=== PATIENT | male | born 1960 | race Caucasian/White ===

== ENCOUNTER 2018-07-03 13:46 | Inpatient (IN) | payer MEDICARE ==
[~2018-07-03] VITALS: Ht 188 cm; Wt 122.7 kg
[2018-07-03] MEDS ORDERED: NEOMY/BACITR/POLYMYXIN OINT PACKET. TP ONE (14:15)
[2018-07-03] MEDS ORDERED: IV NORMAL SALINE 1000ML BAG 1,000 ML IV ONE ×3 (14:15→16:00)
[2018-07-03 14:39] LABS: BASO # 0.2 x10^3/uL (0.0-0.2); BASO % 1 % (0-3); EOS # 0.4 x10^3/uL (0.0-0.7); EOS % 1 % (0-3); HEMATOCRIT 55.3 % (39.0-53.0); HEMOGLOBIN 17.5 g/dL (13.0-17.5); LYMPH # 8.8 x10^3/uL (1.0-4.8); LYMPH % 29 % (24-48); MEAN CORPUSCULAR HEMOGLOBIN 36 pg (25-35); MEAN CORPUSCULAR HGB CONC 32 g/dL (31-37); MEAN CORPUSCULAR VOLUME 112 fL (79-100); MONO # 1.8 x10^3/uL (0.0-1.1); MONO % 6 % (0-9); NEUT # 19.3 x10^3uL (1.8-7.7); NEUT % 63 % (31-73); PLATELET COUNT 373 x10^3/uL (140-400); RED BLOOD COUNT 4.92 x10^6/uL (4.30-5.70); WHITE BLOOD COUNT 30.5 x10^3/uL (4.0-11.0)
--- NOTE | 2018-07-03 14:39 | RAD ---
EXAM: Head and cervical spine CT without contrast. HISTORY: Found down. TECHNIQUE: Computed tomographic images of the head and cervical spine were obtained without contrast. *One or more of the following individualized dose reduction techniques were utilized for this examination: 1. Automated exposure control. 2. Adjustment of the mA and/or kV according to patient size. 3. Use of iterative reconstruction technique. COMPARISON: None. FINDINGS: Head: There is no hemorrhage. There is no mass effect or midline shift. There is no hydrocephalus. There are areas of decreased attenuation within the cerebral white matter, nonspecific and likely related to chronic small vessel disease. The visualized portions of the orbits, paranasal sinuses and mastoid air cells are unremarkable. No suspicious calvarial lesion is seen. Cervical spine: There is no significant listhesis. The vertebral bodies are normal in height and the disc spaces are preserved. There is mild endplate remodeling at multiple levels. There is facet arthropathy at multiple levels. No severe stenosis is seen. IMPRESSION: No acute intracranial finding or evidence of acute cervical spine trauma. Electronically signed by: Germaien Norman MD (07/03/2018 2:36 PM) [place] [id number]
--- NOTE | 2018-07-03 14:44 | EKG ---
[facility] [address] [place] [address] Test Date: 2018-07-03 Test Time: 14:00:16 Pat Name: YENIFER REESE Department: Room: Gender: M Life Underwriter: : 1960 Requested By: MARY ANNE RADFORD Order Number: [id number] Reading MD: Crispin Dooley MD Measurements Intervals [place] Rate: 156 P: -157 AL: 110 QRS: 115 QRSD: 86 T: -14 QT: 242 QTc: 390 Interpretive Statements PROBABLE ATRIAL FIBRILLATION/FLUTTER NON-SPECIFIC ST/T CHANGES Electronically Signed On 07-09-2018 10:35:32 CDT by Crispin Dooley MD
[2018-07-03 14:53] LABS: BILIRUBIN,URINE NEGATIVE (NEG); CLARITY,URINE CLEAR; COLOR,URINE YELLOW; NITRITE,URINE NEGATIVE (NEG); PROTEIN,URINE NEGATIVE (NEG-TRACE); UROBILINOGEN,URINE 0.2 mg/dL (0.2 mg/dL)
[2018-07-03 15:00] LABS: BARBITURATES NEG (NEG); BENZODIAZEPINES NEG (NEG); CANNABINOIDS NEG (NEG); COCAINE NEG (NEG); METHADONE NEG (NEG); OPIATES NEG (NEG); PHENCYCLIDINE NEG (NEG)
[2018-07-03 15:02] LABS: AMPHETAMINE/METHAMPHETAMINE NEG (NEG)
[2018-07-03 15:07] LABS: CALCIUM 9.7 mg/dL (8.5-10.1); CREATININE 2.4 mg/dL (0.7-1.3); GFR 28.1; POTASSIUM 5.5 mmol/L (3.5-5.1)
[2018-07-03 15:13] LABS: ALBUMIN 3.2 g/dL (3.4-5.0); ALBUMIN/GLOBULIN RATIO 0.9 (1.0-1.7); MAGNESIUM 4.9 mg/dL (1.8-2.4); TOTAL BILIRUBIN 0.3 mg/dL (0.2-1.0); TOTAL PROTEIN 6.6 g/dL (6.4-8.2)
[2018-07-03 15:15] LABS: BACTERIA,URINE 0 /HPF (0-FEW); RBC,URINE OCC /HPF (0-2); SQUAMOUS EPITHELIAL CELL,UR OCC /LPF; WBC,URINE 0 /HPF (0-4)
[2018-07-03 16:00] LABS: % BANDS 7 % (0-9); % EOS 1 % (0-5); % LYMPHS 35 % (24-48); % METAS 4 % (0-0); % MONOS 5 % (0-10); % MYELOS 3 % (0-0); % SEGS 45 % (35-66)
[2018-07-03 16:01] LABS: PLT ESTIMATE ADEQUATE (ADEQUATE)
[2018-07-03 16:04] LABS: POLYCHROMASIA SLIGHT
--- NOTE | 2018-07-03 16:08 | EKG ---
[facility] [address] [place] [address] Test Date: 2018-07-03 Test Time: 15:58:27 Pat Name: YENIFER REESE Department: Room: Gender: M School Age Teacher: : 1960 Requested By: MARY ANNE RADFORD Order Number: [id number] Reading MD: Crispin Dooley MD Measurements Intervals [place] Rate: 110 P: 34 [place]: 150 QRS: 91 QRSD: 90 T: 5 QT: 310 QTc: 425 Interpretive Statements SINUS TACHYCARDIA Electronically Signed On 07-09-2018 10:35:55 CDT by Crispin Dooley MD
[2018-07-03] MEDS ORDERED: PIPERACILLIN/TAZOBACTAM 4.5 GM in IV NORMAL SALINE 100ML 100 ML IV ONE (16:30)
[2018-07-03] MEDS ORDERED: DEXTROSE 50% 25 GM / 50ML DISP.SYRIN. IV PRN ×2 (16:30→17:00)
[2018-07-03] MEDS ORDERED: ONDANSETRON PF 4 MG/2 ML VIAL. IV PRN ×2 (16:30→17:00)
--- NOTE | 2018-07-03 16:53 | PDOC1 ---
History and Physical Date of Admission Date of Admission 07/03/18 Identification/Chief Complaint Chief Complaint AMS Source Source: Chart review, Patient History of Present Illness History of Present Illness 58yo M, was sent by EMS for AMS. pt looks calm now, seen in ER, said he was walking and fell , syncoped, very weak and could not get up. Pt denies dehydration, denies fever, chills, cough , sob, chest pain, diarrhea. however, not sure how much his words is reliable given that ER nurse told me that his freind said he had some mental issues and fights and was kicked out of his house/apt recently. Pt said he lives alone. As per ERP, pt was found facing down on the street, recreational therapy technician and EMS WAs called. Pt was very lethargic in ER at arrival, with HR 140s, BP 80s. now HR 110s and BP 110s after 1l IVF bolus. however, he was found very dehydrated and acidotic, with wbc 30, LA 30, Cr 2.4 , hyperglycemia, and high CK 800s. EKG sinus tach. Past Medical History Cardiovascular: HTN Endocrine: Diabetes Past Surgical History Past Surgical History: No pertinent history Family History Family History: Hypertension Social History Smoke: No ALCOHOL: none Drugs: None Current Medications Current Medications Current Medications Medications (Trade) Dose Ordered Sig/Natasha Start Time Stop Time Status Last Admin Dose Admin Dextrose (Dextrose 50%-Water Syringe) 12.5 gm PRN Q15MIN PRN 07/03/18 16:30 Insulin Human Lispro (HumaLOG) 0-5 UNITS TIDWMEALS 07/03/18 17:00 Neomycin/ Polymyxin/ Bacitracin (Triple Antibiotic Ointment) 1 pkt 1X ONCE 07/03/18 14:15 07/03/18 14:50 DC Ondansetron HCl (Zofran) 4 mg PRN Q8HRS PRN 07/03/18 16:30 07/04/18 16:29 Piperacillin Sod/ Tazobactam Sod 4.5 gm/Sodium Chloride 100 ml @ 200 mls/hr 1X ONCE 07/03/18 16:30 07/03/18 16:59 Sodium Chloride 1,000 ml @ 1,000 mls/hr 1X ONCE 07/03/18 16:00 07/03/18 16:59 Allergies Allergies Allergies Coded Allergies Type Severity Reaction Last Updated Verified No Known Drug Allergies 07/03/18 No ROS Review of System CONSTITUTIONAL: No fever or chills EYES: No recent changes SKIN: No rash or itching CARDIOVASCULAR: No chest pain, syncope, palpitations, or edema RESPIRATORY: No SOB or cough GASTROINTESTINAL: No nausea, vomiting or abdominal pain NEUROLOGICAL: No headaches or weakness ENDOCRINE: No cold or heat intolerance GENITOURINARY: No urgency or frequency of urination MUSCULOSKELETAL: No back pain or joint pain LYMPHATICS: No enlarged lymph nodes PSYCHIATRIC: No anxiety or depression Physical Exam Physical Exam GEN.: mild distress. Alert and oriented x3. HEENT: Head is normocephalic, atraumatic NECK: Supple. LUNGS: Clear to auscultation. HEART: RRR, S1, S2 present. Peripheral pulses intact ABDOMEN: Soft, nontender. Positive bowel sounds. EXTREMITIES: Without any cyanosis. NEUROLOGIC: Normal speech, normal tone PSYCHIATRIC: Normal affect, normal mood. SKIN: bl knee skin laceration from fall. Vitals Vitals Vital Signs Date Time Temp Pulse Resp B/P (MAP) Pulse Ox O2 Delivery O2 Flow Rate FiO2 07/03/18 13:46 97.6 148 44 85/46 (59) 85 Room Air 97.6 Labs Labs Laboratory Tests Test 07/03/18 13:55 07/03/18 14:04 07/03/18 14:30 07/03/18 14:51 White Blood Count 30.5 x10^3/uL (4.0-11.0) Red Blood Count 4.92 x10^6/uL (4.30-5.70) Hemoglobin 17.5 g/dL (13.0-17.5) Hematocrit 55.3 % (39.0-53.0) Mean Corpuscular Volume 112 fL (79-100) Mean Corpuscular Hemoglobin 36 pg (25-35) Mean Corpuscular Hemoglobin Concent 32 g/dL (31-37) Red Cell Distribution Width 15.0 % (11.5-14.5) Platelet Count 373 x10^3/uL (140-400) Neutrophils (%) (Auto) 63 % (31-73) Lymphocytes (%) (Auto) 29 % (24-48) Monocytes (%) (Auto) 6 % (0-9) Eosinophils (%) (Auto) 1 % (0-3) Basophils (%) (Auto) 1 % (0-3) Neutrophils # (Auto) 19.3 x10^3uL (1.8-7.7) Lymphocytes # (Auto) 8.8 x10^3/uL (1.0-4.8) Monocytes # (Auto) 1.8 x10^3/uL (0.0-1.1) Eosinophils # (Auto) 0.4 x10^3/uL (0.0-0.7) Basophils # (Auto) 0.2 x10^3/uL (0.0-0.2) Segmented Neutrophils % 45 % (35-66) Band Neutrophils % 7 % (0-9) Lymphocytes % 35 % (24-48) Monocytes % 5 % (0-10) Eosinophils % 1 % (0-5) Metamyelocytes % 4 % (0-0) Myelocytes % 3 % (0-0) Platelet Estimate Adequate (ADEQUATE) Large Platelets Few Polychromasia Slight Macrocytosis Slight Prothrombin Time 15.0 SEC (11.7-14.0) Prothromb Time International Ratio 1.2 (0.8-1.1) Lactic Acid Level 30.1 mmol/L (0.4-2.0) Troponin I Quantitative < 0.017 ng/mL (0.000-0.055) Ethyl Alcohol Level < 10 mg/dL (0-10) Glucose (Fingerstick) 249 mg/dL (70-99) Urine Collection Type Unknown Urine Color Yellow Urine Clarity Clear Urine pH 7.0 Urine Specific [place] 1.010 Urine Protein Negative mg/dL (NEG-TRACE) Urine Glucose (UA) 500 mg/dL (NEG) Urine Ketones (Stick) Negative mg/dL (NEG) Urine Blood Small (NEG) Urine Nitrite Negative (NEG) Urine Bilirubin Negative (NEG) Urine Urobilinogen Dipstick 0.2 mg/dL (0.2 mg/dL) Urine Leukocyte Esterase Negative (NEG) Urine RBC Occ /HPF (0-2) Urine WBC 0 /HPF (0-4) Urine Squamous Epithelial Cells Occ /LPF Urine Bacteria 0 /HPF (0-FEW) Urine Opiates Screen Neg (NEG) Urine Methadone Screen Neg (NEG) Urine Barbiturates Neg (NEG) Urine Phencyclidine Screen Neg (NEG) Urine Amphetamine/Methamphetamine Neg (NEG) Urine Benzodiazepines Screen Neg (NEG) Urine Cocaine Screen Neg (NEG) Urine Cannabinoids Screen Neg (NEG) Urine Ethyl Alcohol Neg (NEG) Sodium Level 132 mmol/L (136-145) Potassium Level 5.5 mmol/L (3.5-5.1) Chloride Level 94 mmol/L (98-107) Carbon Dioxide Level 15 mmol/L (21-32) Anion Gap 23 (6-14) Blood Urea Nitrogen 30 mg/dL (8-26) Creatinine 2.4 mg/dL (0.7-1.3) Estimated GFR (Cockcroft-Gault) 28.1 BUN/Creatinine Ratio 13 (6-20) Glucose Level 265 mg/dL (70-99) Calcium Level 9.7 mg/dL (8.5-10.1) Magnesium Level 4.9 mg/dL (1.8-2.4) Total Bilirubin 0.3 mg/dL (0.2-1.0) Aspartate Amino Transf (AST/SGOT) 33 U/L (15-37) Alanine Aminotransferase (ALT/SGPT) 71 U/L (16-63) Alkaline Phosphatase 89 U/L (46-116) Creatine Kinase 872 U/L (39-308) Creatine Kinase MB (Mass) 5.4 ng/mL (0.0-3.6) Creatine Kinase MB Relative Index 0.6 % (0-4) UM-Uak-N-Type Natriuretic Peptide 44 pg/mL (0-124) Total Protein 6.6 g/dL (6.4-8.2) Albumin 3.2 g/dL (3.4-5.0) Albumin/Globulin Ratio 0.9 (1.0-1.7) Lipase 279 U/L (73-393) Laboratory Tests Test 07/03/18 13:55 07/03/18 14:04 07/03/18 14:30 07/03/18 14:51 White Blood Count 30.5 x10^3/uL (4.0-11.0) Red Blood Count 4.92 x10^6/uL (4.30-5.70) Hemoglobin 17.5 g/dL (13.0-17.5) Hematocrit 55.3 % (39.0-53.0) Mean Corpuscular Volume 112 fL (79-100) Mean Corpuscular Hemoglobin 36 pg (25-35) Mean Corpuscular Hemoglobin Concent 32 g/dL (31-37) Red Cell Distribution Width 15.0 % (11.5-14.5) Platelet Count 373 x10^3/uL (140-400) Neutrophils (%) (Auto) 63 % (31-73) Lymphocytes (%) (Auto) 29 % (24-48) Monocytes (%) (Auto) 6 % (0-9) Eosinophils (%) (Auto) 1 % (0-3) Basophils (%) (Auto) 1 % (0-3) Neutrophils # (Auto) 19.3 x10^3uL (1.8-7.7) Lymphocytes # (Auto) 8.8 x10^3/uL (1.0-4.8) Monocytes # (Auto) 1.8 x10^3/uL (0.0-1.1) Eosinophils # (Auto) 0.4 x10^3/uL (0.0-0.7) Basophils # (Auto) 0.2 x10^3/uL (0.0-0.2) Segmented Neutrophils % 45 % (35-66) Band Neutrophils % 7 % (0-9) Lymphocytes % 35 % (24-48) Monocytes % 5 % (0-10) Eosinophils % 1 % (0-5) Metamyelocytes % 4 % (0-0) Myelocytes % 3 % (0-0) Platelet Estimate Adequate (ADEQUATE) Large Platelets Few Polychromasia Slight Macrocytosis Slight Prothrombin Time 15.0 SEC (11.7-14.0) Prothromb Time International Ratio 1.2 (0.8-1.1) Lactic Acid Level 30.1 mmol/L (0.4-2.0) Troponin I Quantitative < 0.017 ng/mL (0.000-0.055) Ethyl Alcohol Level < 10 mg/dL (0-10) Glucose (Fingerstick) 249 mg/dL (70-99) Urine Collection Type Unknown Urine Color Yellow Urine Clarity Clear Urine pH 7.0 Urine Specific [place] 1.010 Urine Protein Negative mg/dL (NEG-TRACE) Urine Glucose (UA) 500 mg/dL (NEG) Urine Ketones (Stick) Negative mg/dL (NEG) Urine Blood Small (NEG) Urine Nitrite Negative (NEG) Urine Bilirubin Negative (NEG) Urine Urobilinogen Dipstick 0.2 mg/dL (0.2 mg/dL) Urine Leukocyte Esterase Negative (NEG) Urine RBC Occ /HPF (0-2) Urine WBC 0 /HPF (0-4) Urine Squamous Epithelial Cells Occ /LPF Urine Bacteria 0 /HPF (0-FEW) Urine Opiates Screen Neg (NEG) Urine Methadone Screen Neg (NEG) Urine Barbiturates Neg (NEG) Urine Phencyclidine Screen Neg (NEG) Urine Amphetamine/Methamphetamine Neg (NEG) Urine Benzodiazepines Screen Neg (NEG) Urine Cocaine Screen Neg (NEG) Urine Cannabinoids Screen Neg (NEG) Urine Ethyl Alcohol Neg (NEG) Sodium Level 132 mmol/L (136-145) Potassium Level 5.5 mmol/L (3.5-5.1) Chloride Level 94 mmol/L (98-107) Carbon Dioxide Level 15 mmol/L (21-32) Anion Gap 23 (6-14) Blood Urea Nitrogen 30 mg/dL (8-26) Creatinine 2.4 mg/dL (0.7-1.3) Estimated GFR (Cockcroft-Gault) 28.1 BUN/Creatinine Ratio 13 (6-20) Glucose Level 265 mg/dL (70-99) Calcium Level 9.7 mg/dL (8.5-10.1) Magnesium Level 4.9 mg/dL (1.8-2.4) Total Bilirubin 0.3 mg/dL (0.2-1.0) Aspartate Amino Transf (AST/SGOT) 33 U/L (15-37) Alanine Aminotransferase (ALT/SGPT) 71 U/L (16-63) Alkaline Phosphatase 89 U/L (46-116) Creatine Kinase 872 U/L (39-308) Creatine Kinase MB (Mass) 5.4 ng/mL (0.0-3.6) Creatine Kinase MB Relative Index 0.6 % (0-4) OR-Hyl-K-Type Natriuretic Peptide 44 pg/mL (0-124) Total Protein 6.6 g/dL (6.4-8.2) Albumin 3.2 g/dL (3.4-5.0) Albumin/Globulin Ratio 0.9 (1.0-1.7) Lipase 279 U/L (73-393) VTE Prophylaxis Ordered VTE Prophylaxis Devices: Yes VTE Pharmacological Prophylaxi: Yes Assessment/Plan Assessment/Plan AMS, metabolic encephalopathy fall, syncope possible sepsis hypotension resolved with iv bolus dehydration metabolic acidosis lactate acidosis TARYN, ATN, vs vasomotor hyperglycemia, dm2 htn hld leukocytosis h/o mental issues mild malnutrition plan: ID, renal consult renal US add zyvox and zosyn for now, fu bcx, ucx ssi, check hba1c need to verify home meds NS 125cc/h for now, 3L in ER, will repeat LA, BMP later repeat labs tmr dvt ppx PTOT ada DIET CATHERINE RAMIREZ MD Jul 03, 2018 16:53
[2018-07-03] MEDS ORDERED: INSULIN LISPRO 300 UNITS/3 ML INSULN.PEN. SQ SCH (17:00)
[2018-07-03] MEDS ORDERED: PIP/TAZO PER PHARMACY MC PRN (17:00)
[2018-07-03] MEDS ORDERED: DOCUSATE SODIUM 100 MG CAPSULE. PO PRN (17:00)
--- NOTE | 2018-07-03 17:10 | RAD ---
CHEST AP ONLY History: Syncope today, fall, diabetes, hypertension Comparison: None. Findings: Single view of the chest is submitted. Pericardial cardiac silhouette is upper limits of normal. There is no pneumothorax or significant pleural fluid. There is reticular interstitial opacity bilaterally of uncertain chronicity. There is no lobar consolidation. Impression: 1. There is no lobar consolidation. There is some reticular interstitial opacity bilaterally of uncertain chronicity. Electronically signed by: Louis Hernandez MD (07/03/2018 5:07 PM) [id number]
--- NOTE | 2018-07-03 17:29 | RAD ---
Three-view left shoulder radiographs 07/03/2018 CLINICAL HISTORY: Fall with injury to the left shoulder. AP internal and external rotation and transscapular digital radiographs of the left shoulder were obtained. No fracture or dislocation of the left shoulder is seen. Mild degenerative changes are seen involving the left humeral joint. Mild to moderate degenerative changes are seen involving the left AC joint. IMPRESSION: No fracture or dislocation of the left shoulder is seen. Electronically signed by: Gabriel Caal MD (07/03/2018 5:25 PM) [facility]
--- NOTE | 2018-07-03 17:30 | RAD ---
Three-view left knee radiographs 07/04/2018 CLINICAL HISTORY: Fall with injury to the left knee. Portable AP, lateral and oblique digital radiographs of the left knee were obtained. No fracture or dislocation of the left knee is seen. There is no radiographic evidence of a joint effusion. IMPRESSION: No fracture or dislocation of the left knee is seen. Electronically signed by: Gabriel Caal MD (07/03/2018 5:26 PM) [facility]
--- NOTE | 2018-07-03 17:45 | PHYS DOC ---
Past Medical History Past Medical History: Bipolar, Diabetes-Type II, High Cholesterol, Hypertension Past Surgical History: No Surgical History Alcohol Use: None Drug Use: None Adult General Chief Complaint Chief Complaint: LOSS OF CONSCIOUSNESS HPI HPI Patient is a 58 year old [f__sex] who presents with [] Review of Systems Review of Systems Constitutional: Denies fever or chills [] Eyes: Denies change in visual acuity, redness, or eye pain [] HENT: Denies nasal congestion or sore throat [] Respiratory: Denies cough or shortness of breath [] Cardiovascular: No additional information not addressed in HPI [] GI: Denies abdominal pain, nausea, vomiting, bloody stools or diarrhea [] : Denies dysuria or hematuria [] Musculoskeletal: Denies back pain or joint pain [] Integument: Denies rash or skin lesions [] Neurologic: Denies headache, focal weakness or sensory changes [] Endocrine: Denies polyuria or polydipsia [] All other systems were reviewed and found to be within normal limits, except as documented in this note. Current Medications Current Medications Current Medications Medications (Trade) Dose Ordered Sig/Natasha Start Time Stop Time Status Last Admin Dose Admin Acetaminophen (Tylenol) 650 mg PRN Q6HRS PRN 07/03/18 17:00 Dextrose (Dextrose 50%-Water Syringe) 12.5 gm PRN Q15MIN PRN 07/03/18 17:00 Docusate Sodium (Colace) 100 mg PRN DAILY PRN 07/03/18 17:00 Heparin Sodium (Porcine) (Heparin Sq) 5,000 unit Q8HRS 07/03/18 22:00 Insulin Human Lispro (HumaLOG) 0-9 UNITS TIDWMEALS 07/03/18 17:00 UNV Linezolid/Dextrose 300 ml @ 300 mls/hr 1X ONCE 07/03/18 18:00 07/03/18 18:59 Morphine Sulfate (Morphine Sulfate) 2 mg PRN Q2HR PRN 07/03/18 17:00 Neomycin/ Polymyxin/ Bacitracin (Triple Antibiotic Ointment) 1 pkt 1X ONCE 07/03/18 14:15 07/03/18 14:50 DC Ondansetron HCl (Zofran) 4 mg PRN Q6HRS PRN 07/03/18 17:00 Piperacillin Sod/ Tazobactam Sod (Zosyn Per Pharmacy) 1 each PRN DAILY PRN 07/03/18 17:00 UNV Piperacillin Sod/ Tazobactam Sod 3.375 gm/Sodium Chloride 50 ml @ 100 mls/hr Q6HRS 07/04/18 00:00 UNV Piperacillin Sod/ Tazobactam Sod 4.5 gm/Sodium Chloride 100 ml @ 200 mls/hr 1X ONCE 07/03/18 16:30 07/03/18 16:59 DC Sodium Chloride 1,000 ml @ 125 mls/hr Q8H 07/03/18 17:00 Tramadol HCl (Ultram) 50 mg PRN Q6HRS PRN 07/03/18 17:00 Allergies Allergies Allergies Coded Allergies Type Severity Reaction Last Updated Verified No Known Drug Allergies 07/03/18 No Physical Exam Physical Exam Constitutional: Well developed, well nourished, no acute distress, non-toxic appearance. [] HENT: Normocephalic, atraumatic, bilateral external ears normal, oropharynx moist, no oral exudates, nose normal. [] Eyes: PERRLA, EOMI, conjunctiva normal, no discharge. [] Neck: Normal range of motion, no tenderness, supple, no stridor. [] Cardiovascular:Heart rate regular rhythm, no murmur [] Lungs & Thorax: Bilateral breath sounds clear to auscultation [] Abdomen: Bowel sounds normal, soft, no tenderness, no masses, no pulsatile masses. [] Skin: Warm, dry, no erythema, no rash. [] Back: No tenderness, no CVA tenderness. [] Extremities: No tenderness, no cyanosis, no clubbing, ROM intact, no edema. [] Neurologic: Alert and oriented X 3, normal motor function, normal sensory function, no focal deficits noted. [] Psychologic: Affect normal, judgement normal, mood normal. [] Current Patient Data Vital Signs Vital Signs Date Time Temp Pulse Resp B/P (MAP) Pulse Ox O2 Delivery O2 Flow Rate FiO2 07/03/18 16:30 108 24 94 07/03/18 13:46 97.6 85/46 (59) Room Air 97.6 Lab Values Laboratory Tests Test 07/03/18 13:55 07/03/18 14:04 07/03/18 14:30 07/03/18 14:51 White Blood Count 30.5 x10^3/uL (4.0-11.0) H Red Blood Count 4.92 x10^6/uL (4.30-5.70) Hemoglobin 17.5 g/dL (13.0-17.5) Hematocrit 55.3 % (39.0-53.0) H Mean Corpuscular Volume 112 fL (79-100) H Mean Corpuscular Hemoglobin 36 pg (25-35) H Mean Corpuscular Hemoglobin Concent 32 g/dL (31-37) Red Cell Distribution Width 15.0 % (11.5-14.5) H Platelet Count 373 x10^3/uL (140-400) Neutrophils (%) (Auto) 63 % (31-73) Lymphocytes (%) (Auto) 29 % (24-48) Monocytes (%) (Auto) 6 % (0-9) Eosinophils (%) (Auto) 1 % (0-3) Basophils (%) (Auto) 1 % (0-3) Neutrophils # (Auto) 19.3 x10^3uL (1.8-7.7) H Lymphocytes # (Auto) 8.8 x10^3/uL (1.0-4.8) H Monocytes # (Auto) 1.8 x10^3/uL (0.0-1.1) H Eosinophils # (Auto) 0.4 x10^3/uL (0.0-0.7) Basophils # (Auto) 0.2 x10^3/uL (0.0-0.2) Segmented Neutrophils % 45 % (35-66) Band Neutrophils % 7 % (0-9) Lymphocytes % 35 % (24-48) Monocytes % 5 % (0-10) Eosinophils % 1 % (0-5) Metamyelocytes % 4 % (0-0) H Myelocytes % 3 % (0-0) H Platelet Estimate Adequate (ADEQUATE) Large Platelets Few Polychromasia Slight Macrocytosis Slight Prothrombin Time 15.0 SEC (11.7-14.0) H Prothrombin Time INR 1.2 (0.8-1.1) H Lactic Acid Level 30.1 mmol/L (0.4-2.0) *H Troponin I Quantitative < 0.017 ng/mL (0.000-0.055) Ethyl Alcohol Level < 10 mg/dL (0-10) Glucose (Fingerstick) 249 mg/dL (70-99) H Urine Collection Type Unknown Urine Color Yellow Urine Clarity Clear Urine pH 7.0 Urine Specific [place] 1.010 Urine Protein Negative mg/dL (NEG-TRACE) Urine Glucose (UA) 500 mg/dL (NEG) Urine Ketones (Stick) Negative mg/dL (NEG) Urine Blood Small (NEG) Urine Nitrite Negative (NEG) Urine Bilirubin Negative (NEG) Urine Urobilinogen Dipstick 0.2 mg/dL (0.2 mg/dL) Urine Leukocyte Esterase Negative (NEG) Urine RBC Occ /HPF (0-2) Urine WBC 0 /HPF (0-4) Urine Squamous Epithelial Cells Occ /LPF Urine Bacteria 0 /HPF (0-FEW) Urine Opiates Screen Neg (NEG) Urine Methadone Screen Neg (NEG) Urine Barbiturates Neg (NEG) Urine Phencyclidine Screen Neg (NEG) Urine Amphetamine/Methamphetamine Neg (NEG) Urine Benzodiazepines Screen Neg (NEG) Urine Cocaine Screen Neg (NEG) Urine Cannabinoids Screen Neg (NEG) Urine Ethyl Alcohol Neg (NEG) Sodium Level 132 mmol/L (136-145) L Potassium Level 5.5 mmol/L (3.5-5.1) H Chloride Level 94 mmol/L (98-107) L Carbon Dioxide Level 15 mmol/L (21-32) L Anion Gap 23 (6-14) H Blood Urea Nitrogen 30 mg/dL (8-26) H Creatinine 2.4 mg/dL (0.7-1.3) H Estimated GFR (Cockcroft-Gault) 28.1 BUN/Creatinine Ratio 13 (6-20) Glucose Level 265 mg/dL (70-99) H Calcium Level 9.7 mg/dL (8.5-10.1) Magnesium Level 4.9 mg/dL (1.8-2.4) H Total Bilirubin 0.3 mg/dL (0.2-1.0) Aspartate Amino Transferase (AST) 33 U/L (15-37) Alanine Aminotransferase (ALT) 71 U/L (16-63) H Alkaline Phosphatase 89 U/L (46-116) Creatine Kinase 872 U/L (39-308) H Creatine Kinase MB (Mass) 5.4 ng/mL (0.0-3.6) H Creatine Kinase MB Relative Index 0.6 % (0-4) LR-Ipu-P-Type Natriuretic Peptide 44 pg/mL (0-124) Total Protein 6.6 g/dL (6.4-8.2) Albumin 3.2 g/dL (3.4-5.0) L Albumin/Globulin Ratio 0.9 (1.0-1.7) L Lipase 279 U/L (73-393) Laboratory Tests 07/03/18 13:55 Laboratory Tests 07/03/18 14:51 EKG EKG @1400 Sinus tachycardia at 156bpm, baseline artifact, NO ST elevation @1558 Sinus tachycardia at 110bpm, No ST elevation, nonspecific t wave inversion III Radiology/Procedures Radiology/Procedures PROCEDURE: CT HEAD AND CERVICAL SPINE WO EXAM: Head and cervical spine CT without contrast. HISTORY: Found down. TECHNIQUE: Computed tomographic images of the head and cervical spine were obtained without contrast. *One or more of the following individualized dose reduction techniques were utilized for this examination: 1. Automated exposure control. 2. Adjustment of the mA and/or kV according to patient size. 3. Use of iterative reconstruction technique. COMPARISON: None. FINDINGS: Head: There is no hemorrhage. There is no mass effect or midline shift. There is no hydrocephalus. There are areas of decreased attenuation within the cerebral white matter, nonspecific and likely related to chronic small vessel disease. The visualized portions of the orbits, paranasal sinuses and mastoid air cells are unremarkable. No suspicious calvarial lesion is seen. Cervical spine: There is no significant listhesis. The vertebral bodies are normal in height and the disc spaces are preserved. There is mild endplate remodeling at multiple levels. There is facet arthropathy at multiple levels. No severe stenosis is seen. IMPRESSION: No acute intracranial finding or evidence of acute cervical spine trauma. Electronically signed by: Germaine Norman MD (07/03/2018 2:36 PM) [facility] PROCEDURE: SHOULDER 2+V LEFT Three-view left shoulder radiographs 07/03/2018 CLINICAL HISTORY: Fall with injury to the left shoulder. AP internal and external rotation and transscapular digital radiographs of the left shoulder were obtained. No fracture or dislocation of the left shoulder is seen. Mild degenerative changes are seen involving the left humeral joint. Mild to moderate degenerative changes are seen involving the left AC joint. IMPRESSION: No fracture or dislocation of the left shoulder is seen. Electronically signed by: Gabriel Caal MD (07/03/2018 5:25 PM) [facility] PROCEDURE: KNEE LEFT 3V Three-view left knee radiographs 07/04/2018 CLINICAL HISTORY: Fall with injury to the left knee. Portable AP, lateral and oblique digital radiographs of the left knee were obtained. No fracture or dislocation of the left knee is seen. There is no radiographic evidence of a joint effusion. IMPRESSION: No fracture or dislocation of the left knee is seen. Electronically signed by: Gabriel Caal MD (07/03/2018 5:26 PM) [facility] PROCEDURE: CHEST AP ONLY CHEST AP ONLY History: Syncope today, fall, diabetes, hypertension Comparison: None. Findings: Single view of the chest is submitted. Pericardial cardiac silhouette is upper limits of normal. There is no pneumothorax or significant pleural fluid. There is reticular interstitial opacity bilaterally of uncertain chronicity. There is no lobar consolidation. Impression: 1. There is no lobar consolidation. There is some reticular interstitial opacity bilaterally of uncertain chronicity. Electronically signed by: Louis Hernandez MD (07/03/2018 5:07 PM) [facility] Course & Med Decision Making Course & Med Decision Making Pertinent Labs and Imaging studies reviewed. (See chart for details) [] Dragon Disclaimer Dragon Disclaimer This electronic medical record was generated, in whole or in part, using a voice recognition dictation system. Departure Departure Impression: Primary Impression: Altered mental state Additional Impressions: Lactic acidosis Leukocytosis Renal insufficiency Hypotension Left shoulder pain Left knee pain Multiple abrasions Disposition: ADMITTED INPATIENT Admitting Physician: Xie. Potter Condition: GUARDED Referrals: JOHNATHON GUY MD (PCP) Critical Care Time Critical care time was 45 minutes which includes time at bedside, spent in discussion of patient's care with specialists and/or family members, with interpretation of laboratory and/or radiological studies and is exclusive of procedures. Problem Qualifiers Primary Impression: Altered mental state Altered mental status type: unspecified Qualified Codes: R41.82 - Altered mental status, unspecified Additional Impressions: Leukocytosis Leukocytosis type: unspecified Qualified Codes: D72.829 - Elevated white blood cell count, unspecified Hypotension Hypotension type: unspecified hypotension type Qualified Codes: I95.9 - Hypotension, unspecified Left shoulder pain Chronicity: acute Qualified Codes: M25.512 - Pain in left shoulder Left knee pain Chronicity: acute Qualified Codes: M25.562 - Pain in left knee MARY ANNE RADFORD DO Jul 03, 2018 17:45
--- NOTE | 2018-07-03 18:48 | RAD ---
Perfusion only lung scan 07/03/2018 CLINICAL HISTORY: Hypoxia. TECHNIQUE: After the intravenous administration of 6.5 mCi of Technetium 99m MAA, perfusion images of both lungs were obtained using the gamma camera. FINDINGS: The patient refused the ventilation portion of the study. Comparison is made to a portable chest radiograph performed earlier today. This demonstrates mild cardiomegaly. No acute pulmonary infiltrate is seen. Homogenous perfusion throughout both lungs is seen. No perfusion defect is noted. IMPRESSION: Normal perfusion lung scan. Electronically signed by: Gabriel Caal MD (07/03/2018 6:44 PM) [facility]
[2018-07-03 19:33] VITALS: BP 135/82
[2018-07-03 19:34] VITALS: BP 135/82
--- NOTE | 2018-07-03 20:23 | RAD ---
Renal ultrasound 07/03/2018 CLINICAL HISTORY: Acute renal failure. TECHNIQUE: A real-time ultrasound examination of both kidneys and the urinary bladder was performed. Multiple images were obtained. FINDINGS: The study is limited to some degree due to the patient's large body habitus and inability to cooperate with the orthopedic radiologic technologist with patient positioning. Both kidneys are within normal limits in size. The right kidney measures 13.0 cm in length. The left kidney measures 11.6 cm in length. A 2.3 cm cyst is seen involving the medial aspect of the right kidney. No focal abnormality of the left kidney is seen. There is no evidence of hydronephrosis. The urinary bladder is distended with urine. No abnormality is seen. IMPRESSION: Negative study. Electronically signed by: Gabriel Caal MD (07/03/2018 8:19 PM) [facility]
[2018-07-03] MEDS: traMADol 50 MG TABLET PO PRN (20:34)
[2018-07-03] MEDS ORDERED: LISI10TA2 PO (20:46)
[2018-07-03] MEDS ORDERED: ZIPR80CA2 PO (20:46)
[2018-07-03] MEDS ORDERED: METF10007 PO (20:46)
[2018-07-03] MEDS: IV NORMAL SALINE 1000ML BAG 1,000 ML IV SCH (21:12)
[2018-07-03] MEDS: INSULIN LISPRO 300 UNITS/3 ML INSULN.PEN. SQ SCH (21:18)
[2018-07-03] MEDS: HEPARIN PF for SUB-Q USE 5,000 UNIT/0.5 ML VIAL. SQ SCH (22:00)
[2018-07-03 22:34] VITALS: BP 131/84
[2018-07-03 22:51] LABS: CALCIUM 8.1 mg/dL (8.5-10.1); CREATININE 1.7 mg/dL (0.7-1.3); GFR 41.9; POTASSIUM 4.2 mmol/L (3.5-5.1)
[2018-07-04] MEDS ORDERED: PIPERACILLIN/TAZOBACTAM 3.375 GM in IV NORMAL SALINE 50ML 50 ML IV SCH ×2
[2018-07-04 00:13] LABS: HEMOGLOBIN A1C 9.1 % (4.8-5.6)
[2018-07-04] MEDS: MORPHINE SULFATE 2 MG/ML VIAL. IV PRN ×3 (00:46→23:35)
[2018-07-04] MEDS: PIPERACILLIN/TAZOBACTAM 4.5 GM in IV NORMAL SALINE 100ML 100 ML IV SCH ×2 (00:46→05:29)
[2018-07-04 03:00] VITALS: BP 144/100
[2018-07-04] MEDS: traMADol 50 MG TABLET PO PRN ×2 (03:01→12:42)
[2018-07-04] MEDS: IV NORMAL SALINE 1000ML BAG 1,000 ML IV SCH ×4 (03:01→21:52)
[2018-07-04] MEDS: HEPARIN PF for SUB-Q USE 5,000 UNIT/0.5 ML VIAL. SQ SCH ×3 (05:29→20:03)
[2018-07-04 05:40] LABS: BASO % 0 % (0-3); EOS % 0 % (0-3); HEMATOCRIT 46.6 % (39.0-53.0); HEMOGLOBIN 16.2 g/dL (13.0-17.5); LYMPH # 1.2 x10^3/uL (1.0-4.8); LYMPH % 8 % (24-48); MEAN CORPUSCULAR HEMOGLOBIN 35 pg (25-35); MEAN CORPUSCULAR HGB CONC 35 g/dL (31-37); MEAN CORPUSCULAR VOLUME 102 fL (79-100); MONO # 1.1 x10^3/uL (0.0-1.1); MONO % 7 % (0-9); NEUT # 12.2 x10^3uL (1.8-7.7); NEUT % 84 % (31-73); PLATELET COUNT 285 x10^3/uL (140-400); RED BLOOD COUNT 4.59 x10^6/uL (4.30-5.70); RED CELL DISTRIBUTION WIDTH 13.5 % (11.5-14.5); WHITE BLOOD COUNT 14.5 x10^3/uL (4.0-11.0)
[2018-07-04 06:21] LABS: CALCIUM 7.9 mg/dL (8.5-10.1); CREATININE 1.5 mg/dL (0.7-1.3); GFR 48.4; POTASSIUM 4.4 mmol/L (3.5-5.1)
[2018-07-04 07:00] VITALS: BP 160/98
[2018-07-04] MEDS: INSULIN LISPRO 300 UNITS/3 ML INSULN.PEN. SQ SCH ×3 (08:17→17:35)
[2018-07-04 08:25] LABS: MAGNESIUM 2.8 mg/dL (1.8-2.4)
[2018-07-04 08:26] LABS: CHOLESTEROL/HDL RATIO 1.9
--- NOTE | 2018-07-04 09:36 | PDOC2 ---
CONSULT Date of Consult Date of Consult DATE: 07/04/18 TIME: 09:26 Reason for Consult Reason for Consult: TARYN Source Source: Chart review, Patient History of Present Illness Reason for Visit: Pt is a 58yo CM, admitted with AMS. He states he was walking and fell - syncope - was feeling very weak and could not get up. As per ERP, pt was found facing down on the street- court specialist and EMS was called.He was very lethargic in ER with HR 140s, BP 80s, acidotic, WBC 30, LA 30, Cr 2.4, CK 800s. Denies fever, chills, cough ,sob, chest pain, diarrhea or Vomiting . Denies any dizziness Denies any urinary complaints . Denies any NSAID use Home med- lisinopril, Geodon , metformin, ?statin He had some mental issues and fights and was kicked out of his house/apt recently. Past Medical History Cardiovascular: HTN Endocrine: Diabetes Past Surgical History Past Surgical History: No pertinent history Family History Family History: Hypertension Social History No ALCOHOL: none Drugs: None Current Problem List Problem List Problems Medical Problems: (1) Altered mental state Status: Acute (2) Hypotension Status: Acute (3) Lactic acidosis Status: Acute (4) Left knee pain Status: Acute (5) Left shoulder pain Status: Acute (6) Leukocytosis Status: Acute (7) Multiple abrasions Status: Acute (8) Renal insufficiency Status: Acute Current Medications Current Medications Current Medications Sodium Chloride 1,000 ml @ 1,000 mls/hr 1X ONCE IV Last administered on at 14:15; Start 07/03/18 at 14:15; Stop 07/03/18 at 15:14; Status DC Neomycin/ Polymyxin/ Bacitracin (Triple Antibiotic Ointment) 1 pkt 1X ONCE TP ; Start 07/03/18 at 14:15; Stop 07/03/18 at 14:50; Status DC Sodium Chloride 1,000 ml @ 1,000 mls/hr 1X ONCE IV Last administered on at 15:15; Start 07/03/18 at 15:15; Stop 07/03/18 at 16:14; Status DC Sodium Chloride 1,000 ml @ 1,000 mls/hr 1X ONCE IV Last administered on at 16:00; Start 07/03/18 at 16:00; Stop 07/03/18 at 16:59; Status DC Piperacillin Sod/ Tazobactam Sod 4.5 gm/Sodium Chloride 100 ml @ 200 mls/hr 1X ONCE IV ; Start 07/03/18 at 16:30; Stop 07/03/18 at 16:59; Status DC Ondansetron HCl (Zofran) 4 mg PRN Q8HRS PRN IV NAUSEA/VOMITING; Start 07/03/18 at 16:30; Stop 07/03/18 at 17:09; Status DC Insulin Human Lispro (HumaLOG) 0-5 UNITS TIDWMEALS SQ ; Start 07/03/18 at 17:00 ; Stop 07/03/18 at 17:00; Status DC Dextrose (Dextrose 50%-Water Syringe) 12.5 gm PRN Q15MIN PRN IV SEE COMMENTS; Start 07/03/18 at 16:30; Stop 07/03/18 at 17:10; Status DC Sodium Chloride 1,000 ml @ 125 mls/hr Q8H IV Last administered on 07/04/18at 03 :01; Start 07/03/18 at 17:00 Acetaminophen (Tylenol) 650 mg PRN Q6HRS PRN PO FEVER; Start 07/03/18 at 17:00 Ondansetron HCl (Zofran) 4 mg PRN Q6HRS PRN IV NAUSEA/VOMITING; Start 07/03/18 at 17:00 Morphine Sulfate (Morphine Sulfate) 2 mg PRN Q2HR PRN IV MODERATE TO SEVERE PAIN Last administered on 07/04/18at 00:46; Start 07/03/18 at 17:00 Tramadol HCl (Ultram) 50 mg PRN Q6HRS PRN PO MILD TO MODERATE PAIN Last administered on 07/04/18at 03:01; Start 07/03/18 at 17:00 Docusate Sodium (Colace) 100 mg PRN DAILY PRN PO CONSTIPATION; Start 07/03/18 at 17:00 Piperacillin Sod/ Tazobactam Sod 3.375 gm/Sodium Chloride 50 ml @ 100 mls/hr Q6HRS IV ; Start 07/04/18 at 00:00; Status UNV Piperacillin Sod/ Tazobactam Sod (Zosyn Per Pharmacy) 1 each PRN DAILY PRN MC SEE COMMENTS; Start 07/03/18 at 17:00 Linezolid/Dextrose 300 ml @ 300 mls/hr Q12HR IV Last administered on at 08:06; Start 07/04/18 at 09:00 Heparin Sodium (Porcine) (Heparin Sq) 5,000 unit Q8HRS SQ ; Start 07/03/18 at 22 :00 Insulin Human Lispro (HumaLOG) 0-9 UNITS TIDWMEALS SQ Last administered on 07/04at 08:17; Start 07/03/18 at 18:15 Dextrose (Dextrose 50%-Water Syringe) 12.5 gm PRN Q15MIN PRN IV SEE COMMENTS; Start 07/03/18 at 17:00 Linezolid/Dextrose 300 ml @ 300 mls/hr 1X ONCE IV Last administered on at 21:12; Start 07/03/18 at 18:00; Stop 07/03/18 at 18:59; Status DC Piperacillin Sod/ Tazobactam Sod 4.5 gm/Sodium Chloride 100 ml @ 200 mls/hr Q6HRS IV Last administered on 07/04/18at 05:29; Start 07/04/18 at 00:00 Active Scripts Active Reported Lisinopril 10 Mg Tablet 1 Tab PO DAILY Metformin Hcl 1,000 Mg Tablet 1,000 Mg PO BIDWMEALS Geodon (Ziprasidone Hcl) 80 Mg Capsule 1 Cap PO BID Allergies Allergies: Coded Allergies: No Known Drug Allergies (Unverified , 07/03/18) ROS Review of System As per HPI Physical Exam Physical Exam GEN.: nad HEENT: NECK: Supple. LUNGS: Clear to auscultation, non labored HEART: RRR, S1, S2 present. ABDOMEN: Soft, nontender. EXTREMITIES: No edema NEUROLOGIC: AxO x 3 SKIN: bl knee skin laceration from fall No CVA/SP tenderness Vital Signs Vital Signs Date Time Temp Pulse Resp B/P (MAP) Pulse Ox O2 Delivery O2 Flow Rate FiO2 07/04/18 08:00 Room Air 07/04/18 07:00 97.9 104 20 160/98 (118 94 97.9 Assessment & Plan TARYN- Etiology Rhabdomyolysis /Pre-renal CPK elevated -? Seizure Renal function Improving, continue IVF ,doesnt have Brothers, Strict I/O renal US and UA Normal Baseline renal function unknown Currently No emergent indication for QUALITY ASSURANCE ASSISTANT Hypocalcemia- Sec to Rhabdo Avoid replacement unless pt symptomatic , to avoid Hypercalcemia, as pt improves Hyponatremia- Normal Na corrected for Glucose Hyperkalemia- Resolved Hypotension- on admission Resolved with IVF DM- On metformin Labs Labs Laboratory Tests Test 07/03/18 13:55 07/03/18 14:04 07/03/18 14:30 07/03/18 14:51 White Blood Count 30.5 x10^3/uL (4.0-11.0) Red Blood Count 4.92 x10^6/uL (4.30-5.70) Hemoglobin 17.5 g/dL (13.0-17.5) Hematocrit 55.3 % (39.0-53.0) Mean Corpuscular Volume 112 fL (79-100) Mean Corpuscular Hemoglobin 36 pg (25-35) Mean Corpuscular Hemoglobin Concent 32 g/dL (31-37) Red Cell Distribution Width 15.0 % (11.5-14.5) Platelet Count 373 x10^3/uL (140-400) Neutrophils (%) (Auto) 63 % (31-73) Lymphocytes (%) (Auto) 29 % (24-48) Monocytes (%) (Auto) 6 % (0-9) Eosinophils (%) (Auto) 1 % (0-3) Basophils (%) (Auto) 1 % (0-3) Neutrophils # (Auto) 19.3 x10^3uL (1.8-7.7) Lymphocytes # (Auto) 8.8 x10^3/uL (1.0-4.8) Monocytes # (Auto) 1.8 x10^3/uL (0.0-1.1) Eosinophils # (Auto) 0.4 x10^3/uL (0.0-0.7) Basophils # (Auto) 0.2 x10^3/uL (0.0-0.2) Segmented Neutrophils % 45 % (35-66) Band Neutrophils % 7 % (0-9) Lymphocytes % 35 % (24-48) Monocytes % 5 % (0-10) Eosinophils % 1 % (0-5) Metamyelocytes % 4 % (0-0) Myelocytes % 3 % (0-0) Platelet Estimate Adequate (ADEQUATE) Large Platelets Few Polychromasia Slight Macrocytosis Slight Prothrombin Time 15.0 SEC (11.7-14.0) Prothromb Time International Ratio 1.2 (0.8-1.1) Hemoglobin A1c 9.1 % (4.8-5.6) Lactic Acid Level 30.1 mmol/L (0.4-2.0) Troponin I Quantitative < 0.017 ng/mL (0.000-0.055) Ethyl Alcohol Level < 10 mg/dL (0-10) Glucose (Fingerstick) 249 mg/dL (70-99) Urine Collection Type Unknown Urine Color Yellow Urine Clarity Clear Urine pH 7.0 Urine Specific [place] 1.010 Urine Protein Negative mg/dL (NEG-TRACE) Urine Glucose (UA) 500 mg/dL (NEG) Urine Ketones (Stick) Negative mg/dL (NEG) Urine Blood Small (NEG) Urine Nitrite Negative (NEG) Urine Bilirubin Negative (NEG) Urine Urobilinogen Dipstick 0.2 mg/dL (0.2 mg/dL) Urine Leukocyte Esterase Negative (NEG) Urine RBC Occ /HPF (0-2) Urine WBC 0 /HPF (0-4) Urine Squamous Epithelial Cells Occ /LPF Urine Bacteria 0 /HPF (0-FEW) Urine Opiates Screen Neg (NEG) Urine Methadone Screen Neg (NEG) Urine Barbiturates Neg (NEG) Urine Phencyclidine Screen Neg (NEG) Urine Amphetamine/Methamphetamine Neg (NEG) Urine Benzodiazepines Screen Neg (NEG) Urine Cocaine Screen Neg (NEG) Urine Cannabinoids Screen Neg (NEG) Urine Ethyl Alcohol Neg (NEG) Sodium Level 132 mmol/L (136-145) Potassium Level 5.5 mmol/L (3.5-5.1) Chloride Level 94 mmol/L (98-107) Carbon Dioxide Level 15 mmol/L (21-32) Anion Gap 23 (6-14) Blood Urea Nitrogen 30 mg/dL (8-26) Creatinine 2.4 mg/dL (0.7-1.3) Estimated GFR (Cockcroft-Gault) 28.1 BUN/Creatinine Ratio 13 (6-20) Glucose Level 265 mg/dL (70-99) Calcium Level 9.7 mg/dL (8.5-10.1) Magnesium Level 4.9 mg/dL (1.8-2.4) Total Bilirubin 0.3 mg/dL (0.2-1.0) Aspartate Amino Transf (AST/SGOT) 33 U/L (15-37) Alanine Aminotransferase (ALT/SGPT) 71 U/L (16-63) Alkaline Phosphatase 89 U/L (46-116) Creatine Kinase 872 U/L (39-308) Creatine Kinase MB (Mass) 5.4 ng/mL (0.0-3.6) Creatine Kinase MB Relative Index 0.6 % (0-4) KX-[id number]-M-Type Natriuretic Peptide 44 pg/mL (0-124) Total Protein 6.6 g/dL (6.4-8.2) Albumin 3.2 g/dL (3.4-5.0) Albumin/Globulin Ratio 0.9 (1.0-1.7) Lipase 279 U/L (73-393) Test 07/03/18 18:30 07/03/18 19:47 07/03/18 22:20 07/04/18 04:05 Lactic Acid Level 2.6 mmol/L (0.4-2.0) 1.7 mmol/L (0.4-2.0) Troponin I Quantitative 0.246 ng/mL (0.000-0.055) 0.307 ng/mL (0.000-0.055) Glucose (Fingerstick) 336 mg/dL (70-99) Sodium Level 132 mmol/L (136-145) Potassium Level 4.2 mmol/L (3.5-5.1) Chloride Level 96 mmol/L (98-107) Carbon Dioxide Level 22 mmol/L (21-32) Anion Gap 14 (6-14) Blood Urea Nitrogen 26 mg/dL (8-26) Creatinine 1.7 mg/dL (0.7-1.3) Estimated GFR (Cockcroft-Gault) 41.9 Glucose Level 366 mg/dL (70-99) Calcium Level 8.1 mg/dL (8.5-10.1) Test 07/04/18 04:15 07/04/18 07:14 White Blood Count 14.5 x10^3/uL (4.0-11.0) Red Blood Count 4.59 x10^6/uL (4.30-5.70) Hemoglobin 16.2 g/dL (13.0-17.5) Hematocrit 46.6 % (39.0-53.0) Mean Corpuscular Volume 102 fL (79-100) Mean Corpuscular Hemoglobin 35 pg (25-35) Mean Corpuscular Hemoglobin Concent 35 g/dL (31-37) Red Cell Distribution Width 13.5 % (11.5-14.5) Platelet Count 285 x10^3/uL (140-400) Neutrophils (%) (Auto) 84 % (31-73) Lymphocytes (%) (Auto) 8 % (24-48) Monocytes (%) (Auto) 7 % (0-9) Eosinophils (%) (Auto) 0 % (0-3) Basophils (%) (Auto) 0 % (0-3) Neutrophils # (Auto) 12.2 x10^3uL (1.8-7.7) Lymphocytes # (Auto) 1.2 x10^3/uL (1.0-4.8) Monocytes # (Auto) 1.1 x10^3/uL (0.0-1.1) Eosinophils # (Auto) 0.0 x10^3/uL (0.0-0.7) Basophils # (Auto) 0.0 x10^3/uL (0.0-0.2) Sodium Level 134 mmol/L (136-145) Potassium Level 4.4 mmol/L (3.5-5.1) Chloride Level 97 mmol/L (98-107) Carbon Dioxide Level 24 mmol/L (21-32) Anion Gap 13 (6-14) Blood Urea Nitrogen 21 mg/dL (8-26) Creatinine 1.5 mg/dL (0.7-1.3) Estimated GFR (Cockcroft-Gault) 48.4 Glucose Level 248 mg/dL (70-99) Calcium Level 7.9 mg/dL (8.5-10.1) Magnesium Level 2.8 mg/dL (1.8-2.4) Creatine Kinase 60240 U/L (39-308) Triglycerides Level 82 mg/dL (0-150) Cholesterol Level 104 mg/dL (0-200) LDL Cholesterol, Calculated 33 mg/dL (0-100) VLDL Cholesterol, Calculated 16 mg/dL (0-40) Non-HDL Cholesterol Calculated 49 mg/dL (0-129) HDL Cholesterol 55 mg/dL (40-60) Cholesterol/HDL Ratio 1.9 Thyroid Stimulating Hormone (TSH) 1.498 uIU/mL (0.358-3.74) Glucose (Fingerstick) 286 mg/dL (70-99) Laboratory Tests Test 07/03/18 13:55 07/03/18 14:04 07/03/18 14:30 07/03/18 14:51 White Blood Count 30.5 x10^3/uL (4.0-11.0) Red Blood Count 4.92 x10^6/uL (4.30-5.70) Hemoglobin 17.5 g/dL (13.0-17.5) Hematocrit 55.3 % (39.0-53.0) Mean Corpuscular Volume 112 fL (79-100) Mean Corpuscular Hemoglobin 36 pg (25-35) Mean Corpuscular Hemoglobin Concent 32 g/dL (31-37) Red Cell Distribution Width 15.0 % (11.5-14.5) Platelet Count 373 x10^3/uL (140-400) Neutrophils (%) (Auto) 63 % (31-73) Lymphocytes (%) (Auto) 29 % (24-48) Monocytes (%) (Auto) 6 % (0-9) Eosinophils (%) (Auto) 1 % (0-3) Basophils (%) (Auto) 1 % (0-3) Neutrophils # (Auto) 19.3 x10^3uL (1.8-7.7) Lymphocytes # (Auto) 8.8 x10^3/uL (1.0-4.8) Monocytes # (Auto) 1.8 x10^3/uL (0.0-1.1) Eosinophils # (Auto) 0.4 x10^3/uL (0.0-0.7) Basophils # (Auto) 0.2 x10^3/uL (0.0-0.2) Segmented Neutrophils % 45 % (35-66) Band Neutrophils % 7 % (0-9) Lymphocytes % 35 % (24-48) Monocytes % 5 % (0-10) Eosinophils % 1 % (0-5) Metamyelocytes % 4 % (0-0) Myelocytes % 3 % (0-0) Platelet Estimate Adequate (ADEQUATE) Large Platelets Few Polychromasia Slight Macrocytosis Slight Prothrombin Time 15.0 SEC (11.7-14.0) Prothromb Time International Ratio 1.2 (0.8-1.1) Hemoglobin A1c 9.1 % (4.8-5.6) Lactic Acid Level 30.1 mmol/L (0.4-2.0) Troponin I Quantitative < 0.017 ng/mL (0.000-0.055) Ethyl Alcohol Level < 10 mg/dL (0-10) Glucose (Fingerstick) 249 mg/dL (70-99) Urine Collection Type Unknown Urine Color Yellow Urine Clarity Clear Urine pH 7.0 Urine Specific [place] 1.010 Urine Protein Negative mg/dL (NEG-TRACE) Urine Glucose (UA) 500 mg/dL (NEG) Urine Ketones (Stick) Negative mg/dL (NEG) Urine Blood Small (NEG) Urine Nitrite Negative (NEG) Urine Bilirubin Negative (NEG) Urine Urobilinogen Dipstick 0.2 mg/dL (0.2 mg/dL) Urine Leukocyte Esterase Negative (NEG) Urine RBC Occ /HPF (0-2) Urine WBC 0 /HPF (0-4) Urine Squamous Epithelial Cells Occ /LPF Urine Bacteria 0 /HPF (0-FEW) Urine Opiates Screen Neg (NEG) Urine Methadone Screen Neg (NEG) Urine Barbiturates Neg (NEG) Urine Phencyclidine Screen Neg (NEG) Urine Amphetamine/Methamphetamine Neg (NEG) Urine Benzodiazepines Screen Neg (NEG) Urine Cocaine Screen Neg (NEG) Urine Cannabinoids Screen Neg (NEG) Urine Ethyl Alcohol Neg (NEG) Sodium Level 132 mmol/L (136-145) Potassium Level 5.5 mmol/L (3.5-5.1) Chloride Level 94 mmol/L (98-107) Carbon Dioxide Level 15 mmol/L (21-32) Anion Gap 23 (6-14) Blood Urea Nitrogen 30 mg/dL (8-26) Creatinine 2.4 mg/dL (0.7-1.3) Estimated GFR (Cockcroft-Gault) 28.1 BUN/Creatinine Ratio 13 (6-20) Glucose Level 265 mg/dL (70-99) Calcium Level 9.7 mg/dL (8.5-10.1) Magnesium Level 4.9 mg/dL (1.8-2.4) Total Bilirubin 0.3 mg/dL (0.2-1.0) Aspartate Amino Transf (AST/SGOT) 33 U/L (15-37) Alanine Aminotransferase (ALT/SGPT) 71 U/L (16-63) Alkaline Phosphatase 89 U/L (46-116) Creatine Kinase 872 U/L (39-308) Creatine Kinase MB (Mass) 5.4 ng/mL (0.0-3.6) Creatine Kinase MB Relative Index 0.6 % (0-4) EO-Ajn-V-Type Natriuretic Peptide 44 pg/mL (0-124) Total Protein 6.6 g/dL (6.4-8.2) Albumin 3.2 g/dL (3.4-5.0) Albumin/Globulin Ratio 0.9 (1.0-1.7) Lipase 279 U/L (73-393) Test 07/03/18 18:30 07/03/18 19:47 07/03/18 22:20 07/04/18 04:05 Lactic Acid Level 2.6 mmol/L (0.4-2.0) 1.7 mmol/L (0.4-2.0) Troponin I Quantitative 0.246 ng/mL (0.000-0.055) 0.307 ng/mL (0.000-0.055) Glucose (Fingerstick) 336 mg/dL (70-99) Sodium Level 132 mmol/L (136-145) Potassium Level 4.2 mmol/L (3.5-5.1) Chloride Level 96 mmol/L (98-107) Carbon Dioxide Level 22 mmol/L (21-32) Anion Gap 14 (6-14) Blood Urea Nitrogen 26 mg/dL (8-26) Creatinine 1.7 mg/dL (0.7-1.3) Estimated GFR (Cockcroft-Gault) 41.9 Glucose Level 366 mg/dL (70-99) Calcium Level 8.1 mg/dL (8.5-10.1) Test 07/04/18 04:15 07/04/18 07:14 White Blood Count 14.5 x10^3/uL (4.0-11.0) Red Blood Count 4.59 x10^6/uL (4.30-5.70) Hemoglobin 16.2 g/dL (13.0-17.5) Hematocrit 46.6 % (39.0-53.0) Mean Corpuscular Volume 102 fL (79-100) Mean Corpuscular Hemoglobin 35 pg (25-35) Mean Corpuscular Hemoglobin Concent 35 g/dL (31-37) Red Cell Distribution Width 13.5 % (11.5-14.5) Platelet Count 285 x10^3/uL (140-400) Neutrophils (%) (Auto) 84 % (31-73) Lymphocytes (%) (Auto) 8 % (24-48) Monocytes (%) (Auto) 7 % (0-9) Eosinophils (%) (Auto) 0 % (0-3) Basophils (%) (Auto) 0 % (0-3) Neutrophils # (Auto) 12.2 x10^3uL (1.8-7.7) Lymphocytes # (Auto) 1.2 x10^3/uL (1.0-4.8) Monocytes # (Auto) 1.1 x10^3/uL (0.0-1.1) Eosinophils # (Auto) 0.0 x10^3/uL (0.0-0.7) Basophils # (Auto) 0.0 x10^3/uL (0.0-0.2) Sodium Level 134 mmol/L (136-145) Potassium Level 4.4 mmol/L (3.5-5.1) Chloride Level 97 mmol/L (98-107) Carbon Dioxide Level 24 mmol/L (21-32) Anion Gap 13 (6-14) Blood Urea Nitrogen 21 mg/dL (8-26) Creatinine 1.5 mg/dL (0.7-1.3) Estimated GFR (Cockcroft-Gault) 48.4 Glucose Level 248 mg/dL (70-99) Calcium Level 7.9 mg/dL (8.5-10.1) Magnesium Level 2.8 mg/dL (1.8-2.4) Creatine Kinase 61650 U/L (39-308) Triglycerides Level 82 mg/dL (0-150) Cholesterol Level 104 mg/dL (0-200) LDL Cholesterol, Calculated 33 mg/dL (0-100) VLDL Cholesterol, Calculated 16 mg/dL (0-40) Non-HDL Cholesterol Calculated 49 mg/dL (0-129) HDL Cholesterol 55 mg/dL (40-60) Cholesterol/HDL Ratio 1.9 Thyroid Stimulating Hormone (TSH) 1.498 uIU/mL (0.358-3.74) Glucose (Fingerstick) 286 mg/dL (70-99) Review All relevant outside records, renal labs, imaging studies, telemetry/EKG's were reviewed. Images Images Renal US-- The study is limited to some degree due to the patient's large body habitus and inability to cooperate with the fish technologist with patient positioning. Both kidneys are within normal limits in size. The right kidney measures 13.0 cm in length. The left kidney measures 11.6 cm in length. A 2.3 cm cyst is seen involving the medial aspect of the right kidney. No focal abnormality of the left kidney is seen. There is no evidence of hydronephrosis. The urinary bladder is distended with urine. No abnormality is seen. IMPRESSION: Negative study. JOSELO RAHMAN MD Jul 04, 2018 09:35
--- NOTE | 2018-07-04 09:45 | PDOC ---
Infectious Disease Note Vital Sign Vital Signs Vital Signs Date Time Temp Pulse Resp B/P (MAP) Pulse Ox O2 Delivery O2 Flow Rate FiO2 07/04/18 08:00 Room Air 07/04/18 07:00 97.9 104 20 160/98 (118) 94 97.9 Labs Lab Laboratory Tests Test 07/03/18 13:55 07/03/18 14:04 07/03/18 14:30 07/03/18 14:51 White Blood Count 30.5 x10^3/uL (4.0-11.0) Red Blood Count 4.92 x10^6/uL (4.30-5.70) Hemoglobin 17.5 g/dL (13.0-17.5) Hematocrit 55.3 % (39.0-53.0) Mean Corpuscular Volume 112 fL (79-100) Mean Corpuscular Hemoglobin 36 pg (25-35) Mean Corpuscular Hemoglobin Concent 32 g/dL (31-37) Red Cell Distribution Width 15.0 % (11.5-14.5) Platelet Count 373 x10^3/uL (140-400) Neutrophils (%) (Auto) 63 % (31-73) Lymphocytes (%) (Auto) 29 % (24-48) Monocytes (%) (Auto) 6 % (0-9) Eosinophils (%) (Auto) 1 % (0-3) Basophils (%) (Auto) 1 % (0-3) Neutrophils # (Auto) 19.3 x10^3uL (1.8-7.7) Lymphocytes # (Auto) 8.8 x10^3/uL (1.0-4.8) Monocytes # (Auto) 1.8 x10^3/uL (0.0-1.1) Eosinophils # (Auto) 0.4 x10^3/uL (0.0-0.7) Basophils # (Auto) 0.2 x10^3/uL (0.0-0.2) Segmented Neutrophils % 45 % (35-66) Band Neutrophils % 7 % (0-9) Lymphocytes % 35 % (24-48) Monocytes % 5 % (0-10) Eosinophils % 1 % (0-5) Metamyelocytes % 4 % (0-0) Myelocytes % 3 % (0-0) Platelet Estimate Adequate (ADEQUATE) Large Platelets Few Polychromasia Slight Macrocytosis Slight Prothrombin Time 15.0 SEC (11.7-14.0) Prothromb Time International Ratio 1.2 (0.8-1.1) Hemoglobin A1c 9.1 % (4.8-5.6) Lactic Acid Level 30.1 mmol/L (0.4-2.0) Troponin I Quantitative < 0.017 ng/mL (0.000-0.055) Ethyl Alcohol Level < 10 mg/dL (0-10) Glucose (Fingerstick) 249 mg/dL (70-99) Urine Collection Type Unknown Urine Color Yellow Urine Clarity Clear Urine pH 7.0 Urine Specific [place] 1.010 Urine Protein Negative mg/dL (NEG-TRACE) Urine Glucose (UA) 500 mg/dL (NEG) Urine Ketones (Stick) Negative mg/dL (NEG) Urine Blood Small (NEG) Urine Nitrite Negative (NEG) Urine Bilirubin Negative (NEG) Urine Urobilinogen Dipstick 0.2 mg/dL (0.2 mg/dL) Urine Leukocyte Esterase Negative (NEG) Urine RBC Occ /HPF (0-2) Urine WBC 0 /HPF (0-4) Urine Squamous Epithelial Cells Occ /LPF Urine Bacteria 0 /HPF (0-FEW) Urine Opiates Screen Neg (NEG) Urine Methadone Screen Neg (NEG) Urine Barbiturates Neg (NEG) Urine Phencyclidine Screen Neg (NEG) Urine Amphetamine/Methamphetamine Neg (NEG) Urine Benzodiazepines Screen Neg (NEG) Urine Cocaine Screen Neg (NEG) Urine Cannabinoids Screen Neg (NEG) Urine Ethyl Alcohol Neg (NEG) Sodium Level 132 mmol/L (136-145) Potassium Level 5.5 mmol/L (3.5-5.1) Chloride Level 94 mmol/L (98-107) Carbon Dioxide Level 15 mmol/L (21-32) Anion Gap 23 (6-14) Blood Urea Nitrogen 30 mg/dL (8-26) Creatinine 2.4 mg/dL (0.7-1.3) Estimated GFR (Cockcroft-Gault) 28.1 BUN/Creatinine Ratio 13 (6-20) Glucose Level 265 mg/dL (70-99) Calcium Level 9.7 mg/dL (8.5-10.1) Magnesium Level 4.9 mg/dL (1.8-2.4) Total Bilirubin 0.3 mg/dL (0.2-1.0) Aspartate Amino Transf (AST/SGOT) 33 U/L (15-37) Alanine Aminotransferase (ALT/SGPT) 71 U/L (16-63) Alkaline Phosphatase 89 U/L (46-116) Creatine Kinase 872 U/L (39-308) Creatine Kinase MB (Mass) 5.4 ng/mL (0.0-3.6) Creatine Kinase MB Relative Index 0.6 % (0-4) QZ-Fds-Q-Type Natriuretic Peptide 44 pg/mL (0-124) Total Protein 6.6 g/dL (6.4-8.2) Albumin 3.2 g/dL (3.4-5.0) Albumin/Globulin Ratio 0.9 (1.0-1.7) Lipase 279 U/L (73-393) Test 07/03/18 18:30 07/03/18 19:47 07/03/18 22:20 07/04/18 04:05 Lactic Acid Level 2.6 mmol/L (0.4-2.0) 1.7 mmol/L (0.4-2.0) Troponin I Quantitative 0.246 ng/mL (0.000-0.055) 0.307 ng/mL (0.000-0.055) Glucose (Fingerstick) 336 mg/dL (70-99) Sodium Level 132 mmol/L (136-145) Potassium Level 4.2 mmol/L (3.5-5.1) Chloride Level 96 mmol/L (98-107) Carbon Dioxide Level 22 mmol/L (21-32) Anion Gap 14 (6-14) Blood Urea Nitrogen 26 mg/dL (8-26) Creatinine 1.7 mg/dL (0.7-1.3) Estimated GFR (Cockcroft-Gault) 41.9 Glucose Level 366 mg/dL (70-99) Calcium Level 8.1 mg/dL (8.5-10.1) Test 07/04/18 04:15 07/04/18 07:14 White Blood Count 14.5 x10^3/uL (4.0-11.0) Red Blood Count 4.59 x10^6/uL (4.30-5.70) Hemoglobin 16.2 g/dL (13.0-17.5) Hematocrit 46.6 % (39.0-53.0) Mean Corpuscular Volume 102 fL (79-100) Mean Corpuscular Hemoglobin 35 pg (25-35) Mean Corpuscular Hemoglobin Concent 35 g/dL (31-37) Red Cell Distribution Width 13.5 % (11.5-14.5) Platelet Count 285 x10^3/uL (140-400) Neutrophils (%) (Auto) 84 % (31-73) Lymphocytes (%) (Auto) 8 % (24-48) Monocytes (%) (Auto) 7 % (0-9) Eosinophils (%) (Auto) 0 % (0-3) Basophils (%) (Auto) 0 % (0-3) Neutrophils # (Auto) 12.2 x10^3uL (1.8-7.7) Lymphocytes # (Auto) 1.2 x10^3/uL (1.0-4.8) Monocytes # (Auto) 1.1 x10^3/uL (0.0-1.1) Eosinophils # (Auto) 0.0 x10^3/uL (0.0-0.7) Basophils # (Auto) 0.0 x10^3/uL (0.0-0.2) Sodium Level 134 mmol/L (136-145) Potassium Level 4.4 mmol/L (3.5-5.1) Chloride Level 97 mmol/L (98-107) Carbon Dioxide Level 24 mmol/L (21-32) Anion Gap 13 (6-14) Blood Urea Nitrogen 21 mg/dL (8-26) Creatinine 1.5 mg/dL (0.7-1.3) Estimated GFR (Cockcroft-Gault) 48.4 Glucose Level 248 mg/dL (70-99) Calcium Level 7.9 mg/dL (8.5-10.1) Magnesium Level 2.8 mg/dL (1.8-2.4) Creatine Kinase 37148 U/L (39-308) Triglycerides Level 82 mg/dL (0-150) Cholesterol Level 104 mg/dL (0-200) LDL Cholesterol, Calculated 33 mg/dL (0-100) VLDL Cholesterol, Calculated 16 mg/dL (0-40) Non-HDL Cholesterol Calculated 49 mg/dL (0-129) HDL Cholesterol 55 mg/dL (40-60) Cholesterol/HDL Ratio 1.9 Thyroid Stimulating Hormone (TSH) 1.498 uIU/mL (0.358-3.74) Glucose (Fingerstick) 286 mg/dL (70-99) Objective Assessment Lactic acidosis likely sec to seizure S/P Fall Elevated CPK sec to # 1 Dehydration with TARYN improving Encephalopathy Plan Plan of Care d/c antibiotics fluids supportive care may need Neurology consult ORTIZ CHOU MD Jul 04, 2018 09:45
[2018-07-04] MEDS ORDERED: LISINOPRIL 10 MG TABLET PO SCH (10:00)
[2018-07-04] MEDS ORDERED: amLODIPine BESYLATE 10 MG TABLET PO SCH (10:15)
--- NOTE | 2018-07-04 10:16 | PDOC2 ---
CARDIAC CONSULT DATE OF CONSULT Date of Consult DATE: 07/04/18 TIME: 09:44 REASON FOR CONSULT Reason for Consult: Elevated troponin REFERRING PHYSICIAN Referring Physician: Chloe SOURCE Source: Chart review, Patient HISTORY OF PRESENT ILLNESS HISTORY OF PRESENT ILLNESS This is a 58 yo male admitted for complains of fall. Pt is slightly irritable currently and short with his answers not wanting provide further details of what transpired. He reports that he was walking in the stress and fell and just got weak. Denies losing his consciousness or getting dizzy. He said he was on the ground for about 30 minutes but this was questionable and it was hot yesterday during the day according to him. Denies any seizures, nor hx of CAD, VTE, arrhythmias, CKD. Consult is for elevated troponin which at this time is multifactorial and no symptoms of chest pain, jaw pain, SOA, palpitations, frequent falls. Could not tell me of any fever and no details verbalized leading up to this event. Denies diarrhea or vomiting. He has been taking geodon for about 10 yrs now. He takes metformin, lipitor and lisinopril. PAST MEDICAL HISTORY Cardiovascular: HTN, Hyperlipidemia Pulmonary: No pertinent hx CENTRAL NERVOUS SYSTEM: Other (No pertinent history) GI: No pertinent hx Heme/Onc: No pertinent hx Hepatobiliary: No pertinent hx Psych: Bipolar Musculoskeletal: Osteoarthritis Rheumatologic: No pertinent hx Infectious disease: No pertinent hx ENT: No pertinent hx Renal/: No pertinent hx Endocrine: Diabetes (2) Dermatology: No pertinent hx PAST SURGICAL HISTORY Past Surgical History: No pertinent history FAMILY HISTORY Family History noncontributory to CV SOCIAL HISTORY Smoke: Quit ALCOHOL: none Drugs: None Lives: Alone CURRENT MEDICATIONS CURRENT MEDICATIONS Current Medications Medications (Trade) Dose Ordered Sig/Natasha Route PRN Reason Start Time Stop Time Status Last Admin Dose Admin Sodium Chloride 1,000 ml @ 1,000 mls/hr 1X ONCE IV 07/03/18 14:15 07/03/18 15:14 DC 07/03/18 14:15 Sodium Chloride 1,000 ml @ 1,000 mls/hr 1X ONCE IV 07/03/18 15:15 07/03/18 16:14 DC 07/03/18 15:15 Sodium Chloride 1,000 ml @ 1,000 mls/hr 1X ONCE IV 07/03/18 16:00 07/03/18 16:59 DC 07/03/18 16:00 Sodium Chloride 1,000 ml @ 125 mls/hr Q8H IV 07/03/18 17:00 07/04/18 03:01 Morphine Sulfate (Morphine Sulfate) 2 mg PRN Q2HR PRN IV MODERATE TO SEVERE PAIN 07/03/18 17:00 07/04/18 00:46 Tramadol HCl (Ultram) 50 mg PRN Q6HRS PRN PO MILD TO MODERATE PAIN 07/03/18 17:00 07/04/18 03:01 Linezolid/Dextrose 300 ml @ 300 mls/hr Q12HR IV 07/04/18 09:00 07/04/18 08:06 Insulin Human Lispro (HumaLOG) 0-9 UNITS TIDWMEALS SQ 07/03/18 18:15 07/04/18 08:17 Linezolid/Dextrose 300 ml @ 300 mls/hr 1X ONCE IV 07/03/18 18:00 07/03/18 18:59 DC 07/03/18 21:12 Piperacillin Sod/ Tazobactam Sod 4.5 gm/Sodium Chloride 100 ml @ 200 mls/hr Q6HRS IV 07/04/18 00:00 07/04/18 05:29 ALLERGIES ALLERGIES: Coded Allergies: No Known Drug Allergies (Unverified , 07/03/18) ROS Review of System 14 point ROS evaluated with pertinent positives noted per HPI PHYSICAL EXAM General: Alert, Oriented X3, Cooperative, No acute distress HEENT: Atraumatic, Mucous membr. moist/pink Lungs: Other (diminished bases) Heart: Regular rate (sinus tach), Other (2/6 systolic murmur to LLS border) Abdomen: Soft, Other (obese) Extremities: No cyanosis, Other (trace caroline le) Skin: Other (knee abrasion) Neuro: Normal speech, Sensation intact Psych/Mental Status: Mental status NL, Other (slighltly irritable) MUSCULOSKELETAL: Osteoarthritic changes both hands, Other (generalized myalgia) VITALS VITALS Vital Signs Date Time Temp Pulse Resp B/P (MAP) Pulse Ox O2 Delivery O2 Flow Rate FiO2 07/04/18 08:00 Room Air 07/04/18 07:00 97.9 104 20 160/98 (118) 94 97.9 LABS Lab: Laboratory Tests Test 07/03/18 13:55 07/03/18 14:04 10/2/18 14:30 07/03/18 14:51 White Blood Count 30.5 x10^3/uL (4.0-11.0) Red Blood Count 4.92 x10^6/uL (4.30-5.70) Hemoglobin 17.5 g/dL (13.0-17.5) Hematocrit 55.3 % (39.0-53.0) Mean Corpuscular Volume 112 fL (79-100) Mean Corpuscular Hemoglobin 36 pg (25-35) Mean Corpuscular Hemoglobin Concent 32 g/dL (31-37) Red Cell Distribution Width 15.0 % (11.5-14.5) Platelet Count 373 x10^3/uL (140-400) Neutrophils (%) (Auto) 63 % (31-73) Lymphocytes (%) (Auto) 29 % (24-48) Monocytes (%) (Auto) 6 % (0-9) Eosinophils (%) (Auto) 1 % (0-3) Basophils (%) (Auto) 1 % (0-3) Neutrophils # (Auto) 19.3 x10^3uL (1.8-7.7) Lymphocytes # (Auto) 8.8 x10^3/uL (1.0-4.8) Monocytes # (Auto) 1.8 x10^3/uL (0.0-1.1) Eosinophils # (Auto) 0.4 x10^3/uL (0.0-0.7) Basophils # (Auto) 0.2 x10^3/uL (0.0-0.2) Segmented Neutrophils % 45 % (35-66) Band Neutrophils % 7 % (0-9) Lymphocytes % 35 % (24-48) Monocytes % 5 % (0-10) Eosinophils % 1 % (0-5) Metamyelocytes % 4 % (0-0) Myelocytes % 3 % (0-0) Platelet Estimate Adequate (ADEQUATE) Large Platelets Few Polychromasia Slight Macrocytosis Slight Prothrombin Time 15.0 SEC (11.7-14.0) Prothromb Time International Ratio 1.2 (0.8-1.1) Hemoglobin A1c 9.1 % (4.8-5.6) Lactic Acid Level 30.1 mmol/L (0.4-2.0) Troponin I Quantitative < 0.017 ng/mL (0.000-0.055) Ethyl Alcohol Level < 10 mg/dL (0-10) Glucose (Fingerstick) 249 mg/dL (70-99) Urine Collection Type Unknown Urine Color Yellow Urine Clarity Clear Urine pH 7.0 Urine Specific [place] 1.010 Urine Protein Negative mg/dL (NEG-TRACE) Urine Glucose (UA) 500 mg/dL (NEG) Urine Ketones (Stick) Negative mg/dL (NEG) Urine Blood Small (NEG) Urine Nitrite Negative (NEG) Urine Bilirubin Negative (NEG) Urine Urobilinogen Dipstick 0.2 mg/dL (0.2 mg/dL) Urine Leukocyte Esterase Negative (NEG) Urine RBC Occ /HPF (0-2) Urine WBC 0 /HPF (0-4) Urine Squamous Epithelial Cells Occ /LPF Urine Bacteria 0 /HPF (0-FEW) Urine Opiates Screen Neg (NEG) Urine Methadone Screen Neg (NEG) Urine Barbiturates Neg (NEG) Urine Phencyclidine Screen Neg (NEG) Urine Amphetamine/Methamphetamine Neg (NEG) Urine Benzodiazepines Screen Neg (NEG) Urine Cocaine Screen Neg (NEG) Urine Cannabinoids Screen Neg (NEG) Urine Ethyl Alcohol Neg (NEG) Sodium Level 132 mmol/L (136-145) Potassium Level 5.5 mmol/L (3.5-5.1) Chloride Level 94 mmol/L (98-107) Carbon Dioxide Level 15 mmol/L (21-32) Anion Gap 23 (6-14) Blood Urea Nitrogen 30 mg/dL (8-26) Creatinine 2.4 mg/dL (0.7-1.3) Estimated GFR (Cockcroft-Gault) 28.1 BUN/Creatinine Ratio 13 (6-20) Glucose Level 265 mg/dL (70-99) Calcium Level 9.7 mg/dL (8.5-10.1) Magnesium Level 4.9 mg/dL (1.8-2.4) Total Bilirubin 0.3 mg/dL (0.2-1.0) Aspartate Amino Transf (AST/SGOT) 33 U/L (15-37) Alanine Aminotransferase (ALT/SGPT) 71 U/L (16-63) Alkaline Phosphatase 89 U/L (46-116) Creatine Kinase 872 U/L (39-308) Creatine Kinase MB (Mass) 5.4 ng/mL (0.0-3.6) Creatine Kinase MB Relative Index 0.6 % (0-4) KT-Wck-R-Type Natriuretic Peptide 44 pg/mL (0-124) Total Protein 6.6 g/dL (6.4-8.2) Albumin 3.2 g/dL (3.4-5.0) Albumin/Globulin Ratio 0.9 (1.0-1.7) Lipase 279 U/L (73-393) Test 07/03/18 18:30 07/03/18 19:47 07/03/18 22:20 07/04/18 04:05 Lactic Acid Level 2.6 mmol/L (0.4-2.0) 1.7 mmol/L (0.4-2.0) Troponin I Quantitative 0.246 ng/mL (0.000-0.055) 0.307 ng/mL (0.000-0.055) Glucose (Fingerstick) 336 mg/dL (70-99) Sodium Level 132 mmol/L (136-145) Potassium Level 4.2 mmol/L (3.5-5.1) Chloride Level 96 mmol/L (98-107) Carbon Dioxide Level 22 mmol/L (21-32) Anion Gap 14 (6-14) Blood Urea Nitrogen 26 mg/dL (8-26) Creatinine 1.7 mg/dL (0.7-1.3) Estimated GFR (Cockcroft-Gault) 41.9 Glucose Level 366 mg/dL (70-99) Calcium Level 8.1 mg/dL (8.5-10.1) Test 07/04/18 04:15 07/04/18 07:14 White Blood Count 14.5 x10^3/uL (4.0-11.0) Red Blood Count 4.59 x10^6/uL (4.30-5.70) Hemoglobin 16.2 g/dL (13.0-17.5) Hematocrit 46.6 % (39.0-53.0) Mean Corpuscular Volume 102 fL (79-100) Mean Corpuscular Hemoglobin 35 pg (25-35) Mean Corpuscular Hemoglobin Concent 35 g/dL (31-37) Red Cell Distribution Width 13.5 % (11.5-14.5) Platelet Count 285 x10^3/uL (140-400) Neutrophils (%) (Auto) 84 % (31-73) Lymphocytes (%) (Auto) 8 % (24-48) Monocytes (%) (Auto) 7 % (0-9) Eosinophils (%) (Auto) 0 % (0-3) Basophils (%) (Auto) 0 % (0-3) Neutrophils # (Auto) 12.2 x10^3uL (1.8-7.7) Lymphocytes # (Auto) 1.2 x10^3/uL (1.0-4.8) Monocytes # (Auto) 1.1 x10^3/uL (0.0-1.1) Eosinophils # (Auto) 0.0 x10^3/uL (0.0-0.7) Basophils # (Auto) 0.0 x10^3/uL (0.0-0.2) Sodium Level 134 mmol/L (136-145) Potassium Level 4.4 mmol/L (3.5-5.1) Chloride Level 97 mmol/L (98-107) Carbon Dioxide Level 24 mmol/L (21-32) Anion Gap 13 (6-14) Blood Urea Nitrogen 21 mg/dL (8-26) Creatinine 1.5 mg/dL (0.7-1.3) Estimated GFR (Cockcroft-Gault) 48.4 Glucose Level 248 mg/dL (70-99) Calcium Level 7.9 mg/dL (8.5-10.1) Magnesium Level 2.8 mg/dL (1.8-2.4) Creatine Kinase 22425 U/L (39-308) Triglycerides Level 82 mg/dL (0-150) Cholesterol Level 104 mg/dL (0-200) LDL Cholesterol, Calculated 33 mg/dL (0-100) VLDL Cholesterol, Calculated 16 mg/dL (0-40) Non-HDL Cholesterol Calculated 49 mg/dL (0-129) HDL Cholesterol 55 mg/dL (40-60) Cholesterol/HDL Ratio 1.9 Thyroid Stimulating Hormone (TSH) 1.498 uIU/mL (0.358-3.74) Glucose (Fingerstick) 286 mg/dL (70-99) ASSESSMENT/PLAN ASSESSMENT/PLAN 1. Metabolic encephalopathy 2. Mechanical Fall: No signitn trauma. possible presyncopal component but denies. Unclear duration of being on the floor. 3. NSTEMI: Peaked trop 0.3. EKG Sinus tach without significant changes. Suspect type 2, demand mediated with multifactorial contributor as noted below 4. Severe Rhabdomyolysis/myalgia 5. TARYN with significant dehydration and severe lactic acidosis: improved. 6. Macrocytosis: possible ETOH use but denies 7. DM2/HLP: on metformin and lipitor 8. HTN: on lisinopril. Controlled 9. 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 Hx of Bipolar disorder: on geodon. 11. Obesity Recommendations 1. Hold statin, lisinopril, metformin. Recommend holding geodon, defer to PCP 2. IV hydration per nephrology 3. Norvasc x1. Labetolol IV PRN 4. TTE today. PARIS LEWIS APRN Jul 04, 2018 10:16
[2018-07-04] MEDS: ZIPRASIDONE 20 MG CAPSULE PO SCH ×2 (10:20→19:53)
[2018-07-04] MEDS: INSULIN GLARGINE 300 UNITS/3 ML INSULN.PEN. SQ SCH (10:26)
[2018-07-04 11:00] VITALS: BP 138/99
--- NOTE | 2018-07-04 11:04 | PDOC ---
PROGRESS NOTES Chief Complaint Chief Complaint AMS, metabolic encephalopathy fall, syncope possible sepsis hypotension resolved with iv bolus dehydration metabolic acidosis lactate acidosis TARYN, ATN, vs vasomotor hyperglycemia, dm2 htn, hld leukocytosis h/o mental issues mild malnutrition History of Present Illness History of Present Illness seizure likely from extent of CK elevation, discussed with ID and renal at length DC ssi, check hba1c need to verify home meds NS 125cc/h for now, 3L in ER, will repeat LA, BMP later repeat labs tmr dvt ppx PTOT ada DIET Vitals Vitals Vital Signs Date Time Temp Pulse Resp B/P (MAP) Pulse Ox O2 Delivery O2 Flow Rate FiO2 07/04/18 10:22 104 160/98 07/04/18 08:00 Room Air 07/04/18 07:00 97.9 20 94 97.9 Physical Exam General: Alert, Oriented X3, Cooperative, No acute distress Heart: Regular rate (sinus tach), Other (2/6 systolic murmur to LLS border) Lungs: Clear, Crackles Abdomen: Soft, Other (obese) Extremities: No cyanosis, Other (trace caroline le) Skin: Other (knee abrasion) Labs LABS Laboratory Tests Test 07/03/18 13:55 07/03/18 14:04 07/03/18 14:30 07/03/18 14:51 White Blood Count 30.5 x10^3/uL (4.0-11.0) Red Blood Count 4.92 x10^6/uL (4.30-5.70) Hemoglobin 17.5 g/dL (13.0-17.5) Hematocrit 55.3 % (39.0-53.0) Mean Corpuscular Volume 112 fL (79-100) Mean Corpuscular Hemoglobin 36 pg (25-35) Mean Corpuscular Hemoglobin Concent 32 g/dL (31-37) Red Cell Distribution Width 15.0 % (11.5-14.5) Platelet Count 373 x10^3/uL (140-400) Neutrophils (%) (Auto) 63 % (31-73) Lymphocytes (%) (Auto) 29 % (24-48) Monocytes (%) (Auto) 6 % (0-9) Eosinophils (%) (Auto) 1 % (0-3) Basophils (%) (Auto) 1 % (0-3) Neutrophils # (Auto) 19.3 x10^3uL (1.8-7.7) Lymphocytes # (Auto) 8.8 x10^3/uL (1.0-4.8) Monocytes # (Auto) 1.8 x10^3/uL (0.0-1.1) Eosinophils # (Auto) 0.4 x10^3/uL (0.0-0.7) Basophils # (Auto) 0.2 x10^3/uL (0.0-0.2) Segmented Neutrophils % 45 % (35-66) Band Neutrophils % 7 % (0-9) Lymphocytes % 35 % (24-48) Monocytes % 5 % (0-10) Eosinophils % 1 % (0-5) Metamyelocytes % 4 % (0-0) Myelocytes % 3 % (0-0) Platelet Estimate Adequate (ADEQUATE) Large Platelets Few Polychromasia Slight Macrocytosis Slight Prothrombin Time 15.0 SEC (11.7-14.0) Prothromb Time International Ratio 1.2 (0.8-1.1) Hemoglobin A1c 9.1 % (4.8-5.6) Lactic Acid Level 30.1 mmol/L (0.4-2.0) Troponin I Quantitative < 0.017 ng/mL (0.000-0.055) Ethyl Alcohol Level < 10 mg/dL (0-10) Glucose (Fingerstick) 249 mg/dL (70-99) Urine Collection Type Unknown Urine Color Yellow Urine Clarity Clear Urine pH 7.0 Urine Specific [place] 1.010 Urine Protein Negative mg/dL (NEG-TRACE) Urine Glucose (UA) 500 mg/dL (NEG) Urine Ketones (Stick) Negative mg/dL (NEG) Urine Blood Small (NEG) Urine Nitrite Negative (NEG) Urine Bilirubin Negative (NEG) Urine Urobilinogen Dipstick 0.2 mg/dL (0.2 mg/dL) Urine Leukocyte Esterase Negative (NEG) Urine RBC Occ /HPF (0-2) Urine WBC 0 /HPF (0-4) Urine Squamous Epithelial Cells Occ /LPF Urine Bacteria 0 /HPF (0-FEW) Urine Opiates Screen Neg (NEG) Urine Methadone Screen Neg (NEG) Urine Barbiturates Neg (NEG) Urine Phencyclidine Screen Neg (NEG) Urine Amphetamine/Methamphetamine Neg (NEG) Urine Benzodiazepines Screen Neg (NEG) Urine Cocaine Screen Neg (NEG) Urine Cannabinoids Screen Neg (NEG) Urine Ethyl Alcohol Neg (NEG) Sodium Level 132 mmol/L (136-145) Potassium Level 5.5 mmol/L (3.5-5.1) Chloride Level 94 mmol/L (98-107) Carbon Dioxide Level 15 mmol/L (21-32) Anion Gap 23 (6-14) Blood Urea Nitrogen 30 mg/dL (8-26) Creatinine 2.4 mg/dL (0.7-1.3) Estimated GFR (Cockcroft-Gault) 28.1 BUN/Creatinine Ratio 13 (6-20) Glucose Level 265 mg/dL (70-99) Calcium Level 9.7 mg/dL (8.5-10.1) Magnesium Level 4.9 mg/dL (1.8-2.4) Total Bilirubin 0.3 mg/dL (0.2-1.0) Aspartate Amino Transf (AST/SGOT) 33 U/L (15-37) Alanine Aminotransferase (ALT/SGPT) 71 U/L (16-63) Alkaline Phosphatase 89 U/L (46-116) Creatine Kinase 872 U/L (39-308) Creatine Kinase MB (Mass) 5.4 ng/mL (0.0-3.6) Creatine Kinase MB Relative Index 0.6 % (0-4) ZB-Usr-Z-Type Natriuretic Peptide 44 pg/mL (0-124) Total Protein 6.6 g/dL (6.4-8.2) Albumin 3.2 g/dL (3.4-5.0) Albumin/Globulin Ratio 0.9 (1.0-1.7) Lipase 279 U/L (73-393) Test 07/03/18 18:30 07/03/18 19:47 07/03/18 22:20 07/04/18 04:05 Lactic Acid Level 2.6 mmol/L (0.4-2.0) 1.7 mmol/L (0.4-2.0) Troponin I Quantitative 0.246 ng/mL (0.000-0.055) 0.307 ng/mL (0.000-0.055) Glucose (Fingerstick) 336 mg/dL (70-99) Sodium Level 132 mmol/L (136-145) Potassium Level 4.2 mmol/L (3.5-5.1) Chloride Level 96 mmol/L (98-107) Carbon Dioxide Level 22 mmol/L (21-32) Anion Gap 14 (6-14) Blood Urea Nitrogen 26 mg/dL (8-26) Creatinine 1.7 mg/dL (0.7-1.3) Estimated GFR (Cockcroft-Gault) 41.9 Glucose Level 366 mg/dL (70-99) Calcium Level 8.1 mg/dL (8.5-10.1) Test 07/04/18 04:15 07/04/18 07:14 White Blood Count 14.5 x10^3/uL (4.0-11.0) Red Blood Count 4.59 x10^6/uL (4.30-5.70) Hemoglobin 16.2 g/dL (13.0-17.5) Hematocrit 46.6 % (39.0-53.0) Mean Corpuscular Volume 102 fL (79-100) Mean Corpuscular Hemoglobin 35 pg (25-35) Mean Corpuscular Hemoglobin Concent 35 g/dL (31-37) Red Cell Distribution Width 13.5 % (11.5-14.5) Platelet Count 285 x10^3/uL (140-400) Neutrophils (%) (Auto) 84 % (31-73) Lymphocytes (%) (Auto) 8 % (24-48) Monocytes (%) (Auto) 7 % (0-9) Eosinophils (%) (Auto) 0 % (0-3) Basophils (%) (Auto) 0 % (0-3) Neutrophils # (Auto) 12.2 x10^3uL (1.8-7.7) Lymphocytes # (Auto) 1.2 x10^3/uL (1.0-4.8) Monocytes # (Auto) 1.1 x10^3/uL (0.0-1.1) Eosinophils # (Auto) 0.0 x10^3/uL (0.0-0.7) Basophils # (Auto) 0.0 x10^3/uL (0.0-0.2) Sodium Level 134 mmol/L (136-145) Potassium Level 4.4 mmol/L (3.5-5.1) Chloride Level 97 mmol/L (98-107) Carbon Dioxide Level 24 mmol/L (21-32) Anion Gap 13 (6-14) Blood Urea Nitrogen 21 mg/dL (8-26) Creatinine 1.5 mg/dL (0.7-1.3) Estimated GFR (Cockcroft-Gault) 48.4 Glucose Level 248 mg/dL (70-99) Calcium Level 7.9 mg/dL (8.5-10.1) Magnesium Level 2.8 mg/dL (1.8-2.4) Creatine Kinase 70461 U/L (39-308) Triglycerides Level 82 mg/dL (0-150) Cholesterol Level 104 mg/dL (0-200) LDL Cholesterol, Calculated 33 mg/dL (0-100) VLDL Cholesterol, Calculated 16 mg/dL (0-40) Non-HDL Cholesterol Calculated 49 mg/dL (0-129) HDL Cholesterol 55 mg/dL (40-60) Cholesterol/HDL Ratio 1.9 Thyroid Stimulating Hormone (TSH) 1.498 uIU/mL (0.358-3.74) Glucose (Fingerstick) 286 mg/dL (70-99) Review of Systems Review of Systems no n.v/d Assessment and Plan Assessmemt and Plan Problems Medical Problems: (1) Altered mental state Status: Acute (2) Hypotension Status: Acute (3) Lactic acidosis Status: Acute (4) Left knee pain Status: Acute (5) Left shoulder pain Status: Acute (6) Leukocytosis Status: Acute (7) Multiple abrasions Status: Acute (8) Renal insufficiency Status: Acute Comment Review of Relevant I have reviewed the following items murray (where applicable) has been applied. Labs Laboratory Tests Test 07/03/18 13:55 07/03/18 14:04 07/03/18 14:30 07/03/18 14:51 White Blood Count 30.5 x10^3/uL (4.0-11.0) Red Blood Count 4.92 x10^6/uL (4.30-5.70) Hemoglobin 17.5 g/dL (13.0-17.5) Hematocrit 55.3 % (39.0-53.0) Mean Corpuscular Volume 112 fL (79-100) Mean Corpuscular Hemoglobin 36 pg (25-35) Mean Corpuscular Hemoglobin Concent 32 g/dL (31-37) Red Cell Distribution Width 15.0 % (11.5-14.5) Platelet Count 373 x10^3/uL (140-400) Neutrophils (%) (Auto) 63 % (31-73) Lymphocytes (%) (Auto) 29 % (24-48) Monocytes (%) (Auto) 6 % (0-9) Eosinophils (%) (Auto) 1 % (0-3) Basophils (%) (Auto) 1 % (0-3) Neutrophils # (Auto) 19.3 x10^3uL (1.8-7.7) Lymphocytes # (Auto) 8.8 x10^3/uL (1.0-4.8) Monocytes # (Auto) 1.8 x10^3/uL (0.0-1.1) Eosinophils # (Auto) 0.4 x10^3/uL (0.0-0.7) Basophils # (Auto) 0.2 x10^3/uL (0.0-0.2) Segmented Neutrophils % 45 % (35-66) Band Neutrophils % 7 % (0-9) Lymphocytes % 35 % (24-48) Monocytes % 5 % (0-10) Eosinophils % 1 % (0-5) Metamyelocytes % 4 % (0-0) Myelocytes % 3 % (0-0) Platelet Estimate Adequate (ADEQUATE) Large Platelets Few Polychromasia Slight Macrocytosis Slight Prothrombin Time 15.0 SEC (11.7-14.0) Prothromb Time International Ratio 1.2 (0.8-1.1) Hemoglobin A1c 9.1 % (4.8-5.6) Lactic Acid Level 30.1 mmol/L (0.4-2.0) Troponin I Quantitative < 0.017 ng/mL (0.000-0.055) Ethyl Alcohol Level < 10 mg/dL (0-10) Glucose (Fingerstick) 249 mg/dL (70-99) Urine Collection Type Unknown Urine Color Yellow Urine Clarity Clear Urine pH 7.0 Urine Specific [place] 1.010 Urine Protein Negative mg/dL (NEG-TRACE) Urine Glucose (UA) 500 mg/dL (NEG) Urine Ketones (Stick) Negative mg/dL (NEG) Urine Blood Small (NEG) Urine Nitrite Negative (NEG) Urine Bilirubin Negative (NEG) Urine Urobilinogen Dipstick 0.2 mg/dL (0.2 mg/dL) Urine Leukocyte Esterase Negative (NEG) Urine RBC Occ /HPF (0-2) Urine WBC 0 /HPF (0-4) Urine Squamous Epithelial Cells Occ /LPF Urine Bacteria 0 /HPF (0-FEW) Urine Opiates Screen Neg (NEG) Urine Methadone Screen Neg (NEG) Urine Barbiturates Neg (NEG) Urine Phencyclidine Screen Neg (NEG) Urine Amphetamine/Methamphetamine Neg (NEG) Urine Benzodiazepines Screen Neg (NEG) Urine Cocaine Screen Neg (NEG) Urine Cannabinoids Screen Neg (NEG) Urine Ethyl Alcohol Neg (NEG) Sodium Level 132 mmol/L (136-145) Potassium Level 5.5 mmol/L (3.5-5.1) Chloride Level 94 mmol/L (98-107) Carbon Dioxide Level 15 mmol/L (21-32) Anion Gap 23 (6-14) Blood Urea Nitrogen 30 mg/dL (8-26) Creatinine 2.4 mg/dL (0.7-1.3) Estimated GFR (Cockcroft-Gault) 28.1 BUN/Creatinine Ratio 13 (6-20) Glucose Level 265 mg/dL (70-99) Calcium Level 9.7 mg/dL (8.5-10.1) Magnesium Level 4.9 mg/dL (1.8-2.4) Total Bilirubin 0.3 mg/dL (0.2-1.0) Aspartate Amino Transf (AST/SGOT) 33 U/L (15-37) Alanine Aminotransferase (ALT/SGPT) 71 U/L (16-63) Alkaline Phosphatase 89 U/L (46-116) Creatine Kinase 872 U/L (39-308) Creatine Kinase MB (Mass) 5.4 ng/mL (0.0-3.6) Creatine Kinase MB Relative Index 0.6 % (0-4) VC-Pso-O-Type Natriuretic Peptide 44 pg/mL (0-124) Total Protein 6.6 g/dL (6.4-8.2) Albumin 3.2 g/dL (3.4-5.0) Albumin/Globulin Ratio 0.9 (1.0-1.7) Lipase 279 U/L (73-393) Test 07/03/18 18:30 07/03/18 19:47 07/03/18 22:20 07/04/18 04:05 Lactic Acid Level 2.6 mmol/L (0.4-2.0) 1.7 mmol/L (0.4-2.0) Troponin I Quantitative 0.246 ng/mL (0.000-0.055) 0.307 ng/mL (0.000-0.055) Glucose (Fingerstick) 336 mg/dL (70-99) Sodium Level 132 mmol/L (136-145) Potassium Level 4.2 mmol/L (3.5-5.1) Chloride Level 96 mmol/L (98-107) Carbon Dioxide Level 22 mmol/L (21-32) Anion Gap 14 (6-14) Blood Urea Nitrogen 26 mg/dL (8-26) Creatinine 1.7 mg/dL (0.7-1.3) Estimated GFR (Cockcroft-Gault) 41.9 Glucose Level 366 mg/dL (70-99) Calcium Level 8.1 mg/dL (8.5-10.1) Test 07/04/18 04:15 07/04/18 07:14 White Blood Count 14.5 x10^3/uL (4.0-11.0) Red Blood Count 4.59 x10^6/uL (4.30-5.70) Hemoglobin 16.2 g/dL (13.0-17.5) Hematocrit 46.6 % (39.0-53.0) Mean Corpuscular Volume 102 fL (79-100) Mean Corpuscular Hemoglobin 35 pg (25-35) Mean Corpuscular Hemoglobin Concent 35 g/dL (31-37) Red Cell Distribution Width 13.5 % (11.5-14.5) Platelet Count 285 x10^3/uL (140-400) Neutrophils (%) (Auto) 84 % (31-73) Lymphocytes (%) (Auto) 8 % (24-48) Monocytes (%) (Auto) 7 % (0-9) Eosinophils (%) (Auto) 0 % (0-3) Basophils (%) (Auto) 0 % (0-3) Neutrophils # (Auto) 12.2 x10^3uL (1.8-7.7) Lymphocytes # (Auto) 1.2 x10^3/uL (1.0-4.8) Monocytes # (Auto) 1.1 x10^3/uL (0.0-1.1) Eosinophils # (Auto) 0.0 x10^3/uL (0.0-0.7) Basophils # (Auto) 0.0 x10^3/uL (0.0-0.2) Sodium Level 134 mmol/L (136-145) Potassium Level 4.4 mmol/L (3.5-5.1) Chloride Level 97 mmol/L (98-107) Carbon Dioxide Level 24 mmol/L (21-32) Anion Gap 13 (6-14) Blood Urea Nitrogen 21 mg/dL (8-26) Creatinine 1.5 mg/dL (0.7-1.3) Estimated GFR (Cockcroft-Gault) 48.4 Glucose Level 248 mg/dL (70-99) Calcium Level 7.9 mg/dL (8.5-10.1) Magnesium Level 2.8 mg/dL (1.8-2.4) Creatine Kinase 20768 U/L (39-308) Triglycerides Level 82 mg/dL (0-150) Cholesterol Level 104 mg/dL (0-200) LDL Cholesterol, Calculated 33 mg/dL (0-100) VLDL Cholesterol, Calculated 16 mg/dL (0-40) Non-HDL Cholesterol Calculated 49 mg/dL (0-129) HDL Cholesterol 55 mg/dL (40-60) Cholesterol/HDL Ratio 1.9 Thyroid Stimulating Hormone (TSH) 1.498 uIU/mL (0.358-3.74) Glucose (Fingerstick) 286 mg/dL (70-99) Laboratory Tests Test 07/03/18 13:55 07/03/18 14:04 07/03/18 14:30 07/03/18 14:51 White Blood Count 30.5 x10^3/uL (4.0-11.0) Red Blood Count 4.92 x10^6/uL (4.30-5.70) Hemoglobin 17.5 g/dL (13.0-17.5) Hematocrit 55.3 % (39.0-53.0) Mean Corpuscular Volume 112 fL (79-100) Mean Corpuscular Hemoglobin 36 pg (25-35) Mean Corpuscular Hemoglobin Concent 32 g/dL (31-37) Red Cell Distribution Width 15.0 % (11.5-14.5) Platelet Count 373 x10^3/uL (140-400) Neutrophils (%) (Auto) 63 % (31-73) Lymphocytes (%) (Auto) 29 % (24-48) Monocytes (%) (Auto) 6 % (0-9) Eosinophils (%) (Auto) 1 % (0-3) Basophils (%) (Auto) 1 % (0-3) Neutrophils # (Auto) 19.3 x10^3uL (1.8-7.7) Lymphocytes # (Auto) 8.8 x10^3/uL (1.0-4.8) Monocytes # (Auto) 1.8 x10^3/uL (0.0-1.1) Eosinophils # (Auto) 0.4 x10^3/uL (0.0-0.7) Basophils # (Auto) 0.2 x10^3/uL (0.0-0.2) Segmented Neutrophils % 45 % (35-66) Band Neutrophils % 7 % (0-9) Lymphocytes % 35 % (24-48) Monocytes % 5 % (0-10) Eosinophils % 1 % (0-5) Metamyelocytes % 4 % (0-0) Myelocytes % 3 % (0-0) Platelet Estimate Adequate (ADEQUATE) Large Platelets Few Polychromasia Slight Macrocytosis Slight Prothrombin Time 15.0 SEC (11.7-14.0) Prothromb Time International Ratio 1.2 (0.8-1.1) Hemoglobin A1c 9.1 % (4.8-5.6) Lactic Acid Level 30.1 mmol/L (0.4-2.0) Troponin I Quantitative < 0.017 ng/mL (0.000-0.055) Ethyl Alcohol Level < 10 mg/dL (0-10) Glucose (Fingerstick) 249 mg/dL (70-99) Urine Collection Type Unknown Urine Color Yellow Urine Clarity Clear Urine pH 7.0 Urine Specific [place] 1.010 Urine Protein Negative mg/dL (NEG-TRACE) Urine Glucose (UA) 500 mg/dL (NEG) Urine Ketones (Stick) Negative mg/dL (NEG) Urine Blood Small (NEG) Urine Nitrite Negative (NEG) Urine Bilirubin Negative (NEG) Urine Urobilinogen Dipstick 0.2 mg/dL (0.2 mg/dL) Urine Leukocyte Esterase Negative (NEG) Urine RBC Occ /HPF (0-2) Urine WBC 0 /HPF (0-4) Urine Squamous Epithelial Cells Occ /LPF Urine Bacteria 0 /HPF (0-FEW) Urine Opiates Screen Neg (NEG) Urine Methadone Screen Neg (NEG) Urine Barbiturates Neg (NEG) Urine Phencyclidine Screen Neg (NEG) Urine Amphetamine/Methamphetamine Neg (NEG) Urine Benzodiazepines Screen Neg (NEG) Urine Cocaine Screen Neg (NEG) Urine Cannabinoids Screen Neg (NEG) Urine Ethyl Alcohol Neg (NEG) Sodium Level 132 mmol/L (136-145) Potassium Level 5.5 mmol/L (3.5-5.1) Chloride Level 94 mmol/L (98-107) Carbon Dioxide Level 15 mmol/L (21-32) Anion Gap 23 (6-14) Blood Urea Nitrogen 30 mg/dL (8-26) Creatinine 2.4 mg/dL (0.7-1.3) Estimated GFR (Cockcroft-Gault) 28.1 BUN/Creatinine Ratio 13 (6-20) Glucose Level 265 mg/dL (70-99) Calcium Level 9.7 mg/dL (8.5-10.1) Magnesium Level 4.9 mg/dL (1.8-2.4) Total Bilirubin 0.3 mg/dL (0.2-1.0) Aspartate Amino Transf (AST/SGOT) 33 U/L (15-37) Alanine Aminotransferase (ALT/SGPT) 71 U/L (16-63) Alkaline Phosphatase 89 U/L (46-116) Creatine Kinase 872 U/L (39-308) Creatine Kinase MB (Mass) 5.4 ng/mL (0.0-3.6) Creatine Kinase MB Relative Index 0.6 % (0-4) HS-Iwz-X-Type Natriuretic Peptide 44 pg/mL (0-124) Total Protein 6.6 g/dL (6.4-8.2) Albumin 3.2 g/dL (3.4-5.0) Albumin/Globulin Ratio 0.9 (1.0-1.7) Lipase 279 U/L (73-393) Test 07/03/18 18:30 07/03/18 19:47 07/03/18 22:20 07/04/18 04:05 Lactic Acid Level 2.6 mmol/L (0.4-2.0) 1.7 mmol/L (0.4-2.0) Troponin I Quantitative 0.246 ng/mL (0.000-0.055) 0.307 ng/mL (0.000-0.055) Glucose (Fingerstick) 336 mg/dL (70-99) Sodium Level 132 mmol/L (136-145) Potassium Level 4.2 mmol/L (3.5-5.1) Chloride Level 96 mmol/L (98-107) Carbon Dioxide Level 22 mmol/L (21-32) Anion Gap 14 (6-14) Blood Urea Nitrogen 26 mg/dL (8-26) Creatinine 1.7 mg/dL (0.7-1.3) Estimated GFR (Cockcroft-Gault) 41.9 Glucose Level 366 mg/dL (70-99) Calcium Level 8.1 mg/dL (8.5-10.1) Test 07/04/18 04:15 07/04/18 07:14 White Blood Count 14.5 x10^3/uL (4.0-11.0) Red Blood Count 4.59 x10^6/uL (4.30-5.70) Hemoglobin 16.2 g/dL (13.0-17.5) Hematocrit 46.6 % (39.0-53.0) Mean Corpuscular Volume 102 fL (79-100) Mean Corpuscular Hemoglobin 35 pg (25-35) Mean Corpuscular Hemoglobin Concent 35 g/dL (31-37) Red Cell Distribution Width 13.5 % (11.5-14.5) Platelet Count 285 x10^3/uL (140-400) Neutrophils (%) (Auto) 84 % (31-73) Lymphocytes (%) (Auto) 8 % (24-48) Monocytes (%) (Auto) 7 % (0-9) Eosinophils (%) (Auto) 0 % (0-3) Basophils (%) (Auto) 0 % (0-3) Neutrophils # (Auto) 12.2 x10^3uL (1.8-7.7) Lymphocytes # (Auto) 1.2 x10^3/uL (1.0-4.8) Monocytes # (Auto) 1.1 x10^3/uL (0.0-1.1) Eosinophils # (Auto) 0.0 x10^3/uL (0.0-0.7) Basophils # (Auto) 0.0 x10^3/uL (0.0-0.2) Sodium Level 134 mmol/L (136-145) Potassium Level 4.4 mmol/L (3.5-5.1) Chloride Level 97 mmol/L (98-107) Carbon Dioxide Level 24 mmol/L (21-32) Anion Gap 13 (6-14) Blood Urea Nitrogen 21 mg/dL (8-26) Creatinine 1.5 mg/dL (0.7-1.3) Estimated GFR (Cockcroft-Gault) 48.4 Glucose Level 248 mg/dL (70-99) Calcium Level 7.9 mg/dL (8.5-10.1) Magnesium Level 2.8 mg/dL (1.8-2.4) Creatine Kinase 26190 U/L (39-308) Triglycerides Level 82 mg/dL (0-150) Cholesterol Level 104 mg/dL (0-200) LDL Cholesterol, Calculated 33 mg/dL (0-100) VLDL Cholesterol, Calculated 16 mg/dL (0-40) Non-HDL Cholesterol Calculated 49 mg/dL (0-129) HDL Cholesterol 55 mg/dL (40-60) Cholesterol/HDL Ratio 1.9 Thyroid Stimulating Hormone (TSH) 1.498 uIU/mL (0.358-3.74) Glucose (Fingerstick) 286 mg/dL (70-99) Medications Current Medications Sodium Chloride 1,000 ml @ 1,000 mls/hr 1X ONCE IV Last administered on at 14:15; Start 07/03/18 at 14:15; Stop 07/03/18 at 15:14; Status DC Neomycin/ Polymyxin/ Bacitracin (Triple Antibiotic Ointment) 1 pkt 1X ONCE TP ; Start 07/03/18 at 14:15; Stop 07/03/18 at 14:50; Status DC Sodium Chloride 1,000 ml @ 1,000 mls/hr 1X ONCE IV Last administered on at 15:15; Start 07/03/18 at 15:15; Stop 07/03/18 at 16:14; Status DC Sodium Chloride 1,000 ml @ 1,000 mls/hr 1X ONCE IV Last administered on at 16:00; Start 07/03/18 at 16:00; Stop 07/03/18 at 16:59; Status DC Piperacillin Sod/ Tazobactam Sod 4.5 gm/Sodium Chloride 100 ml @ 200 mls/hr 1X ONCE IV ; Start 07/03/18 at 16:30; Stop 07/03/18 at 16:59; Status DC Ondansetron HCl (Zofran) 4 mg PRN Q8HRS PRN IV NAUSEA/VOMITING; Start 07/03/18 at 16:30; Stop 07/03/18 at 17:09; Status DC Insulin Human Lispro (HumaLOG) 0-5 UNITS TIDWMEALS SQ ; Start 07/03/18 at 17:00 ; Stop 07/03/18 at 17:00; Status DC Dextrose (Dextrose 50%-Water Syringe) 12.5 gm PRN Q15MIN PRN IV SEE COMMENTS; Start 07/03/18 at 16:30; Stop 07/03/18 at 17:10; Status DC Sodium Chloride 1,000 ml @ 125 mls/hr Q8H IV Last administered on 07/04/18at 03 :01; Start 07/03/18 at 17:00 Acetaminophen (Tylenol) 650 mg PRN Q6HRS PRN PO FEVER; Start 07/03/18 at 17:00 Ondansetron HCl (Zofran) 4 mg PRN Q6HRS PRN IV NAUSEA/VOMITING; Start 07/03/18 at 17:00 Morphine Sulfate (Morphine Sulfate) 2 mg PRN Q2HR PRN IV MODERATE TO SEVERE PAIN Last administered on 07/04/18at 00:46; Start 07/03/18 at 17:00 Tramadol HCl (Ultram) 50 mg PRN Q6HRS PRN PO MILD TO MODERATE PAIN Last administered on 07/04/18at 03:01; Start 07/03/18 at 17:00 Docusate Sodium (Colace) 100 mg PRN DAILY PRN PO CONSTIPATION; Start 07/03/18 at 17:00 Piperacillin Sod/ Tazobactam Sod 3.375 gm/Sodium Chloride 50 ml @ 100 mls/hr Q6HRS IV ; Start 07/04/18 at 00:00; Status UNV Piperacillin Sod/ Tazobactam Sod (Zosyn Per Pharmacy) 1 each PRN DAILY PRN MC SEE COMMENTS; Start 07/03/18 at 17:00 Linezolid/Dextrose 300 ml @ 300 mls/hr Q12HR IV Last administered on at 08:06; Start 07/04/18 at 09:00; Stop 07/04/18 at 09:45; Status DC Heparin Sodium (Porcine) (Heparin Sq) 5,000 unit Q8HRS SQ ; Start 07/03/18 at 22 :00 Insulin Human Lispro (HumaLOG) 0-9 UNITS TIDWMEALS SQ Last administered on 07/04at 08:17; Start 07/03/18 at 18:15 Dextrose (Dextrose 50%-Water Syringe) 12.5 gm PRN Q15MIN PRN IV SEE COMMENTS; Start 07/03/18 at 17:00 Linezolid/Dextrose 300 ml @ 300 mls/hr 1X ONCE IV Last administered on at 21:12; Start 07/03/18 at 18:00; Stop 07/03/18 at 18:59; Status DC Piperacillin Sod/ Tazobactam Sod 4.5 gm/Sodium Chloride 100 ml @ 200 mls/hr Q6HRS IV Last administered on 07/04/18at 05:29; Start 07/04/18 at 00:00; Stop 07/04/18 at 09:45; Status DC Lisinopril (Prinivil) 10 mg DAILY PO ; Start 07/04/18 at 10:00; Stop 07/04/18 at 10:04; Status DC Ziprasidone (Geodon) 80 mg BID PO Last administered on 07/04/18at 10:20; Start 07/04/18 at 10:00 Insulin Glargine (Lantus) 15 units DAILY SQ Last administered on 07/04/18at 10: 26; Start 07/04/18 at 10:00 Amlodipine Besylate (Norvasc) 10 mg DAILY PO Last administered on 07/04/18at 10: 22; Start 07/04/18 at 10:15 Active Scripts Active Reported Lisinopril 10 Mg Tablet 1 Tab PO DAILY Metformin Hcl 1,000 Mg Tablet 1,000 Mg PO BIDWMEALS Geodon (Ziprasidone Hcl) 80 Mg Capsule 1 Cap PO BID Vitals/I & O Vital Sign - Last 24 Hours 07/03/18 07/03/18 07/03/18 07/03/18 13:46 14:00 14:30 15:00 Temp 97.6 97.6 Pulse 148 154 138 116 Resp 44 44 31 24 B/P (MAP) 85/46 (59) Pulse Ox 85 92 94 92 O2 Delivery Room Air 07/03/18 07/03/18 07/03/18 07/03/18 15:30 16:00 16:30 19:33 Temp 98.1 98.1 Pulse 106 108 108 103 Resp 18 24 24 20 B/P (MAP) 135/82 (99) Pulse Ox 99 97 94 94 O2 Delivery Room Air 07/03/18 07/03/18 07/03/18 07/04/18 19:34 20:27 22:34 00:46 Temp 98.1 99.1 98.1 99.1 Pulse 103 104 Resp 20 21 B/P (MAP) 135/82 (99) 131/84 (100) Pulse Ox 94 93 93 O2 Delivery Room Air Room Air Room Air Room Air 07/04/18 07/04/18 07/04/18 07/04/18 03:00 03:01 07:00 08:00 Temp 98.8 97.9 98.8 97.9 Pulse 95 104 Resp 20 20 B/P (MAP) 144/100 (115) 160/98 (118) Pulse Ox 99 94 O2 Delivery Room Air Room Air Room Air Room Air 07/04/18 10:22 Pulse 104 B/P (MAP) 160/98 Intake and Output 07/03/18 07/03/18 07/04/18 15:00 23:00 07:00 Intake Total 2100 ml Output Total 600 ml 1850 ml Balance 1500 ml -1850 ml KATHLEEN AU MD Jul 04, 2018 11:04
[2018-07-04] MEDS ORDERED: LABETALOL 20 MG/4 ML DISP.SYRIN. IVP PRN (11:45)
[2018-07-04] MEDS ORDERED: TAMSULOSIN 0.4 MG CAP.ER.24H. PO ONE (12:00)
--- NOTE | 2018-07-04 14:21 | PDOC2 ---
NEUROLOGY CONSULT Date of Admission Date of Admission DATE: 07/04/18 TIME: 14:14 Reason for Consult Reason for Consult: Possible seizure Referring Physician Referring Physician: Dr. Garcia Attending: Dr. Corona PCP: Dr. Cantu Source Source: Chart review, Patient History of Present Illness History of Present Illness The patient is a 58-year-old right-handed male who was out walking. It was hot out. He has been kicked out of his apartment. He fell and could not get up. He does not think he lost consciousness. He doesn't remember any time biting or incontinence. There is no history of stroke, seizure, or head injury. I am asked to see him mainly because he had a very high lactic acid level at admission which is now resolving, but his CPK level is still climbing. Thus, there is concern that he had a seizure. Past Medical History Cardiovascular: HTN, Hyperlipidemia Psych: Bipolar Endocrine: Diabetes Past Surgical History Past Surgical History: No pertinent history Family History Family History: Cancer, CAD Social History Social History Single, retired, no alcohol, tobacco, street drugs Current Medications Current Medications Current Medications Sodium Chloride 1,000 ml @ 1,000 mls/hr 1X ONCE IV Last administered on at 14:15; Start 07/03/18 at 14:15; Stop 07/03/18 at 15:14; Status DC Neomycin/ Polymyxin/ Bacitracin (Triple Antibiotic Ointment) 1 pkt 1X ONCE TP ; Start 07/03/18 at 14:15; Stop 07/03/18 at 14:50; Status DC Sodium Chloride 1,000 ml @ 1,000 mls/hr 1X ONCE IV Last administered on at 15:15; Start 07/03/18 at 15:15; Stop 07/03/18 at 16:14; Status DC Sodium Chloride 1,000 ml @ 1,000 mls/hr 1X ONCE IV Last administered on at 16:00; Start 07/03/18 at 16:00; Stop 07/03/18 at 16:59; Status DC Piperacillin Sod/ Tazobactam Sod 4.5 gm/Sodium Chloride 100 ml @ 200 mls/hr 1X ONCE IV ; Start 07/03/18 at 16:30; Stop 07/03/18 at 16:59; Status DC Ondansetron HCl (Zofran) 4 mg PRN Q8HRS PRN IV NAUSEA/VOMITING; Start 07/03/18 at 16:30; Stop 07/03/18 at 17:09; Status DC Insulin Human Lispro (HumaLOG) 0-5 UNITS TIDWMEALS SQ ; Start 07/03/18 at 17:00 ; Stop 07/03/18 at 17:00; Status DC Dextrose (Dextrose 50%-Water Syringe) 12.5 gm PRN Q15MIN PRN IV SEE COMMENTS; Start 07/03/18 at 16:30; Stop 07/03/18 at 17:10; Status DC Sodium Chloride 1,000 ml @ 125 mls/hr Q8H IV Last administered on 07/04/18at 03 :01; Start 07/03/18 at 17:00 Acetaminophen (Tylenol) 650 mg PRN Q6HRS PRN PO FEVER; Start 07/03/18 at 17:00 Ondansetron HCl (Zofran) 4 mg PRN Q6HRS PRN IV NAUSEA/VOMITING; Start 07/03/18 at 17:00 Morphine Sulfate (Morphine Sulfate) 2 mg PRN Q2HR PRN IV MODERATE TO SEVERE PAIN Last administered on 07/04/18at 00:46; Start 07/03/18 at 17:00 Tramadol HCl (Ultram) 50 mg PRN Q6HRS PRN PO MILD TO MODERATE PAIN Last administered on 07/04/18at 12:42; Start 07/03/18 at 17:00 Docusate Sodium (Colace) 100 mg PRN DAILY PRN PO CONSTIPATION; Start 07/03/18 at 17:00 Piperacillin Sod/ Tazobactam Sod 3.375 gm/Sodium Chloride 50 ml @ 100 mls/hr Q6HRS IV ; Start 07/04/18 at 00:00; Status UNV Piperacillin Sod/ Tazobactam Sod (Zosyn Per Pharmacy) 1 each PRN DAILY PRN MC SEE COMMENTS; Start 07/03/18 at 17:00 Linezolid/Dextrose 300 ml @ 300 mls/hr Q12HR IV Last administered on at 08:06; Start 07/04/18 at 09:00; Stop 07/04/18 at 09:45; Status DC Heparin Sodium (Porcine) (Heparin Sq) 5,000 unit Q8HRS SQ ; Start 07/03/18 at 22 :00 Insulin Human Lispro (HumaLOG) 0-9 UNITS TIDWMEALS SQ Last administered on 07/04at 12:53; Start 07/03/18 at 18:15 Dextrose (Dextrose 50%-Water Syringe) 12.5 gm PRN Q15MIN PRN IV SEE COMMENTS; Start 07/03/18 at 17:00 Linezolid/Dextrose 300 ml @ 300 mls/hr 1X ONCE IV Last administered on at 21:12; Start 07/03/18 at 18:00; Stop 07/03/18 at 18:59; Status DC Piperacillin Sod/ Tazobactam Sod 4.5 gm/Sodium Chloride 100 ml @ 200 mls/hr Q6HRS IV Last administered on 07/04/18at 05:29; Start 07/04/18 at 00:00; Stop 07/04/18 at 09:45; Status DC Lisinopril (Prinivil) 10 mg DAILY PO ; Start 07/04/18 at 10:00; Stop 07/04/18 at 10:04; Status DC Ziprasidone (Geodon) 80 mg BID PO Last administered on 07/04/18at 10:20; Start 07/04/18 at 10:00 Insulin Glargine (Lantus) 15 units DAILY SQ Last administered on 07/04/18at 10: 26; Start 07/04/18 at 10:00 Amlodipine Besylate (Norvasc) 10 mg DAILY PO Last administered on 07/04/18at 10: 22; Start 07/04/18 at 10:15 Tamsulosin HCl (Flomax) 0.4 mg QHS PO ; Start 07/05/18 at 21:00 Tamsulosin HCl (Flomax) 0.4 mg 1X ONCE PO Last administered on 07/04/18at 12:42 ; Start 07/04/18 at 12:00; Stop 07/04/18 at 12:01; Status DC Labetalol HCl (Normodyne Iv Push) 20 mg PRN Q2HR PRN IVP HYPERTENSION, SEE COMMENTS; Start 07/04/18 at 11:45 Active Scripts Active Reported Lisinopril 10 Mg Tablet 1 Tab PO DAILY Metformin Hcl 1,000 Mg Tablet 1,000 Mg PO BIDWMEALS Geodon (Ziprasidone Hcl) 80 Mg Capsule 1 Cap PO BID Allergies Allergies: Coded Allergies: No Known Drug Allergies (Unverified , 07/03/18) ROS Review of System Patient denies fevers, chills, weight loss, dyspnea, angina, abdominal pain, change in bowels, or dysuria. 14-point review of systems is negative. Physical Exam Physical Examination General: Well-developed, well-nourished, white male, in no acute distress HEENT: Normocephalic andatraumatic. No abrasions on the tongue. Temporal arteries pulsatile and nontender. Neck: Supple without bruit, no meningismus Musculoskeletal: Stability:see neurologic. Gait exam:see neurologic. Tone:see neurologic. Strength:see neurologic. Extremities: Several abrasions on the lower legs Neurological: Mental Status:intact, orientation, memory, attention span/concentration, language, fund of knowledge normal. Cranial Nerves:Pupils equal and reactive to light, extraocular movements areintact, visual johnson are full to confrontation. Facial sensation is normal. There is no facial asymmetry. Vestibulo-ocular reflex is intact. Palate elvates and tongue protrudes in midline. All other cranial related problems are negative except as mentioned before.Reflexes:1+ and symmetric with flexor plantar responses. Motor:5/5 strength with normal tone and bulk. Coordination:Finger-nose finger and heel-to -terry testing are normal. Rapid alternating movements and fine finger movements are intact. Gait:Not tested. Sensory:Normal pinprick, vibration, light touch, proprioception. Vitals VITALS Vital Signs Date Time Temp Pulse Resp B/P (MAP) Pulse Ox O2 Delivery O2 Flow Rate FiO2 07/04/18 13:43 Room Air 07/04/18 11:00 97.9 112 20 138/99 (112) 94 97.9 Labs Labs Laboratory Tests Test 07/03/18 13:55 07/03/18 14:04 07/03/18 14:30 07/03/18 14:51 White Blood Count 30.5 x10^3/uL (4.0-11.0) Red Blood Count 4.92 x10^6/uL (4.30-5.70) Hemoglobin 17.5 g/dL (13.0-17.5) Hematocrit 55.3 % (39.0-53.0) Mean Corpuscular Volume 112 fL (79-100) Mean Corpuscular Hemoglobin 36 pg (25-35) Mean Corpuscular Hemoglobin Concent 32 g/dL (31-37) Red Cell Distribution Width 15.0 % (11.5-14.5) Platelet Count 373 x10^3/uL (140-400) Neutrophils (%) (Auto) 63 % (31-73) Lymphocytes (%) (Auto) 29 % (24-48) Monocytes (%) (Auto) 6 % (0-9) Eosinophils (%) (Auto) 1 % (0-3) Basophils (%) (Auto) 1 % (0-3) Neutrophils # (Auto) 19.3 x10^3uL (1.8-7.7) Lymphocytes # (Auto) 8.8 x10^3/uL (1.0-4.8) Monocytes # (Auto) 1.8 x10^3/uL (0.0-1.1) Eosinophils # (Auto) 0.4 x10^3/uL (0.0-0.7) Basophils # (Auto) 0.2 x10^3/uL (0.0-0.2) Segmented Neutrophils % 45 % (35-66) Band Neutrophils % 7 % (0-9) Lymphocytes % 35 % (24-48) Monocytes % 5 % (0-10) Eosinophils % 1 % (0-5) Metamyelocytes % 4 % (0-0) Myelocytes % 3 % (0-0) Platelet Estimate Adequate (ADEQUATE) Large Platelets Few Polychromasia Slight Macrocytosis Slight Prothrombin Time 15.0 SEC (11.7-14.0) Prothromb Time International Ratio 1.2 (0.8-1.1) Hemoglobin A1c 9.1 % (4.8-5.6) Lactic Acid Level 30.1 mmol/L (0.4-2.0) Troponin I Quantitative < 0.017 ng/mL (0.000-0.055) Ethyl Alcohol Level < 10 mg/dL (0-10) Glucose (Fingerstick) 249 mg/dL (70-99) Urine Collection Type Unknown Urine Color Yellow Urine Clarity Clear Urine pH 7.0 Urine Specific Cody 1.010 Urine Protein Negative mg/dL (NEG-TRACE) Urine Glucose (UA) 500 mg/dL (NEG) Urine Ketones (Stick) Negative mg/dL (NEG) Urine Blood Small (NEG) Urine Nitrite Negative (NEG) Urine Bilirubin Negative (NEG) Urine Urobilinogen Dipstick 0.2 mg/dL (0.2 mg/dL) Urine Leukocyte Esterase Negative (NEG) Urine RBC Occ /HPF (0-2) Urine WBC 0 /HPF (0-4) Urine Squamous Epithelial Cells Occ /LPF Urine Bacteria 0 /HPF (0-FEW) Urine Opiates Screen Neg (NEG) Urine Methadone Screen Neg (NEG) Urine Barbiturates Neg (NEG) Urine Phencyclidine Screen Neg (NEG) Urine Amphetamine/Methamphetamine Neg (NEG) Urine Benzodiazepines Screen Neg (NEG) Urine Cocaine Screen Neg (NEG) Urine Cannabinoids Screen Neg (NEG) Urine Ethyl Alcohol Neg (NEG) Sodium Level 132 mmol/L (136-145) Potassium Level 5.5 mmol/L (3.5-5.1) Chloride Level 94 mmol/L (98-107) Carbon Dioxide Level 15 mmol/L (21-32) Anion Gap 23 (6-14) Blood Urea Nitrogen 30 mg/dL (8-26) Creatinine 2.4 mg/dL (0.7-1.3) Estimated GFR (Cockcroft-Gault) 28.1 BUN/Creatinine Ratio 13 (6-20) Glucose Level 265 mg/dL (70-99) Calcium Level 9.7 mg/dL (8.5-10.1) Magnesium Level 4.9 mg/dL (1.8-2.4) Total Bilirubin 0.3 mg/dL (0.2-1.0) Aspartate Amino Transf (AST/SGOT) 33 U/L (15-37) Alanine Aminotransferase (ALT/SGPT) 71 U/L (16-63) Alkaline Phosphatase 89 U/L (46-116) Creatine Kinase 872 U/L (39-308) Creatine Kinase MB (Mass) 5.4 ng/mL (0.0-3.6) Creatine Kinase MB Relative Index 0.6 % (0-4) VF-Rwe-O-Type Natriuretic Peptide 44 pg/mL (0-124) Total Protein 6.6 g/dL (6.4-8.2) Albumin 3.2 g/dL (3.4-5.0) Albumin/Globulin Ratio 0.9 (1.0-1.7) Lipase 279 U/L (73-393) Test 07/03/18 18:30 07/03/18 19:47 07/03/18 22:20 07/04/18 04:05 Lactic Acid Level 2.6 mmol/L (0.4-2.0) 1.7 mmol/L (0.4-2.0) Troponin I Quantitative 0.246 ng/mL (0.000-0.055) 0.307 ng/mL (0.000-0.055) Glucose (Fingerstick) 336 mg/dL (70-99) Sodium Level 132 mmol/L (136-145) Potassium Level 4.2 mmol/L (3.5-5.1) Chloride Level 96 mmol/L (98-107) Carbon Dioxide Level 22 mmol/L (21-32) Anion Gap 14 (6-14) Blood Urea Nitrogen 26 mg/dL (8-26) Creatinine 1.7 mg/dL (0.7-1.3) Estimated GFR (Cockcroft-Gault) 41.9 Glucose Level 366 mg/dL (70-99) Calcium Level 8.1 mg/dL (8.5-10.1) Test 07/04/18 04:15 07/04/18 07:14 07/04/18 10:44 White Blood Count 14.5 x10^3/uL (4.0-11.0) Red Blood Count 4.59 x10^6/uL (4.30-5.70) Hemoglobin 16.2 g/dL (13.0-17.5) Hematocrit 46.6 % (39.0-53.0) Mean Corpuscular Volume 102 fL (79-100) Mean Corpuscular Hemoglobin 35 pg (25-35) Mean Corpuscular Hemoglobin Concent 35 g/dL (31-37) Red Cell Distribution Width 13.5 % (11.5-14.5) Platelet Count 285 x10^3/uL (140-400) Neutrophils (%) (Auto) 84 % (31-73) Lymphocytes (%) (Auto) 8 % (24-48) Monocytes (%) (Auto) 7 % (0-9) Eosinophils (%) (Auto) 0 % (0-3) Basophils (%) (Auto) 0 % (0-3) Neutrophils # (Auto) 12.2 x10^3uL (1.8-7.7) Lymphocytes # (Auto) 1.2 x10^3/uL (1.0-4.8) Monocytes # (Auto) 1.1 x10^3/uL (0.0-1.1) Eosinophils # (Auto) 0.0 x10^3/uL (0.0-0.7) Basophils # (Auto) 0.0 x10^3/uL (0.0-0.2) Sodium Level 134 mmol/L (136-145) Potassium Level 4.4 mmol/L (3.5-5.1) Chloride Level 97 mmol/L (98-107) Carbon Dioxide Level 24 mmol/L (21-32) Anion Gap 13 (6-14) Blood Urea Nitrogen 21 mg/dL (8-26) Creatinine 1.5 mg/dL (0.7-1.3) Estimated GFR (Cockcroft-Gault) 48.4 Glucose Level 248 mg/dL (70-99) Calcium Level 7.9 mg/dL (8.5-10.1) Magnesium Level 2.8 mg/dL (1.8-2.4) Creatine Kinase 29455 U/L (39-308) Triglycerides Level 82 mg/dL (0-150) Cholesterol Level 104 mg/dL (0-200) LDL Cholesterol, Calculated 33 mg/dL (0-100) VLDL Cholesterol, Calculated 16 mg/dL (0-40) Non-HDL Cholesterol Calculated 49 mg/dL (0-129) HDL Cholesterol 55 mg/dL (40-60) Cholesterol/HDL Ratio 1.9 Thyroid Stimulating Hormone (TSH) 1.498 uIU/mL (0.358-3.74) Glucose (Fingerstick) 286 mg/dL (70-99) 263 mg/dL (70-99) Laboratory Tests Test 07/03/18 14:30 07/03/18 14:51 07/03/18 18:30 07/03/18 19:47 Urine Collection Type Unknown Urine Color Yellow Urine Clarity Clear Urine pH 7.0 Urine Specific Cody 1.010 Urine Protein Negative mg/dL (NEG-TRACE) Urine Glucose (UA) 500 mg/dL (NEG) Urine Ketones (Stick) Negative mg/dL (NEG) Urine Blood Small (NEG) Urine Nitrite Negative (NEG) Urine Bilirubin Negative (NEG) Urine Urobilinogen Dipstick 0.2 mg/dL (0.2 mg/dL) Urine Leukocyte Esterase Negative (NEG) Urine RBC Occ /HPF (0-2) Urine WBC 0 /HPF (0-4) Urine Squamous Epithelial Cells Occ /LPF Urine Bacteria 0 /HPF (0-FEW) Urine Opiates Screen Neg (NEG) Urine Methadone Screen Neg (NEG) Urine Barbiturates Neg (NEG) Urine Phencyclidine Screen Neg (NEG) Urine Amphetamine/Methamphetamine Neg (NEG) Urine Benzodiazepines Screen Neg (NEG) Urine Cocaine Screen Neg (NEG) Urine Cannabinoids Screen Neg (NEG) Urine Ethyl Alcohol Neg (NEG) Sodium Level 132 mmol/L (136-145) Potassium Level 5.5 mmol/L (3.5-5.1) Chloride Level 94 mmol/L (98-107) Carbon Dioxide Level 15 mmol/L (21-32) Anion Gap 23 (6-14) Blood Urea Nitrogen 30 mg/dL (8-26) Creatinine 2.4 mg/dL (0.7-1.3) Estimated GFR (Cockcroft-Gault) 28.1 BUN/Creatinine Ratio 13 (6-20) Glucose Level 265 mg/dL (70-99) Calcium Level 9.7 mg/dL (8.5-10.1) Magnesium Level 4.9 mg/dL (1.8-2.4) Total Bilirubin 0.3 mg/dL (0.2-1.0) Aspartate Amino Transf (AST/SGOT) 33 U/L (15-37) Alanine Aminotransferase (ALT/SGPT) 71 U/L (16-63) Alkaline Phosphatase 89 U/L (46-116) Creatine Kinase 872 U/L (39-308) Creatine Kinase MB (Mass) 5.4 ng/mL (0.0-3.6) Creatine Kinase MB Relative Index 0.6 % (0-4) NF-Bes-G-Type Natriuretic Peptide 44 pg/mL (0-124) Total Protein 6.6 g/dL (6.4-8.2) Albumin 3.2 g/dL (3.4-5.0) Albumin/Globulin Ratio 0.9 (1.0-1.7) Lipase 279 U/L (73-393) Lactic Acid Level 2.6 mmol/L (0.4-2.0) Troponin I Quantitative 0.246 ng/mL (0.000-0.055) Glucose (Fingerstick) 336 mg/dL (70-99) Test 07/03/18 22:20 07/04/18 04:05 07/04/18 04:15 07/04/18 07:14 Sodium Level 132 mmol/L (136-145) 134 mmol/L (136-145) Potassium Level 4.2 mmol/L (3.5-5.1) 4.4 mmol/L (3.5-5.1) Chloride Level 96 mmol/L (98-107) 97 mmol/L (98-107) Carbon Dioxide Level 22 mmol/L (21-32) 24 mmol/L (21-32) Anion Gap 14 (6-14) 13 (6-14) Blood Urea Nitrogen 26 mg/dL (8-26) 21 mg/dL (8-26) Creatinine 1.7 mg/dL (0.7-1.3) 1.5 mg/dL (0.7-1.3) Estimated GFR (Cockcroft-Gault) 41.9 48.4 Glucose Level 366 mg/dL (70-99) 248 mg/dL (70-99) Calcium Level 8.1 mg/dL (8.5-10.1) 7.9 mg/dL (8.5-10.1) Troponin I Quantitative 0.307 ng/mL (0.000-0.055) Lactic Acid Level 1.7 mmol/L (0.4-2.0) White Blood Count 14.5 x10^3/uL (4.0-11.0) Red Blood Count 4.59 x10^6/uL (4.30-5.70) Hemoglobin 16.2 g/dL (13.0-17.5) Hematocrit 46.6 % (39.0-53.0) Mean Corpuscular Volume 102 fL (79-100) Mean Corpuscular Hemoglobin 35 pg (25-35) Mean Corpuscular Hemoglobin Concent 35 g/dL (31-37) Red Cell Distribution Width 13.5 % (11.5-14.5) Platelet Count 285 x10^3/uL (140-400) Neutrophils (%) (Auto) 84 % (31-73) Lymphocytes (%) (Auto) 8 % (24-48) Monocytes (%) (Auto) 7 % (0-9) Eosinophils (%) (Auto) 0 % (0-3) Basophils (%) (Auto) 0 % (0-3) Neutrophils # (Auto) 12.2 x10^3uL (1.8-7.7) Lymphocytes # (Auto) 1.2 x10^3/uL (1.0-4.8) Monocytes # (Auto) 1.1 x10^3/uL (0.0-1.1) Eosinophils # (Auto) 0.0 x10^3/uL (0.0-0.7) Basophils # (Auto) 0.0 x10^3/uL (0.0-0.2) Magnesium Level 2.8 mg/dL (1.8-2.4) Creatine Kinase 73400 U/L (39-308) Triglycerides Level 82 mg/dL (0-150) Cholesterol Level 104 mg/dL (0-200) LDL Cholesterol, Calculated 33 mg/dL (0-100) VLDL Cholesterol, Calculated 16 mg/dL (0-40) Non-HDL Cholesterol Calculated 49 mg/dL (0-129) HDL Cholesterol 55 mg/dL (40-60) Cholesterol/HDL Ratio 1.9 Thyroid Stimulating Hormone (TSH) 1.498 uIU/mL (0.358-3.74) Glucose (Fingerstick) 286 mg/dL (70-99) Test 07/04/18 10:44 Glucose (Fingerstick) 263 mg/dL (70-99) Images Images CT head and cervical spine: Head: There is no hemorrhage. There is no mass effect or midline shift. There is no hydrocephalus. There are areas of decreased attenuation within the cerebral white matter, nonspecific and likely related to chronic small vessel disease. The visualized portions of the orbits, paranasal sinuses and mastoid air cells are unremarkable. No suspicious calvarial lesion is seen. Cervical spine: There is no significant listhesis. The vertebral bodies are normal in height and the disc spaces are preserved. There is mild endplate remodeling at multiple levels. There is facet arthropathy at multiple levels. No severe stenosis is seen. IMPRESSION: No acute intracranial finding or evidence of acute cervical spine trauma. Assessment/Plan Assessment/Plan Impression: Rhabdomyolysis, with CPK increasing, lactic acidosis, markedly improving, I realize this does raise the possibility of a seizure. However, I don't see any trauma to the tongue. There is no incontinence. Patient says he never lost consciousness, he just felt weak. I wonder if this was just a heat stroke. There is no evidence of cerebrovascular stroke, central nervous system infection , or ongoing seizure activity. Bipolar disorder He is on psychiatric medications but I find no evidence of neuroleptic malignant syndrome or serotonin syndrome Recommendations: MRI of the brain Electroencephalogram. Hold on anticonvulsants unless these studies are abnormal. Monitor CPK levels Thank you for letting me help with the patient's care. KEN HERZOG MD Jul 04, 2018 14:21
--- NOTE | 2018-07-04 14:45 | CARD ---
MR#: [id number] Date of Study: 07/04/2018 Ordering Physician: PARIS LEWIS, Referring Physician: CATHERINE RAMIREZ Tech: Shyla River RDCS APPROVED REPORT EXAM: Two-dimensional and M-mode echocardiogram with Doppler and color Doppler. Other Information Quality : Technically LimitedHR: 65bpm Rhythm : NSRTechnically limited study due to body habitus. INDICATION Syncope 2D DIMENSIONS RVDd3.4 (2.9-3.5cm)Left Atrium(2D)3.4 (1.6-4.0cm) IVSd1.1 (0.7-1.1cm)Aortic Root(2D)3.7 (2.0-3.7cm) LVDd5.3 (3.9-5.9cm)LVOT Diameter2.3 (1.8-2.4cm) PWd1.2 (0.7-1.1cm)LVDs3.8 (2.5-4.0cm) FS (%) 27.6 %SV70.9 ml LVEF(%)53.2 (>50%) Aortic Valve AoV Peak Jarvis.159.8cm/sAoV VTI21.5cm AO Peak GR.10.2mmHgLVOT VTI 15.96cm AO Mean GR.5mmHg Mitral Valve MV E Mubsrfba34.8cm/sMV DECEL [id number] MV A Jjazbvpr45.1cm/sE/A Ratio0.9 MV A [id number] Planimetry3.00cm2 TDI Lateral E' P. V11.74cm/sMedial E' P. V16.38cm/s E/Lateral E'7.1E/Medial E'5.1 LEFT VENTRICLE The left ventricle is normal size. There is normal left ventricular wall thickness. The left ventricu lar systolic function is normal. The Ejection Fraction is 55-60%. There is normal LV segmental wall m otion. The left ventricular diastolic function and filling is normal for age. RIGHT VENTRICLE The right ventricle is normal size. There is normal right ventricular wall thickness. The right ventr icular systolic function is normal. ATRIA The left atrium size is normal. The right atrium size is normal. The interatrial septum is intact wit h no evidence for an atrial septal defect or patent foramen ovale as noted on 2-D or Doppler imaging. AORTIC VALVE The aortic valve is normal in structure and function. The aortic valve is trileaflet. Doppler and Col or Flow revealed no significant aortic regurgitation. There is no significant aortic valvular stenosi s. MITRAL VALVE The mitral valve is normal in structure and function. There is no evidence of mitral valve prolapse. There is no mitral valve stenosis. Doppler and Color Flow revealed no mitral valve regurgitation note d. TRICUSPID VALVE The tricuspid valve is normal in structure and function. Doppler and Color Flow revealed no tricuspid valve regurgitation noted. There is no tricuspid valve prolapse or vegetation. There is no tricuspid valve stenosis. PULMONIC VALVE The pulmonary valve is normal in structure and function. Doppler and Color Flow revealed no pulmonic valvular regurgitation. There is no pulmonic valvular stenosis. GREAT VESSELS The aortic root is normal in size. PERICARDIAL EFFUSION There is no evidence of significant pericardial effusion. Critical Notification Critical Value: No <Conclusion> The left ventricular systolic function is normal. The Ejection Fraction is 55-60%. There is normal LV segmental wall motion. No significant valvular stenosis or regurgitation. There is no evidence of significant pericardial effusion. Signed by : Warren Gloria, Electronically Approved : 07/04/2018 14:44:13
[2018-07-04 15:00] VITALS: BP 151/95
--- NOTE | 2018-07-04 16:30 | RAD ---
MRI Brain without contrast History: Recent seizure, altered mental status Technique: Multiplanar, multisequential noncontrast MR imaging was performed of the brain. Contrast: None Comparison: None Findings: There is some motion degradation. There is no evidence of recent infarct or cytotoxic edema. The ventricles, sulci, and cisterns are within normal limits in size and configuration. There is no significant midline shift, intraaxial mass effect, or focal abnormal extra-axial fluid collection. Allowing for motion, there is no significant signal abnormality included hemosiderin deposition of the brain parenchyma. There is preservation of the major intracranial flow-voids at the skull base. There is minimal patchy fluid and thickening of the mastoid air cells bilaterally. The cerebellar tonsils are normal in location. There is no significant abnormality of the pineal gland or pituitary gland. There is negligible patchy ethmoid air cell mucosal thickening. There is nonspecific heterogeneous signal of the marrow of the nonexpanded clivus. Impression: 1. There is no significant intracranial abnormality. Electronically signed by: Louis Hernandez MD (07/04/2018 4:26 PM) [id number]
[2018-07-04 19:00] VITALS: BP 118/75
--- NOTE | 2018-07-04 21:01 | CONS ---
DATE OF CONSULTATION: 07/04/2018 REQUESTING PHYSICIAN: Dr. Corona. REASON FOR CONSULTATION: Possible sepsis. HISTORY OF PRESENT ILLNESS: This is a 58-year-old gentleman who came in with evidently he says he fell down and loss of consciousness. The patient is a poor historian. The patient has scrapes on the knees and the patient was found to have a white count of 30,000. His lactic acid was 30.1, which quickly recovered. BUN and creatinine 30 and 2.4. Toxicology screen was negative. Urinalysis negative. Chest x-ray was negative. The patient did not have any fever. The patient is alert, awake. The patient says he fell down. He lives alone. He denies any nausea, vomiting, diarrhea. Denies any chest pain, shortness of breath, abdominal pain, urinary symptoms or bowel symptoms. He was found to be incontinent when he came in. PAST MEDICAL HISTORY: Positive for hypertension, diabetes. SOCIAL HISTORY: Negative for smoking, alcohol use or drug use. ALLERGIES: No known drug allergies. CURRENT MEDICATIONS: The patient is on Zyvox and Zosyn. REVIEW OF SYSTEMS: As per HPI, all other systems reviewed are negative. PHYSICAL EXAMINATION: GENERAL: Alert and oriented gentleman, not in any distress, not very cooperative. VITAL SIGNS: Stable, afebrile, T-max is up to 99.1. HEENT: NAD. NECK: Supple, no JVP, no lymphadenopathy. LUNGS: Clear. HEART: S1, S2 regular. ABDOMEN: Benign. EXTREMITIES: No edema or cyanosis. SKIN: Unremarkable except he has superficial abrasions on both knees. NEUROLOGIC: The patient does move all the extremities. LABORATORY DATA: White count is down to 14,000. BUN and creatinine is improving to 21 and 1.5. Lactic acid has quickly improved. His urinalysis is unremarkable. His toxicology screen is negative. Chest x-ray is not showing any obvious infiltrate. Renal ultrasound is negative for any obstruction. His CT head was unremarkable. IMPRESSION: 1. The patient most likely had a seizure. Lactic acid of 30 that recovers very quickly has no other explanation ( except it could be lab error ). 2. Lactic acid secondary to seizure. 3. Elevated CPK secondary to #1. 4. Leukocytosis, reactive. 5. Dehydration with acute renal failure, which is improving with hydration. PLAN: Recommend supportive care, hydration. We will discontinue antibiotics, consider Neurology consult and we will continue to follow. Thank you very much, Dr. Corona, for giving me the opportunity to participate in this patient's care. ORTIZ CHOU MD DR: REJI/karoline JOB#: [id number] / [id number] SANJIV
[2018-07-04 23:00] VITALS: BP 144/82
[2018-07-05 03:00] VITALS: BP 159/91
[2018-07-05 05:26] LABS: ALBUMIN 2.8 g/dL (3.4-5.0); CALCIUM 7.8 mg/dL (8.5-10.1); CREATININE 1.2 mg/dL (0.7-1.3); GFR 62.6; PHOSPHORUS 2.4 mg/dL (2.6-4.7); POTASSIUM 4.3 mmol/L (3.5-5.1)
[2018-07-05] MEDS: ACETAMINOPHEN 325 MG TABLET. PO PRN ×2 (05:39→13:30)
[2018-07-05] MEDS: HEPARIN PF for SUB-Q USE 5,000 UNIT/0.5 ML VIAL. SQ SCH ×3 (05:42→20:49)
[2018-07-05] MEDS: IV NORMAL SALINE 1000ML BAG 1,000 ML IV SCH ×2 (06:11→15:24)
[2018-07-05 07:00] VITALS: BP 152/90
[2018-07-05] MEDS: ZIPRASIDONE 20 MG CAPSULE PO SCH ×2 (07:55→20:44)
[2018-07-05] MEDS: MORPHINE SULFATE 2 MG/ML VIAL. IV PRN ×4 (07:56→22:12)
[2018-07-05] MEDS: INSULIN LISPRO 300 UNITS/3 ML INSULN.PEN. SQ SCH ×3 (08:06→17:17)
[2018-07-05] MEDS: INSULIN GLARGINE 300 UNITS/3 ML INSULN.PEN. SQ SCH (08:07)
--- NOTE | 2018-07-05 09:56 | PDOC ---
CARDIO Progress Notes Date and Time Date of Service 07/05/2018 Time of Evaluation 0920 Subjective Subjective: No Chest Pain, No shortness of breath, No Palpitations Vitals Vitals Vital Signs Date Time Temp Pulse Resp B/P (MAP) Pulse Ox O2 Delivery O2 Flow Rate FiO2 07/05/18 08:26 20 94 Room Air 07/05/18 07:00 98.6 103 152/90 (110) 98.6 Weight Weight [ ] Input and Output Intake and Output Intake and Output 07/05/18 07:00 Intake Total 3150 ml Output Total 5450 ml Balance -2300 ml Intake Oral 2150 ml IV Total 1000 ml Output Urine Total 5450 ml Laboratory Labs Laboratory Tests Test 07/04/18 10:44 07/04/18 16:23 07/04/18 20:34 07/05/18 03:53 Glucose (Fingerstick) 263 mg/dL (70-99) 200 mg/dL (70-99) 229 mg/dL (70-99) Sodium Level 133 mmol/L (136-145) Potassium Level 4.3 mmol/L (3.5-5.1) Chloride Level 97 mmol/L (98-107) Carbon Dioxide Level 25 mmol/L (21-32) Anion Gap 11 (6-14) Blood Urea Nitrogen 13 mg/dL (8-26) Creatinine 1.2 mg/dL (0.7-1.3) Estimated GFR (Cockcroft-Gault) 62.6 Glucose Level 247 mg/dL (70-99) Calcium Level 7.8 mg/dL (8.5-10.1) Phosphorus Level 2.4 mg/dL (2.6-4.7) Creatine Kinase 32865 U/L (39-308) Albumin 2.8 g/dL (3.4-5.0) Test 07/05/18 07:17 Glucose (Fingerstick) 197 mg/dL (70-99) Microbiology Micro Microbiology 07/03/18 Blood Culture - Preliminary, Resulted NO GROWTH AFTER 1 DAY Physical Exam HEENT: Neck Supple W Full Motion Chest: Symmetric LUNGS: Clear to Auscultation Heart: S1S2, RRR (sinus tach) Abdomen: Soft N/T Extremities: No Calf Tenderness, Other (1+ bilateral LE pitting edema) Neurology: alert, oriented, follow commands Assessment Assessment 1. Metabolic encephalopathy: better. neurology following. 2. Mechanical fall with potential heat stroke: no arrhythmia overnight 3. NSTEMI: Peaked trop 0.3. Type 2, demand mediated with multifactorial contributors as noted below 4. Severe Rhabdomyolysis/myalgia 5. TARYN with significant dehydration and severe lactic acidosis: resolved 6. Macrocytosis 7. DM2/HLP: on metformin and lipitor 8. HTN: on lisinopril. Controlled 9. Hx of Bipolar disorder: on geodon. 10. Obesity Recommendations 1. Hold statin, lisinopril, metformin. Start on low dose coreg today. Recommend 81 mg of ECASA. 2. IV hydration per nephrology 3. No further workup. Outpt stress test is a consideration given his cardiac risk factors. Follow up in office if pt would comply. PARIS LEWIS APRN Jul 05, 2018 09:56
--- NOTE | 2018-07-05 10:51 | PDOC ---
PROGRESS NOTES Chief Complaint Chief Complaint AMS, metabolic encephalopathy, possible seizure disorder, fall, syncope Acute rhabdomyolysis, CK climbing hypotension resolved with iv bolus lactate acidosis, with markedly high elevation and no pain TARYN, ATN, vs vasomotor hyperglycemia, dm2 htn, hld leukocytosis h/o mental issues mild malnutrition History of Present Illness History of Present Illness seizure likely from extent of CK elevation, discussed with ID and renal at length DC ssi, check hba1c need to verify home meds NS 125cc/h for now, 3L in ER, will repeat LA, BMP later repeat labs tmr dvt ppx PTOT ada DIET Vitals Vitals Vital Signs Date Time Temp Pulse Resp B/P (MAP) Pulse Ox O2 Delivery O2 Flow Rate FiO2 07/05/18 08:26 20 94 Room Air 07/05/18 07:00 98.6 103 152/90 (110) 98.6 Physical Exam General: Alert, Oriented X3, Cooperative, No acute distress Heart: Regular rate (sinus tach), Other (2/6 systolic murmur to LLS border) Lungs: Clear, Crackles Abdomen: Soft, Other (obese) Extremities: No cyanosis, Other (trace caroline le) Skin: Other (knee abrasion) Labs LABS Laboratory Tests Test 07/04/18 16:23 07/04/18 20:34 07/05/18 03:53 07/05/18 07:17 Glucose (Fingerstick) 200 mg/dL (70-99) 229 mg/dL (70-99) 197 mg/dL (70-99) Sodium Level 133 mmol/L (136-145) Potassium Level 4.3 mmol/L (3.5-5.1) Chloride Level 97 mmol/L (98-107) Carbon Dioxide Level 25 mmol/L (21-32) Anion Gap 11 (6-14) Blood Urea Nitrogen 13 mg/dL (8-26) Creatinine 1.2 mg/dL (0.7-1.3) Estimated GFR (Cockcroft-Gault) 62.6 Glucose Level 247 mg/dL (70-99) Calcium Level 7.8 mg/dL (8.5-10.1) Phosphorus Level 2.4 mg/dL (2.6-4.7) Creatine Kinase 95524 U/L (39-308) Albumin 2.8 g/dL (3.4-5.0) Assessment and Plan Assessmemt and Plan Problems Medical Problems: (1) Altered mental state Status: Acute (2) Hypotension Status: Acute (3) Lactic acidosis Status: Acute (4) Left knee pain Status: Acute (5) Left shoulder pain Status: Acute (6) Leukocytosis Status: Acute (7) Multiple abrasions Status: Acute (8) Renal insufficiency Status: Acute Comment Review of Relevant I have reviewed the following items murray (where applicable) has been applied. Labs Laboratory Tests Test 07/03/18 13:55 07/03/18 14:04 07/03/18 14:30 07/03/18 14:51 White Blood Count 30.5 x10^3/uL (4.0-11.0) Red Blood Count 4.92 x10^6/uL (4.30-5.70) Hemoglobin 17.5 g/dL (13.0-17.5) Hematocrit 55.3 % (39.0-53.0) Mean Corpuscular Volume 112 fL (79-100) Mean Corpuscular Hemoglobin 36 pg (25-35) Mean Corpuscular Hemoglobin Concent 32 g/dL (31-37) Red Cell Distribution Width 15.0 % (11.5-14.5) Platelet Count 373 x10^3/uL (140-400) Neutrophils (%) (Auto) 63 % (31-73) Lymphocytes (%) (Auto) 29 % (24-48) Monocytes (%) (Auto) 6 % (0-9) Eosinophils (%) (Auto) 1 % (0-3) Basophils (%) (Auto) 1 % (0-3) Neutrophils # (Auto) 19.3 x10^3uL (1.8-7.7) Lymphocytes # (Auto) 8.8 x10^3/uL (1.0-4.8) Monocytes # (Auto) 1.8 x10^3/uL (0.0-1.1) Eosinophils # (Auto) 0.4 x10^3/uL (0.0-0.7) Basophils # (Auto) 0.2 x10^3/uL (0.0-0.2) Segmented Neutrophils % 45 % (35-66) Band Neutrophils % 7 % (0-9) Lymphocytes % 35 % (24-48) Monocytes % 5 % (0-10) Eosinophils % 1 % (0-5) Metamyelocytes % 4 % (0-0) Myelocytes % 3 % (0-0) Platelet Estimate Adequate (ADEQUATE) Large Platelets Few Polychromasia Slight Macrocytosis Slight Prothrombin Time 15.0 SEC (11.7-14.0) Prothromb Time International Ratio 1.2 (0.8-1.1) Hemoglobin A1c 9.1 % (4.8-5.6) Lactic Acid Level 30.1 mmol/L (0.4-2.0) Troponin I Quantitative < 0.017 ng/mL (0.000-0.055) Ethyl Alcohol Level < 10 mg/dL (0-10) Glucose (Fingerstick) 249 mg/dL (70-99) Urine Collection Type Unknown Urine Color Yellow Urine Clarity Clear Urine pH 7.0 Urine Specific [place] 1.010 Urine Protein Negative mg/dL (NEG-TRACE) Urine Glucose (UA) 500 mg/dL (NEG) Urine Ketones (Stick) Negative mg/dL (NEG) Urine Blood Small (NEG) Urine Nitrite Negative (NEG) Urine Bilirubin Negative (NEG) Urine Urobilinogen Dipstick 0.2 mg/dL (0.2 mg/dL) Urine Leukocyte Esterase Negative (NEG) Urine RBC Occ /HPF (0-2) Urine WBC 0 /HPF (0-4) Urine Squamous Epithelial Cells Occ /LPF Urine Bacteria 0 /HPF (0-FEW) Urine Opiates Screen Neg (NEG) Urine Methadone Screen Neg (NEG) Urine Barbiturates Neg (NEG) Urine Phencyclidine Screen Neg (NEG) Urine Amphetamine/Methamphetamine Neg (NEG) Urine Benzodiazepines Screen Neg (NEG) Urine Cocaine Screen Neg (NEG) Urine Cannabinoids Screen Neg (NEG) Urine Ethyl Alcohol Neg (NEG) Sodium Level 132 mmol/L (136-145) Potassium Level 5.5 mmol/L (3.5-5.1) Chloride Level 94 mmol/L (98-107) Carbon Dioxide Level 15 mmol/L (21-32) Anion Gap 23 (6-14) Blood Urea Nitrogen 30 mg/dL (8-26) Creatinine 2.4 mg/dL (0.7-1.3) Estimated GFR (Cockcroft-Gault) 28.1 BUN/Creatinine Ratio 13 (6-20) Glucose Level 265 mg/dL (70-99) Calcium Level 9.7 mg/dL (8.5-10.1) Magnesium Level 4.9 mg/dL (1.8-2.4) Total Bilirubin 0.3 mg/dL (0.2-1.0) Aspartate Amino Transf (AST/SGOT) 33 U/L (15-37) Alanine Aminotransferase (ALT/SGPT) 71 U/L (16-63) Alkaline Phosphatase 89 U/L (46-116) Creatine Kinase 872 U/L (39-308) Creatine Kinase MB (Mass) 5.4 ng/mL (0.0-3.6) Creatine Kinase MB Relative Index 0.6 % (0-4) ZO-Qdb-[id number]-Type Natriuretic Peptide 44 pg/mL (0-124) Total Protein 6.6 g/dL (6.4-8.2) Albumin 3.2 g/dL (3.4-5.0) Albumin/Globulin Ratio 0.9 (1.0-1.7) Lipase 279 U/L (73-393) Test 07/03/18 18:30 07/03/18 19:47 07/03/18 22:20 07/04/18 04:05 Lactic Acid Level 2.6 mmol/L (0.4-2.0) 1.7 mmol/L (0.4-2.0) Troponin I Quantitative 0.246 ng/mL (0.000-0.055) 0.307 ng/mL (0.000-0.055) Glucose (Fingerstick) 336 mg/dL (70-99) Sodium Level 132 mmol/L (136-145) Potassium Level 4.2 mmol/L (3.5-5.1) Chloride Level 96 mmol/L (98-107) Carbon Dioxide Level 22 mmol/L (21-32) Anion Gap 14 (6-14) Blood Urea Nitrogen 26 mg/dL (8-26) Creatinine 1.7 mg/dL (0.7-1.3) Estimated GFR (Cockcroft-Gault) 41.9 Glucose Level 366 mg/dL (70-99) Calcium Level 8.1 mg/dL (8.5-10.1) Test 07/04/18 04:15 07/04/18 07:14 07/04/18 10:44 07/04/18 16:23 White Blood Count 14.5 x10^3/uL (4.0-11.0) Red Blood Count 4.59 x10^6/uL (4.30-5.70) Hemoglobin 16.2 g/dL (13.0-17.5) Hematocrit 46.6 % (39.0-53.0) Mean Corpuscular Volume 102 fL (79-100) Mean Corpuscular Hemoglobin 35 pg (25-35) Mean Corpuscular Hemoglobin Concent 35 g/dL (31-37) Red Cell Distribution Width 13.5 % (11.5-14.5) Platelet Count 285 x10^3/uL (140-400) Neutrophils (%) (Auto) 84 % (31-73) Lymphocytes (%) (Auto) 8 % (24-48) Monocytes (%) (Auto) 7 % (0-9) Eosinophils (%) (Auto) 0 % (0-3) Basophils (%) (Auto) 0 % (0-3) Neutrophils # (Auto) 12.2 x10^3uL (1.8-7.7) Lymphocytes # (Auto) 1.2 x10^3/uL (1.0-4.8) Monocytes # (Auto) 1.1 x10^3/uL (0.0-1.1) Eosinophils # (Auto) 0.0 x10^3/uL (0.0-0.7) Basophils # (Auto) 0.0 x10^3/uL (0.0-0.2) Sodium Level 134 mmol/L (136-145) Potassium Level 4.4 mmol/L (3.5-5.1) Chloride Level 97 mmol/L (98-107) Carbon Dioxide Level 24 mmol/L (21-32) Anion Gap 13 (6-14) Blood Urea Nitrogen 21 mg/dL (8-26) Creatinine 1.5 mg/dL (0.7-1.3) Estimated GFR (Cockcroft-Gault) 48.4 Glucose Level 248 mg/dL (70-99) Calcium Level 7.9 mg/dL (8.5-10.1) Magnesium Level 2.8 mg/dL (1.8-2.4) Creatine Kinase 36512 U/L (39-308) Triglycerides Level 82 mg/dL (0-150) Cholesterol Level 104 mg/dL (0-200) LDL Cholesterol, Calculated 33 mg/dL (0-100) VLDL Cholesterol, Calculated 16 mg/dL (0-40) Non-HDL Cholesterol Calculated 49 mg/dL (0-129) HDL Cholesterol 55 mg/dL (40-60) Cholesterol/HDL Ratio 1.9 Thyroid Stimulating Hormone (TSH) 1.498 uIU/mL (0.358-3.74) Glucose (Fingerstick) 286 mg/dL (70-99) 263 mg/dL (70-99) 200 mg/dL (70-99) Test 07/04/18 20:34 07/05/18 03:53 07/05/18 07:17 Glucose (Fingerstick) 229 mg/dL (70-99) 197 mg/dL (70-99) Sodium Level 133 mmol/L (136-145) Potassium Level 4.3 mmol/L (3.5-5.1) Chloride Level 97 mmol/L (98-107) Carbon Dioxide Level 25 mmol/L (21-32) Anion Gap 11 (6-14) Blood Urea Nitrogen 13 mg/dL (8-26) Creatinine 1.2 mg/dL (0.7-1.3) Estimated GFR (Cockcroft-Gault) 62.6 Glucose Level 247 mg/dL (70-99) Calcium Level 7.8 mg/dL (8.5-10.1) Phosphorus Level 2.4 mg/dL (2.6-4.7) Creatine Kinase 78875 U/L (39-308) Albumin 2.8 g/dL (3.4-5.0) Laboratory Tests Test 07/04/18 16:23 07/04/18 20:34 07/05/18 03:53 07/05/18 07:17 Glucose (Fingerstick) 200 mg/dL (70-99) 229 mg/dL (70-99) 197 mg/dL (70-99) Sodium Level 133 mmol/L (136-145) Potassium Level 4.3 mmol/L (3.5-5.1) Chloride Level 97 mmol/L (98-107) Carbon Dioxide Level 25 mmol/L (21-32) Anion Gap 11 (6-14) Blood Urea Nitrogen 13 mg/dL (8-26) Creatinine 1.2 mg/dL (0.7-1.3) Estimated GFR (Cockcroft-Gault) 62.6 Glucose Level 247 mg/dL (70-99) Calcium Level 7.8 mg/dL (8.5-10.1) Phosphorus Level 2.4 mg/dL (2.6-4.7) Creatine Kinase 74829 U/L (39-308) Albumin 2.8 g/dL (3.4-5.0) Microbiology 07/03/18 Blood Culture - Preliminary, Resulted NO GROWTH AFTER 1 DAY Medications Current Medications Sodium Chloride 1,000 ml @ 1,000 mls/hr 1X ONCE IV Last administered on at 14:15; Start 07/03/18 at 14:15; Stop 07/03/18 at 15:14; Status DC Neomycin/ Polymyxin/ Bacitracin (Triple Antibiotic Ointment) 1 pkt 1X ONCE TP ; Start 07/03/18 at 14:15; Stop 07/03/18 at 14:50; Status DC Sodium Chloride 1,000 ml @ 1,000 mls/hr 1X ONCE IV Last administered on at 15:15; Start 07/03/18 at 15:15; Stop 07/03/18 at 16:14; Status DC Sodium Chloride 1,000 ml @ 1,000 mls/hr 1X ONCE IV Last administered on at 16:00; Start 07/03/18 at 16:00; Stop 07/03/18 at 16:59; Status DC Piperacillin Sod/ Tazobactam Sod 4.5 gm/Sodium Chloride 100 ml @ 200 mls/hr 1X ONCE IV ; Start 07/03/18 at 16:30; Stop 07/03/18 at 16:59; Status DC Ondansetron HCl (Zofran) 4 mg PRN Q8HRS PRN IV NAUSEA/VOMITING; Start 07/03/18 at 16:30; Stop 07/03/18 at 17:09; Status DC Insulin Human Lispro (HumaLOG) 0-5 UNITS TIDWMEALS SQ ; Start 07/03/18 at 17:00 ; Stop 07/03/18 at 17:00; Status DC Dextrose (Dextrose 50%-Water Syringe) 12.5 gm PRN Q15MIN PRN IV SEE COMMENTS; Start 07/03/18 at 16:30; Stop 07/03/18 at 17:10; Status DC Sodium Chloride 1,000 ml @ 125 mls/hr Q8H IV Last administered on 07/05/18at 06 :11; Start 07/03/18 at 17:00 Acetaminophen (Tylenol) 650 mg PRN Q6HRS PRN PO FEVER Last administered on 07/05at 05:39; Start 07/03/18 at 17:00 Ondansetron HCl (Zofran) 4 mg PRN Q6HRS PRN IV NAUSEA/VOMITING; Start 07/03/18 at 17:00 Morphine Sulfate (Morphine Sulfate) 2 mg PRN Q2HR PRN IV MODERATE TO SEVERE PAIN Last administered on 07/05/18at 07:56; Start 07/03/18 at 17:00 Tramadol HCl (Ultram) 50 mg PRN Q6HRS PRN PO MILD TO MODERATE PAIN Last administered on 07/04/18at 12:42; Start 07/03/18 at 17:00 Docusate Sodium (Colace) 100 mg PRN DAILY PRN PO CONSTIPATION Last administered on 07/05/18at 06:16; Start 07/03/18 at 17:00 Piperacillin Sod/ Tazobactam Sod 3.375 gm/Sodium Chloride 50 ml @ 100 mls/hr Q6HRS IV ; Start 07/04/18 at 00:00; Status UNV Piperacillin Sod/ Tazobactam Sod (Zosyn Per Pharmacy) 1 each PRN DAILY PRN MC SEE COMMENTS; Start 07/03/18 at 17:00; Stop 07/04/18 at 16:19; Status DC Linezolid/Dextrose 300 ml @ 300 mls/hr Q12HR IV Last administered on at 08:06; Start 07/04/18 at 09:00; Stop 07/04/18 at 09:45; Status DC Heparin Sodium (Porcine) (Heparin Sq) 5,000 unit Q8HRS SQ Last administered on 07/05/18at 05:42; Start 07/03/18 at 22:00 Insulin Human Lispro (HumaLOG) 0-9 UNITS TIDWMEALS SQ Last administered on 07/05 08:06; Start 07/03/18 at 18:15 Dextrose (Dextrose 50%-Water Syringe) 12.5 gm PRN Q15MIN PRN IV SEE COMMENTS; Start 07/03/18 at 17:00 Linezolid/Dextrose 300 ml @ 300 mls/hr 1X ONCE IV Last administered on at 21:12; Start 07/03/18 at 18:00; Stop 07/03/18 at 18:59; Status DC Piperacillin Sod/ Tazobactam Sod 4.5 gm/Sodium Chloride 100 ml @ 200 mls/hr Q6HRS IV Last administered on 07/04/18at 05:29; Start 07/04/18 at 00:00; Stop 07/04/18 at 09:45; Status DC Lisinopril (Prinivil) 10 mg DAILY PO ; Start 07/04/18 at 10:00; Stop 07/04/18 at 10:04; Status DC Ziprasidone (Geodon) 80 mg BID PO Last administered on 07/05/18at 07:55; Start 07/04/18 at 10:00 Insulin Glargine (Lantus) 15 units DAILY SQ Last administered on 07/05/18at 08: 07; Start 07/04/18 at 10:00 Amlodipine Besylate (Norvasc) 10 mg DAILY PO Last administered on 07/04/18at 10: 22; Start 07/04/18 at 10:15; Stop 07/04/18 at 15:36; Status DC Tamsulosin HCl (Flomax) 0.4 mg QHS PO ; Start 07/05/18 at 21:00 Tamsulosin HCl (Flomax) 0.4 mg 1X ONCE PO Last administered on 07/04/18at 12:42 ; Start 07/04/18 at 12:00; Stop 07/04/18 at 12:01; Status DC Labetalol HCl (Normodyne Iv Push) 20 mg PRN Q2HR PRN IVP HYPERTENSION, SEE COMMENTS; Start 07/04/18 at 11:45 Carvedilol (Coreg) 3.125 mg BIDWMEALS PO ; Start 07/05/18 at 10:30 Active Scripts Active Reported Lisinopril 10 Mg Tablet 1 Tab PO DAILY Metformin Hcl 1,000 Mg Tablet 1,000 Mg PO BIDWMEALS Geodon (Ziprasidone Hcl) 80 Mg Capsule 1 Cap PO BID Vitals/I & O Vital Sign - Last 24 Hours 10/3/07/04/18 07/04/18 07/04/18 11:00 12:42 13:43 15:00 Temp 97.9 97.6 97.9 97.6 Pulse 112 110 Resp 20 20 B/P (MAP) 138/99 (112) 151/95 (113) Pulse Ox 94 92 O2 Delivery Room Air Room Air Room Air Room Air 07/04/18 07/04/18 07/04/18 07/04/18 19:00 19:53 20:00 23:00 Temp 97.9 98.1 97.9 98.1 Pulse 106 107 Resp 20 20 18 B/P (MAP) 118/75 (89) 144/82 (102) Pulse Ox 95 94 O2 Delivery Room Air Room Air Room Air Room Air 07/04/18 07/05/18 07/05/18 07/05/18 23:35 03:00 07:00 07:56 Temp 97.5 98.6 97.5 98.6 Pulse 108 103 Resp 20 20 20 B/P (MAP) 159/91 (113) 152/90 (110) Pulse Ox 94 98 94 O2 Delivery Room Air Room Air Room Air Room Air 07/05/18 07/05/18 08:00 08:26 Resp 20 Pulse Ox 94 O2 Delivery Room Air Room Air Intake and Output 07/04/18 07/04/18 07/05/18 15:00 23:00 07:00 Intake Total 600 ml 2300 ml 250 ml Output Total 2000 ml 3450 ml Balance 600 ml 300 ml -3200 ml KATHLEEN AU MD Jul 05, 2018 10:51
[2018-07-05 11:00] VITALS: BP 155/89
--- NOTE | 2018-07-05 11:06 | PDOC ---
SUBJECTIVE ROS No new concerns OBJECTIVE Vital Signs Vital Signs Date Time Temp Pulse Resp B/P (MAP) Pulse Ox O2 Delivery O2 Flow Rate FiO2 07/05/18 08:26 20 94 Room Air 07/05/18 07:00 98.6 103 152/90 (110) 98.6 I & 0 Intake and Output 07/05/18 07:00 Intake Total 3150 ml Output Total 5450 ml Balance -2300 ml Intake Oral 2150 ml IV Total 1000 ml Output Urine Total 5450 ml PHYSICAL EXAM Physical Exam GEN.: nad HEENT: NECK: Supple. LUNGS: Clear to auscultation, non labored HEART: RRR, S1, S2 present. ABDOMEN: Soft, nontender. EXTREMITIES: No edema NEUROLOGIC: AxO x 3 SKIN: bl knee skin laceration from fall No CVA/SP tenderness DIAGNOSIS/ASSESSMENT Assessment & Plan TARYN- Etiology Rhabdomyolysis /Pre-renal CPK improving Renal function Improving, Brothers in place,? Urinary retention + renal US and UA Normal Hypocalcemia- Sec to Rhabdo Avoid replacement unless pt symptomatic , to avoid Hypercalcemia, as pt improves Hyponatremia- Normal Na corrected for Glucose Hyperkalemia- Resolved Hypotension- on admission Resolved with IVF DM- On metformin COMMENT/RELEVANT DATA Meds Current Medications Medications (Trade) Dose Ordered Sig/Natasha Start Time Stop Time Status Last Admin Dose Admin Acetaminophen (Tylenol) 650 mg PRN Q6HRS PRN 07/03/18 17:00 07/05/18 05:39 650 MG Amlodipine Besylate (Norvasc) 10 mg DAILY 07/04/18 10:15 07/04/18 15:36 DC 07/04/18 10:22 10 MG Carvedilol (Coreg) 3.125 mg BIDWMEALS 07/05/18 10:30 Dextrose (Dextrose 50%-Water Syringe) 12.5 gm PRN Q15MIN PRN 07/03/18 17:00 Docusate Sodium (Colace) 100 mg PRN DAILY PRN 07/03/18 17:00 07/05/18 06:16 100 MG Heparin Sodium (Porcine) (Heparin Sq) 5,000 unit Q8HRS 07/03/18 22:00 07/05/18 05:42 5,000 UNIT Insulin Glargine (Lantus) 15 units DAILY 07/04/18 10:00 07/05/18 08:07 15 UNITS Insulin Human Lispro (HumaLOG) 0-9 UNITS TIDWMEALS 07/03/18 18:15 07/05/18 08:06 4 UNITS Labetalol HCl (Normodyne Iv Push) 20 mg PRN Q2HR PRN 07/04/18 11:45 Linezolid/Dextrose 300 ml @ 300 mls/hr 1X ONCE 07/03/18 18:00 07/03/18 18:59 DC 07/03/18 21:12 300 MLS/HR Lisinopril (Prinivil) 10 mg DAILY 07/04/18 10:00 07/04/18 10:04 DC Morphine Sulfate (Morphine Sulfate) 2 mg PRN Q2HR PRN 07/03/18 17:00 07/05/18 07:56 2 MG Neomycin/ Polymyxin/ Bacitracin (Triple Antibiotic Ointment) 1 pkt 1X ONCE 07/03/18 14:15 07/03/18 14:50 DC Ondansetron HCl (Zofran) 4 mg PRN Q6HRS PRN 07/03/18 17:00 Piperacillin Sod/ Tazobactam Sod (Zosyn Per Pharmacy) 1 each PRN DAILY PRN 07/03/18 17:00 07/04/18 16:19 DC Piperacillin Sod/ Tazobactam Sod 3.375 gm/Sodium Chloride 50 ml @ 100 mls/hr Q6HRS 07/04/18 00:00 UNV Piperacillin Sod/ Tazobactam Sod 4.5 gm/Sodium Chloride 100 ml @ 200 mls/hr Q6HRS 07/04/18 00:00 07/04/18 09:45 DC 07/04/18 05:29 200 MLS/HR Sodium Chloride 1,000 ml @ 125 mls/hr Q8H 07/03/18 17:00 07/05/18 06:11 125 MLS/HR Tamsulosin HCl (Flomax) 0.4 mg 1X ONCE 07/04/18 12:00 07/04/18 12:01 DC 07/04/18 12:42 0.4 MG Tramadol HCl (Ultram) 50 mg PRN Q6HRS PRN 07/03/18 17:00 07/04/18 12:42 50 MG Ziprasidone (Geodon) 80 mg BID 07/04/18 10:00 07/05/18 07:55 80 MG Lab Laboratory Tests Test 07/04/18 16:23 07/04/18 20:34 07/05/18 03:53 07/05/18 07:17 Glucose (Fingerstick) 200 mg/dL (70-99) 229 mg/dL (70-99) 197 mg/dL (70-99) Sodium Level 133 mmol/L (136-145) Potassium Level 4.3 mmol/L (3.5-5.1) Chloride Level 97 mmol/L (98-107) Carbon Dioxide Level 25 mmol/L (21-32) Anion Gap 11 (6-14) Blood Urea Nitrogen 13 mg/dL (8-26) Creatinine 1.2 mg/dL (0.7-1.3) Estimated GFR (Cockcroft-Gault) 62.6 Glucose Level 247 mg/dL (70-99) Calcium Level 7.8 mg/dL (8.5-10.1) Phosphorus Level 2.4 mg/dL (2.6-4.7) Creatine Kinase 82384 U/L (39-308) Albumin 2.8 g/dL (3.4-5.0) Results All relevant outside records, renal labs, imaging studies, telemetry/EKG's were reviewed. JOSELO RAHMAN MD Jul 05, 2018 11:06
[2018-07-05] MEDS: CARVEDILOL 3.125 MG TABLET. PO SCH ×2 (11:16→17:12)
--- NOTE | 2018-07-05 11:55 | PDOC2 ---
SISI REN Graeme CHAIREZ 07/05/18 1155: UROLOGY CONSULT Date of Consult Date of Consult DATE: 07/05/18 TIME: 11:47 Reason for Consult Reason for Consult: Urinary retention Identification/Chief Complaint Chief Complaint Urinary retention Source Source: Caregiver, Chart review, Patient History of Present Illness Reason for Visit: This 58 year old male was found outside his apartment unconscious and was brought in by the police for medical evaluation. He has since been receiving treatment for encephalopathy. He only went to a urologist once that he can remember. He saw Dr. Garcia earlier this year for testosterone replacement therapy and then to his nurse a few times afterward for shots. Then he changed care to Tiesha Cantu. He denies any prostate cancer or enlarged prostate, or difficulty emptying his bladder. He also denies history of kidney problems or stones. He admits some mild nocturia, getting up 2-3 times at night, but this is not bothersome to him. He denies daytime frequency, dysuria or hematuria. Nursing staff put the tran catheter in him yesterday but prior to this he has not had any trouble voiding/using the restroom. Past Medical History Cardiovascular: HTN, Hyperlipidemia Pulmonary: No pertinent hx CENTRAL NERVOUS SYSTEM: Other (No pertinent history) GI: No pertinent hx Heme/Onc: No pertinent hx Hepatobiliary: No pertinent hx Psych: Bipolar Musculoskeletal: Osteoarthritis Rheumatologic: No pertinent hx Infectious disease: No pertinent hx ENT: No pertinent hx Renal/: No pertinent hx Endocrine: Diabetes, Other (Low T-On Testosterone Replacement Therapy) Dermatology: No pertinent hx Past Surgical History Past Surgical History: No pertinent history Family History Family History: Hypertension Social History No ALCOHOL: none Drugs: None Lives: Alone Current Problem List Problems: (1) Tran catheter in place (2) Urinary retention Current Medications Current Medications Current Medications Carvedilol (Coreg) 3.125 mg BIDWMEALS PO Last administered on 07/05/18at 11:16; Start 07/05/18 at 10:30 Tamsulosin HCl (Flomax) 0.4 mg 1X ONCE PO Last administered on 07/04/18at 12:42 ; Start 07/04/18 at 12:00; Stop 07/04/18 at 12:01; Status DC Tamsulosin HCl (Flomax) 0.4 mg QHS PO ; Start 07/05/18 at 21:00 Allergies Allergies: Coded Allergies: No Known Drug Allergies (Unverified , 07/03/18) ROS Review Of Systems: CONSTITUTIONAL: No fever or chills EYES: No recent changes SKIN: No rash or itching CARDIOVASCULAR: No chest pain, syncope, palpitations, or edema RESPIRATORY: No SOB or cough GASTROINTESTINAL: No nausea, vomiting or abdominal pain NEUROLOGICAL: No headaches or weakness ENDOCRINE: No cold or heat intolerance GENITOURINARY: + tran catheter in place MUSCULOSKELETAL: No back pain or joint pain LYMPHATICS: No enlarged lymph nodes PSYCHIATRIC: No anxiety or depression Physical Exam Physical Exam: General: Pleasant, no acute distress, well groomed Eyes: conjunctiva anicteric, eyes full range of motion ENT: moist oral mucosa, normal dentition Neck: Trachea midline, no masses Respiratory: unlabored breathing, not using accessory muscles, Abdomen: nontender, nondistended, : Tran catheter in place draining clear yellow urine Vitals VITALS Vital Signs Date Time Temp Pulse Resp B/P (MAP) Pulse Ox O2 Delivery O2 Flow Rate FiO2 07/05/18 11:16 103 152/90 07/05/18 08:26 20 94 Room Air 07/05/18 07:00 98.6 98.6 Labs Labs Laboratory Tests Test 07/03/18 13:55 07/03/18 14:04 07/03/18 14:30 07/03/18 14:51 White Blood Count 30.5 x10^3/uL (4.0-11.0) Red Blood Count 4.92 x10^6/uL (4.30-5.70) Hemoglobin 17.5 g/dL (13.0-17.5) Hematocrit 55.3 % (39.0-53.0) Mean Corpuscular Volume 112 fL (79-100) Mean Corpuscular Hemoglobin 36 pg (25-35) Mean Corpuscular Hemoglobin Concent 32 g/dL (31-37) Red Cell Distribution Width 15.0 % (11.5-14.5) Platelet Count 373 x10^3/uL (140-400) Neutrophils (%) (Auto) 63 % (31-73) Lymphocytes (%) (Auto) 29 % (24-48) Monocytes (%) (Auto) 6 % (0-9) Eosinophils (%) (Auto) 1 % (0-3) Basophils (%) (Auto) 1 % (0-3) Neutrophils # (Auto) 19.3 x10^3uL (1.8-7.7) Lymphocytes # (Auto) 8.8 x10^3/uL (1.0-4.8) Monocytes # (Auto) 1.8 x10^3/uL (0.0-1.1) Eosinophils # (Auto) 0.4 x10^3/uL (0.0-0.7) Basophils # (Auto) 0.2 x10^3/uL (0.0-0.2) Segmented Neutrophils % 45 % (35-66) Band Neutrophils % 7 % (0-9) Lymphocytes % 35 % (24-48) Monocytes % 5 % (0-10) Eosinophils % 1 % (0-5) Metamyelocytes % 4 % (0-0) Myelocytes % 3 % (0-0) Platelet Estimate Adequate (ADEQUATE) Large Platelets Few Polychromasia Slight Macrocytosis Slight Prothrombin Time 15.0 SEC (11.7-14.0) Prothromb Time International Ratio 1.2 (0.8-1.1) Hemoglobin A1c 9.1 % (4.8-5.6) Lactic Acid Level 30.1 mmol/L (0.4-2.0) Troponin I Quantitative < 0.017 ng/mL (0.000-0.055) Ethyl Alcohol Level < 10 mg/dL (0-10) Glucose (Fingerstick) 249 mg/dL (70-99) Urine Collection Type Unknown Urine Color Yellow Urine Clarity Clear Urine pH 7.0 Urine Specific Eros 1.010 Urine Protein Negative mg/dL (NEG-TRACE) Urine Glucose (UA) 500 mg/dL (NEG) Urine Ketones (Stick) Negative mg/dL (NEG) Urine Blood Small (NEG) Urine Nitrite Negative (NEG) Urine Bilirubin Negative (NEG) Urine Urobilinogen Dipstick 0.2 mg/dL (0.2 mg/dL) Urine Leukocyte Esterase Negative (NEG) Urine RBC Occ /HPF (0-2) Urine WBC 0 /HPF (0-4) Urine Squamous Epithelial Cells Occ /LPF Urine Bacteria 0 /HPF (0-FEW) Urine Opiates Screen Neg (NEG) Urine Methadone Screen Neg (NEG) Urine Barbiturates Neg (NEG) Urine Phencyclidine Screen Neg (NEG) Urine Amphetamine/Methamphetamine Neg (NEG) Urine Benzodiazepines Screen Neg (NEG) Urine Cocaine Screen Neg (NEG) Urine Cannabinoids Screen Neg (NEG) Urine Ethyl Alcohol Neg (NEG) Sodium Level 132 mmol/L (136-145) Potassium Level 5.5 mmol/L (3.5-5.1) Chloride Level 94 mmol/L (98-107) Carbon Dioxide Level 15 mmol/L (21-32) Anion Gap 23 (6-14) Blood Urea Nitrogen 30 mg/dL (8-26) Creatinine 2.4 mg/dL (0.7-1.3) Estimated GFR (Cockcroft-Gault) 28.1 BUN/Creatinine Ratio 13 (6-20) Glucose Level 265 mg/dL (70-99) Calcium Level 9.7 mg/dL (8.5-10.1) Magnesium Level 4.9 mg/dL (1.8-2.4) Total Bilirubin 0.3 mg/dL (0.2-1.0) Aspartate Amino Transf (AST/SGOT) 33 U/L (15-37) Alanine Aminotransferase (ALT/SGPT) 71 U/L (16-63) Alkaline Phosphatase 89 U/L (46-116) Creatine Kinase 872 U/L (39-308) Creatine Kinase MB (Mass) 5.4 ng/mL (0.0-3.6) Creatine Kinase MB Relative Index 0.6 % (0-4) BW-Wyh-S-Type Natriuretic Peptide 44 pg/mL (0-124) Total Protein 6.6 g/dL (6.4-8.2) Albumin 3.2 g/dL (3.4-5.0) Albumin/Globulin Ratio 0.9 (1.0-1.7) Lipase 279 U/L (73-393) Test 07/03/18 18:30 07/03/18 19:47 07/03/18 22:20 07/04/18 04:05 Lactic Acid Level 2.6 mmol/L (0.4-2.0) 1.7 mmol/L (0.4-2.0) Troponin I Quantitative 0.246 ng/mL (0.000-0.055) 0.307 ng/mL (0.000-0.055) Glucose (Fingerstick) 336 mg/dL (70-99) Sodium Level 132 mmol/L (136-145) Potassium Level 4.2 mmol/L (3.5-5.1) Chloride Level 96 mmol/L (98-107) Carbon Dioxide Level 22 mmol/L (21-32) Anion Gap 14 (6-14) Blood Urea Nitrogen 26 mg/dL (8-26) Creatinine 1.7 mg/dL (0.7-1.3) Estimated GFR (Cockcroft-Gault) 41.9 Glucose Level 366 mg/dL (70-99) Calcium Level 8.1 mg/dL (8.5-10.1) Test 07/04/18 04:15 07/04/18 07:14 07/04/18 10:44 07/04/18 16:23 White Blood Count 14.5 x10^3/uL (4.0-11.0) Red Blood Count 4.59 x10^6/uL (4.30-5.70) Hemoglobin 16.2 g/dL (13.0-17.5) Hematocrit 46.6 % (39.0-53.0) Mean Corpuscular Volume 102 fL (79-100) Mean Corpuscular Hemoglobin 35 pg (25-35) Mean Corpuscular Hemoglobin Concent 35 g/dL (31-37) Red Cell Distribution Width 13.5 % (11.5-14.5) Platelet Count 285 x10^3/uL (140-400) Neutrophils (%) (Auto) 84 % (31-73) Lymphocytes (%) (Auto) 8 % (24-48) Monocytes (%) (Auto) 7 % (0-9) Eosinophils (%) (Auto) 0 % (0-3) Basophils (%) (Auto) 0 % (0-3) Neutrophils # (Auto) 12.2 x10^3uL (1.8-7.7) Lymphocytes # (Auto) 1.2 x10^3/uL (1.0-4.8) Monocytes # (Auto) 1.1 x10^3/uL (0.0-1.1) Eosinophils # (Auto) 0.0 x10^3/uL (0.0-0.7) Basophils # (Auto) 0.0 x10^3/uL (0.0-0.2) Sodium Level 134 mmol/L (136-145) Potassium Level 4.4 mmol/L (3.5-5.1) Chloride Level 97 mmol/L (98-107) Carbon Dioxide Level 24 mmol/L (21-32) Anion Gap 13 (6-14) Blood Urea Nitrogen 21 mg/dL (8-26) Creatinine 1.5 mg/dL (0.7-1.3) Estimated GFR (Cockcroft-Gault) 48.4 Glucose Level 248 mg/dL (70-99) Calcium Level 7.9 mg/dL (8.5-10.1) Magnesium Level 2.8 mg/dL (1.8-2.4) Creatine Kinase 39016 U/L (39-308) Triglycerides Level 82 mg/dL (0-150) Cholesterol Level 104 mg/dL (0-200) LDL Cholesterol, Calculated 33 mg/dL (0-100) VLDL Cholesterol, Calculated 16 mg/dL (0-40) Non-HDL Cholesterol Calculated 49 mg/dL (0-129) HDL Cholesterol 55 mg/dL (40-60) Cholesterol/HDL Ratio 1.9 Thyroid Stimulating Hormone (TSH) 1.498 uIU/mL (0.358-3.74) Glucose (Fingerstick) 286 mg/dL (70-99) 263 mg/dL (70-99) 200 mg/dL (70-99) Test 07/04/18 20:34 07/05/18 03:53 07/05/18 07:17 07/05/18 11:14 Glucose (Fingerstick) 229 mg/dL (70-99) 197 mg/dL (70-99) 239 mg/dL (70-99) Sodium Level 133 mmol/L (136-145) Potassium Level 4.3 mmol/L (3.5-5.1) Chloride Level 97 mmol/L (98-107) Carbon Dioxide Level 25 mmol/L (21-32) Anion Gap 11 (6-14) Blood Urea Nitrogen 13 mg/dL (8-26) Creatinine 1.2 mg/dL (0.7-1.3) Estimated GFR (Cockcroft-Gault) 62.6 Glucose Level 247 mg/dL (70-99) Calcium Level 7.8 mg/dL (8.5-10.1) Phosphorus Level 2.4 mg/dL (2.6-4.7) Creatine Kinase 71084 U/L (39-308) Albumin 2.8 g/dL (3.4-5.0) Laboratory Tests Test 07/04/18 16:23 07/04/18 20:34 07/05/18 03:53 07/05/18 07:17 Glucose (Fingerstick) 200 mg/dL (70-99) 229 mg/dL (70-99) 197 mg/dL (70-99) Sodium Level 133 mmol/L (136-145) Potassium Level 4.3 mmol/L (3.5-5.1) Chloride Level 97 mmol/L (98-107) Carbon Dioxide Level 25 mmol/L (21-32) Anion Gap 11 (6-14) Blood Urea Nitrogen 13 mg/dL (8-26) Creatinine 1.2 mg/dL (0.7-1.3) Estimated GFR (Cockcroft-Gault) 62.6 Glucose Level 247 mg/dL (70-99) Calcium Level 7.8 mg/dL (8.5-10.1) Phosphorus Level 2.4 mg/dL (2.6-4.7) Creatine Kinase 74937 U/L (39-308) Albumin 2.8 g/dL (3.4-5.0) Test 07/05/18 11:14 Glucose (Fingerstick) 239 mg/dL (70-99) Assessment/Plan Assessment/Plan Urinary retention of 400 out-Continue tran catheter for 2-3 days. Continue flomax. May attempt voiding trial tomorrow or Monday. MELI STOUT MD 07/05/18 1516: UROLOGY CONSULT Assessment/Plan Assessment/Plan Agree with assessment and plan. Urinary retention likely due to encephalopathy. Voiding trial before discharge when cognition has improved. SISI REN APRN Jul 05, 2018 11:55 MELI STOUT MD Jul 05, 2018 15:16
--- NOTE | 2018-07-05 12:22 | PDOC ---
Infectious Disease Note Subjective Subjective feeling good ROS ROS no n/v/d/sob Vital Sign Vital Signs Vital Signs Date Time Temp Pulse Resp B/P (MAP) Pulse Ox O2 Delivery O2 Flow Rate FiO2 07/05/18 11:16 103 152/90 07/05/18 08:26 20 94 Room Air 07/05/18 07:00 98.6 98.6 Physical Exam PHYSICAL EXAM GENERAL: Alert and oriented gentleman, not in any distress, not very cooperative. VITAL SIGNS: Stable, HEENT: NAD. NECK: Supple, no JVP, no lymphadenopathy. LUNGS: Clear. HEART: S1, S2 regular. ABDOMEN: Benign. EXTREMITIES: No edema or cyanosis. SKIN: Unremarkable except he has superficial abrasions on both knees. NEUROLOGIC: The patient does move all the extremities. Labs Lab Laboratory Tests Test 07/04/18 16:23 07/04/18 20:34 07/05/18 03:53 07/05/18 07:17 Glucose (Fingerstick) 200 mg/dL (70-99) 229 mg/dL (70-99) 197 mg/dL (70-99) Sodium Level 133 mmol/L (136-145) Potassium Level 4.3 mmol/L (3.5-5.1) Chloride Level 97 mmol/L (98-107) Carbon Dioxide Level 25 mmol/L (21-32) Anion Gap 11 (6-14) Blood Urea Nitrogen 13 mg/dL (8-26) Creatinine 1.2 mg/dL (0.7-1.3) Estimated GFR (Cockcroft-Gault) 62.6 Glucose Level 247 mg/dL (70-99) Calcium Level 7.8 mg/dL (8.5-10.1) Phosphorus Level 2.4 mg/dL (2.6-4.7) Creatine Kinase 83547 U/L (39-308) Albumin 2.8 g/dL (3.4-5.0) Test 07/05/18 11:14 Glucose (Fingerstick) 239 mg/dL (70-99) Micro Microbiology 07/03/18 Blood Culture - Preliminary, Resulted NO GROWTH AFTER 1 DAY Objective Assessment 1. The patient most likely had a seizure. Lactic acid of 30 that recovers very quickly has no other explanation ( except it could be lab error ). 2. Lactic acid secondary to seizure. 3. Elevated CPK secondary to #1. 4. Leukocytosis, reactive. 5. Dehydration with acute renal failure, which is improving with hydration. Plan Plan of Care off antibiotics fluids supportive care ORTIZ CHOU MD Jul 05, 2018 12:22
--- NOTE | 2018-07-05 14:40 | EEG ---
DATE OF SERVICE: 07/04/2018 ELECTROENCEPHALOGRAM NUMBER: [id number]. OBJECTIVE: The patient is a 58-year-old male with possible seizure as evidenced by rhabdomyolysis and elevated lactic acid levels. DESCRIPTION: This is a digital study. Electrodes are placed according to the international 10-20 system. Bipolar and referential montages are available. Activation procedures typically include hyperventilation and intermittent photic stimulation. INTERPRETATION: The waking background consists of 9-10 Hz, 50-100 microvolt activity, symmetrically distributed over parietooccipital regions and reactive to eye opening. Hyperventilation and intermittent photic stimulation are noncontributory. Stage 1 sleep is achieved with normal electroencephalogram patterns. IMPRESSION: This electroencephalogram with the patient awake and asleep is within normal limits. There is no focal, paroxysmal, or epileptiform activity. Thank you for letting us help with the patient's care. KEN HERZOG MD DR: CHIDI/karoline JOB#: [id number] / [id number] JOHNATHON Mane MD, CHUNMEI MD
[2018-07-05 15:00] VITALS: BP 146/86
--- NOTE | 2018-07-05 15:32 | PDOC ---
PROGRESS NOTES Assessment Problems Medical Problems: (1) Altered mental state Status: Acute (2) Hypotension Status: Acute (3) Lactic acidosis Status: Acute (4) Left knee pain Status: Acute (5) Left shoulder pain Status: Acute (6) Leukocytosis Status: Acute (7) Multiple abrasions Status: Acute (8) Renal insufficiency Status: Acute Rhabdomyolysis, CPK decreasing Unexplained lactic acidosis Possible seizure. EEG and MRI brain are normal Bipolar disorder He is on psychiatric medications but I find no evidence of neuroleptic malignant syndrome or serotonin syndrome Plan Hold on anticonvulsants unless these studies are abnormal. Monitor CPK levels Subjective Has muscle pain in the legs. Objective Vital Signs Date Time Temp Pulse Resp B/P (MAP) Pulse Ox O2 Delivery O2 Flow Rate FiO2 07/05/18 13:45 20 99 Room Air 07/05/18 11:16 103 152/90 07/05/18 11:00 98.0 98.0 Intake and Output 07/05/18 07:00 Intake Total 3150 ml Output Total 5450 ml Balance -2300 ml Intake Oral 2150 ml IV Total 1000 ml Output Urine Total 5450 ml PHYSICAL EXAM Flat affect. Alert. Oriented to time, place and person. PERRL. EOMI. CN: no focal findings. Muscle tone: normal. Muscle strength: 5/5 DTR: 1+ Plantar reflex: flexor Gait: not examined in bed. Sensory exam: no abnormal findings. No cerebellar signs elicited. Review of Relevant I have reviewed the following items murray (where applicable) has been applied. Labs Laboratory Tests Test 07/03/18 18:30 07/03/18 19:47 07/03/18 22:20 07/04/18 04:05 Lactic Acid Level 2.6 mmol/L (0.4-2.0) 1.7 mmol/L (0.4-2.0) Troponin I Quantitative 0.246 ng/mL (0.000-0.055) 0.307 ng/mL (0.000-0.055) Glucose (Fingerstick) 336 mg/dL (70-99) Sodium Level 132 mmol/L (136-145) Potassium Level 4.2 mmol/L (3.5-5.1) Chloride Level 96 mmol/L (98-107) Carbon Dioxide Level 22 mmol/L (21-32) Anion Gap 14 (6-14) Blood Urea Nitrogen 26 mg/dL (8-26) Creatinine 1.7 mg/dL (0.7-1.3) Estimated GFR (Cockcroft-Gault) 41.9 Glucose Level 366 mg/dL (70-99) Calcium Level 8.1 mg/dL (8.5-10.1) Test 07/04/18 04:15 07/04/18 07:14 07/04/18 10:44 07/04/18 16:23 White Blood Count 14.5 x10^3/uL (4.0-11.0) Red Blood Count 4.59 x10^6/uL (4.30-5.70) Hemoglobin 16.2 g/dL (13.0-17.5) Hematocrit 46.6 % (39.0-53.0) Mean Corpuscular Volume 102 fL (79-100) Mean Corpuscular Hemoglobin 35 pg (25-35) Mean Corpuscular Hemoglobin Concent 35 g/dL (31-37) Red Cell Distribution Width 13.5 % (11.5-14.5) Platelet Count 285 x10^3/uL (140-400) Neutrophils (%) (Auto) 84 % (31-73) Lymphocytes (%) (Auto) 8 % (24-48) Monocytes (%) (Auto) 7 % (0-9) Eosinophils (%) (Auto) 0 % (0-3) Basophils (%) (Auto) 0 % (0-3) Neutrophils # (Auto) 12.2 x10^3uL (1.8-7.7) Lymphocytes # (Auto) 1.2 x10^3/uL (1.0-4.8) Monocytes # (Auto) 1.1 x10^3/uL (0.0-1.1) Eosinophils # (Auto) 0.0 x10^3/uL (0.0-0.7) Basophils # (Auto) 0.0 x10^3/uL (0.0-0.2) Sodium Level 134 mmol/L (136-145) Potassium Level 4.4 mmol/L (3.5-5.1) Chloride Level 97 mmol/L (98-107) Carbon Dioxide Level 24 mmol/L (21-32) Anion Gap 13 (6-14) Blood Urea Nitrogen 21 mg/dL (8-26) Creatinine 1.5 mg/dL (0.7-1.3) Estimated GFR (Cockcroft-Gault) 48.4 Glucose Level 248 mg/dL (70-99) Calcium Level 7.9 mg/dL (8.5-10.1) Magnesium Level 2.8 mg/dL (1.8-2.4) Creatine Kinase 50033 U/L (39-308) Triglycerides Level 82 mg/dL (0-150) Cholesterol Level 104 mg/dL (0-200) LDL Cholesterol, Calculated 33 mg/dL (0-100) VLDL Cholesterol, Calculated 16 mg/dL (0-40) Non-HDL Cholesterol Calculated 49 mg/dL (0-129) HDL Cholesterol 55 mg/dL (40-60) Cholesterol/HDL Ratio 1.9 Thyroid Stimulating Hormone (TSH) 1.498 uIU/mL (0.358-3.74) Glucose (Fingerstick) 286 mg/dL (70-99) 263 mg/dL (70-99) 200 mg/dL (70-99) Test 07/04/18 20:34 07/05/18 03:53 07/05/18 07:17 07/05/18 11:14 Glucose (Fingerstick) 229 mg/dL (70-99) 197 mg/dL (70-99) 239 mg/dL (70-99) Sodium Level 133 mmol/L (136-145) Potassium Level 4.3 mmol/L (3.5-5.1) Chloride Level 97 mmol/L (98-107) Carbon Dioxide Level 25 mmol/L (21-32) Anion Gap 11 (6-14) Blood Urea Nitrogen 13 mg/dL (8-26) Creatinine 1.2 mg/dL (0.7-1.3) Estimated GFR (Cockcroft-Gault) 62.6 Glucose Level 247 mg/dL (70-99) Calcium Level 7.8 mg/dL (8.5-10.1) Phosphorus Level 2.4 mg/dL (2.6-4.7) Creatine Kinase 69506 U/L (39-308) Albumin 2.8 g/dL (3.4-5.0) Laboratory Tests Test 07/04/18 16:23 07/04/18 20:34 07/05/18 03:53 07/05/18 07:17 Glucose (Fingerstick) 200 mg/dL (70-99) 229 mg/dL (70-99) 197 mg/dL (70-99) Sodium Level 133 mmol/L (136-145) Potassium Level 4.3 mmol/L (3.5-5.1) Chloride Level 97 mmol/L (98-107) Carbon Dioxide Level 25 mmol/L (21-32) Anion Gap 11 (6-14) Blood Urea Nitrogen 13 mg/dL (8-26) Creatinine 1.2 mg/dL (0.7-1.3) Estimated GFR (Cockcroft-Gault) 62.6 Glucose Level 247 mg/dL (70-99) Calcium Level 7.8 mg/dL (8.5-10.1) Phosphorus Level 2.4 mg/dL (2.6-4.7) Creatine Kinase 23887 U/L (39-308) Albumin 2.8 g/dL (3.4-5.0) Test 07/05/18 11:14 Glucose (Fingerstick) 239 mg/dL (70-99) Microbiology 07/03/18 Blood Culture - Preliminary, Resulted NO GROWTH AFTER 1 DAY Medications Current Medications Sodium Chloride 1,000 ml @ 1,000 mls/hr 1X ONCE IV Last administered on at 14:15; Start 07/03/18 at 14:15; Stop 07/03/18 at 15:14; Status DC Neomycin/ Polymyxin/ Bacitracin (Triple Antibiotic Ointment) 1 pkt 1X ONCE TP ; Start 07/03/18 at 14:15; Stop 07/03/18 at 14:50; Status DC Sodium Chloride 1,000 ml @ 1,000 mls/hr 1X ONCE IV Last administered on at 15:15; Start 07/03/18 at 15:15; Stop 07/03/18 at 16:14; Status DC Sodium Chloride 1,000 ml @ 1,000 mls/hr 1X ONCE IV Last administered on at 16:00; Start 07/03/18 at 16:00; Stop 07/03/18 at 16:59; Status DC Piperacillin Sod/ Tazobactam Sod 4.5 gm/Sodium Chloride 100 ml @ 200 mls/hr 1X ONCE IV ; Start 07/03/18 at 16:30; Stop 07/03/18 at 16:59; Status DC Ondansetron HCl (Zofran) 4 mg PRN Q8HRS PRN IV NAUSEA/VOMITING; Start 07/03/18 at 16:30; Stop 07/03/18 at 17:09; Status DC Insulin Human Lispro (HumaLOG) 0-5 UNITS TIDWMEALS SQ ; Start 07/03/18 at 17:00 ; Stop 07/03/18 at 17:00; Status DC Dextrose (Dextrose 50%-Water Syringe) 12.5 gm PRN Q15MIN PRN IV SEE COMMENTS; Start 07/03/18 at 16:30; Stop 07/03/18 at 17:10; Status DC Sodium Chloride 1,000 ml @ 125 mls/hr Q8H IV Last administered on 07/05/18at 15 :24; Start 07/03/18 at 17:00 Acetaminophen (Tylenol) 650 mg PRN Q6HRS PRN PO FEVER Last administered on 07/05at 13:30; Start 07/03/18 at 17:00 Ondansetron HCl (Zofran) 4 mg PRN Q6HRS PRN IV NAUSEA/VOMITING; Start 07/03/18 at 17:00 Morphine Sulfate (Morphine Sulfate) 2 mg PRN Q2HR PRN IV MODERATE TO SEVERE PAIN Last administered on 07/05/18at 13:30; Start 07/03/18 at 17:00 Tramadol HCl (Ultram) 50 mg PRN Q6HRS PRN PO MILD TO MODERATE PAIN Last administered on 07/04/18at 12:42; Start 07/03/18 at 17:00 Docusate Sodium (Colace) 100 mg PRN DAILY PRN PO CONSTIPATION Last administered on 07/05/18at 06:16; Start 07/03/18 at 17:00 Piperacillin Sod/ Tazobactam Sod 3.375 gm/Sodium Chloride 50 ml @ 100 mls/hr Q6HRS IV ; Start 07/04/18 at 00:00; Status UNV Piperacillin Sod/ Tazobactam Sod (Zosyn Per Pharmacy) 1 each PRN DAILY PRN MC SEE COMMENTS; Start 07/03/18 at 17:00; Stop 07/04/18 at 16:19; Status DC Linezolid/Dextrose 300 ml @ 300 mls/hr Q12HR IV Last administered on at 08:06; Start 07/04/18 at 09:00; Stop 07/04/18 at 09:45; Status DC Heparin Sodium (Porcine) (Heparin Sq) 5,000 unit Q8HRS SQ Last administered on 07/05/18at 05:42; Start 07/03/18 at 22:00 Insulin Human Lispro (HumaLOG) 0-9 UNITS TIDWMEALS SQ Last administered on 07/05at 11:22; Start 07/03/18 at 18:15 Dextrose (Dextrose 50%-Water Syringe) 12.5 gm PRN Q15MIN PRN IV SEE COMMENTS; Start 07/03/18 at 17:00 Linezolid/Dextrose 300 ml @ 300 mls/hr 1X ONCE IV Last administered on at 21:12; Start 07/03/18 at 18:00; Stop 07/03/18 at 18:59; Status DC Piperacillin Sod/ Tazobactam Sod 4.5 gm/Sodium Chloride 100 ml @ 200 mls/hr Q6HRS IV Last administered on 07/04/18at 05:29; Start 07/04/18 at 00:00; Stop 07/04/18 at 09:45; Status DC Lisinopril (Prinivil) 10 mg DAILY PO ; Start 07/04/18 at 10:00; Stop 07/04/18 at 10:04; Status DC Ziprasidone (Geodon) 80 mg BID PO Last administered on 07/05/18at 07:55; Start 07/04/18 at 10:00 Insulin Glargine (Lantus) 15 units DAILY SQ Last administered on 07/05/18at 08: 07; Start 07/04/18 at 10:00 Amlodipine Besylate (Norvasc) 10 mg DAILY PO Last administered on 07/04/18at 10: 22; Start 07/04/18 at 10:15; Stop 07/04/18 at 15:36; Status DC Tamsulosin HCl (Flomax) 0.4 mg QHS PO ; Start 07/05/18 at 21:00 Tamsulosin HCl (Flomax) 0.4 mg 1X ONCE PO Last administered on 07/04/18at 12:42 ; Start 07/04/18 at 12:00; Stop 07/04/18 at 12:01; Status DC Labetalol HCl (Normodyne Iv Push) 20 mg PRN Q2HR PRN IVP HYPERTENSION, SEE COMMENTS; Start 07/04/18 at 11:45 Carvedilol (Coreg) 3.125 mg BIDWMEALS PO Last administered on 07/05/18at 11:16; Start 07/05/18 at 10:30 Active Scripts Active Reported Lisinopril 10 Mg Tablet 1 Tab PO DAILY Metformin Hcl 1,000 Mg Tablet 1,000 Mg PO BIDWMEALS Geodon (Ziprasidone Hcl) 80 Mg Capsule 1 Cap PO BID Vitals/I & O Vital Sign - Last 24 Hours 07/04/18 07/04/18 07/04/18 07/04/18 19:00 19:53 20:00 23:00 Temp 97.9 98.1 97.9 98.1 Pulse 106 107 Resp 20 20 18 B/P (MAP) 118/75 (89) 144/82 (102) Pulse Ox 95 94 O2 Delivery Room Air Room Air Room Air Room Air 07/04/18 07/05/18 07/05/18 07/05/18 23:35 03:00 07:00 07:56 Temp 97.5 98.6 97.5 98.6 Pulse 108 103 Resp 20 20 20 B/P (MAP) 159/91 (113) 152/90 (110) Pulse Ox 94 98 94 O2 Delivery Room Air Room Air Room Air Room Air 07/05/18 07/05/18 07/05/18 07/05/18 08:00 11:00 11:16 13:30 Temp 98.0 98.0 Pulse 108 103 Resp 20 20 B/P (MAP) 155/89 (111) 152/90 Pulse Ox 99 99 O2 Delivery Room Air Room Air Room Air 07/05/18 13:45 Resp 20 Pulse Ox 99 O2 Delivery Room Air Intake and Output 07/04/18 07/04/18 07/05/18 15:00 23:00 07:00 Intake Total 600 ml 2300 ml 250 ml Output Total 2000 ml 3450 ml Balance 600 ml 300 ml -3200 ml KEN HERZOG MD Jul 05, 2018 15:32
[2018-07-05 19:00] VITALS: BP 157/91
[2018-07-05] MEDS: TAMSULOSIN 0.4 MG CAP.ER.24H. PO SCH (20:44)
[2018-07-05] MEDS: traMADol 50 MG TABLET PO PRN (20:44)
[2018-07-05 23:00] VITALS: BP 159/76
[2018-07-06 03:00] VITALS: BP 145/91
[2018-07-06] MEDS: MORPHINE SULFATE 2 MG/ML VIAL. IV PRN ×2 (03:46→22:23)
[2018-07-06] MEDS: HEPARIN PF for SUB-Q USE 5,000 UNIT/0.5 ML VIAL. SQ SCH ×3 (05:44→22:27)
[2018-07-06] MEDS: IV NORMAL SALINE 1000ML BAG 1,000 ML IV SCH ×3 (05:45→14:25)
[2018-07-06] MEDS: ACETAMINOPHEN 325 MG TABLET. PO PRN ×3 (06:12→16:51)
[2018-07-06 07:00] VITALS: BP 135/82
--- NOTE | 2018-07-06 07:56 | PDOC ---
PROGRESS NOTES Assessment Problems Medical Problems: (1) Altered mental state Status: Acute (2) Hypotension Status: Acute (3) Lactic acidosis Status: Acute (4) Left knee pain Status: Acute (5) Left shoulder pain Status: Acute (6) Leukocytosis Status: Acute (7) Multiple abrasions Status: Acute (8) Renal insufficiency Status: Acute Rhabdomyolysis, CPK decreasing Unexplained lactic acidosis Possible seizure. EEG and MRI brain are normal Bipolar disorder He is on psychiatric medications but I find no evidence of neuroleptic malignant syndrome or serotonin syndrome Plan Hold on anticonvulsants Monitor CPK levels Okay for discharge when CPK below 1000 or per renal service Subjective Myalgic pain is better. Still does not recall any loss of consciousness Objective Vital Signs Date Time Temp Pulse Resp B/P (MAP) Pulse Ox O2 Delivery O2 Flow Rate FiO2 07/06/18 03:46 20 Room Air 07/06/18 03:00 98.1 103 145/91 (109) 93 98.1 Intake and Output 07/06/18 07:00 Intake Total 3680 ml Output Total 7400 ml Balance -3720 ml Intake Oral 2680 ml IV Total 1000 ml Output Urine Total 7400 ml # Bowel Movements 2 PHYSICAL EXAM Flat affect. Alert. Oriented to time, place and person. PERRL. EOMI. CN: no focal findings. Muscle tone: normal. Muscle strength: 5/5 DTR: 1+ Plantar reflex: flexor Gait: not examined in bed. Sensory exam: no abnormal findings. No cerebellar signs elicited. Review of Relevant I have reviewed the following items murray (where applicable) has been applied. Labs Laboratory Tests Test 07/04/18 10:44 07/04/18 16:23 07/04/18 20:34 07/05/18 03:53 Glucose (Fingerstick) 263 mg/dL (70-99) 200 mg/dL (70-99) 229 mg/dL (70-99) Sodium Level 133 mmol/L (136-145) Potassium Level 4.3 mmol/L (3.5-5.1) Chloride Level 97 mmol/L (98-107) Carbon Dioxide Level 25 mmol/L (21-32) Anion Gap 11 (6-14) Blood Urea Nitrogen 13 mg/dL (8-26) Creatinine 1.2 mg/dL (0.7-1.3) Estimated GFR (Cockcroft-Gault) 62.6 Glucose Level 247 mg/dL (70-99) Calcium Level 7.8 mg/dL (8.5-10.1) Phosphorus Level 2.4 mg/dL (2.6-4.7) Creatine Kinase 84344 U/L (39-308) Albumin 2.8 g/dL (3.4-5.0) Test 07/05/18 07:17 07/05/18 11:14 07/05/18 16:51 07/05/18 19:39 Glucose (Fingerstick) 197 mg/dL (70-99) 239 mg/dL (70-99) 185 mg/dL (70-99) 176 mg/dL (70-99) Test 07/06/18 04:00 07/06/18 07:14 Creatine Kinase 16048 U/L (39-308) Glucose (Fingerstick) 192 mg/dL (70-99) Laboratory Tests Test 07/05/18 11:14 07/05/18 16:51 07/05/18 19:39 07/06/18 04:00 Glucose (Fingerstick) 239 mg/dL (70-99) 185 mg/dL (70-99) 176 mg/dL (70-99) Creatine Kinase 79218 U/L (39-308) Test 07/06/18 07:14 Glucose (Fingerstick) 192 mg/dL (70-99) Microbiology 07/03/18 Blood Culture - Preliminary, Resulted NO GROWTH AFTER 2 DAYS Medications Current Medications Sodium Chloride 1,000 ml @ 1,000 mls/hr 1X ONCE IV Last administered on at 14:15; Start 07/03/18 at 14:15; Stop 07/03/18 at 15:14; Status DC Neomycin/ Polymyxin/ Bacitracin (Triple Antibiotic Ointment) 1 pkt 1X ONCE TP ; Start 07/03/18 at 14:15; Stop 07/03/18 at 14:50; Status DC Sodium Chloride 1,000 ml @ 1,000 mls/hr 1X ONCE IV Last administered on at 15:15; Start 07/03/18 at 15:15; Stop 07/03/18 at 16:14; Status DC Sodium Chloride 1,000 ml @ 1,000 mls/hr 1X ONCE IV Last administered on at 16:00; Start 07/03/18 at 16:00; Stop 07/03/18 at 16:59; Status DC Piperacillin Sod/ Tazobactam Sod 4.5 gm/Sodium Chloride 100 ml @ 200 mls/hr 1X ONCE IV ; Start 07/03/18 at 16:30; Stop 07/03/18 at 16:59; Status DC Ondansetron HCl (Zofran) 4 mg PRN Q8HRS PRN IV NAUSEA/VOMITING; Start 07/03/18 at 16:30; Stop 07/03/18 at 17:09; Status DC Insulin Human Lispro (HumaLOG) 0-5 UNITS TIDWMEALS SQ ; Start 07/03/18 at 17:00 ; Stop 07/03/18 at 17:00; Status DC Dextrose (Dextrose 50%-Water Syringe) 12.5 gm PRN Q15MIN PRN IV SEE COMMENTS; Start 07/03/18 at 16:30; Stop 07/03/18 at 17:10; Status DC Sodium Chloride 1,000 ml @ 125 mls/hr Q8H IV Last administered on 07/06/18at 05 :45; Start 07/03/18 at 17:00 Acetaminophen (Tylenol) 650 mg PRN Q6HRS PRN PO FEVER Last administered on 07/06at 06:12; Start 07/03/18 at 17:00 Ondansetron HCl (Zofran) 4 mg PRN Q6HRS PRN IV NAUSEA/VOMITING; Start 07/03/18 at 17:00 Morphine Sulfate (Morphine Sulfate) 2 mg PRN Q2HR PRN IV MODERATE TO SEVERE PAIN Last administered on 07/06/18at 03:46; Start 07/03/18 at 17:00 Tramadol HCl (Ultram) 50 mg PRN Q6HRS PRN PO MILD TO MODERATE PAIN Last administered on 07/05/18at 20:44; Start 07/03/18 at 17:00 Docusate Sodium (Colace) 100 mg PRN DAILY PRN PO CONSTIPATION Last administered on 07/05/18at 06:16; Start 07/03/18 at 17:00 Piperacillin Sod/ Tazobactam Sod 3.375 gm/Sodium Chloride 50 ml @ 100 mls/hr Q6HRS IV ; Start 07/04/18 at 00:00; Status UNV Piperacillin Sod/ Tazobactam Sod (Zosyn Per Pharmacy) 1 each PRN DAILY PRN MC SEE COMMENTS; Start 07/03/18 at 17:00; Stop 07/04/18 at 16:19; Status DC Linezolid/Dextrose 300 ml @ 300 mls/hr Q12HR IV Last administered on at 08:06; Start 07/04/18 at 09:00; Stop 07/04/18 at 09:45; Status DC Heparin Sodium (Porcine) (Heparin Sq) 5,000 unit Q8HRS SQ Last administered on 07/06/18at 05:44; Start 07/03/18 at 22:00 Insulin Human Lispro (HumaLOG) 0-9 UNITS TIDWMEALS SQ Last administered on 07/05at 17:17; Start 07/03/18 at 18:15 Dextrose (Dextrose 50%-Water Syringe) 12.5 gm PRN Q15MIN PRN IV SEE COMMENTS; Start 07/03/18 at 17:00 Linezolid/Dextrose 300 ml @ 300 mls/hr 1X ONCE IV Last administered on at 21:12; Start 07/03/18 at 18:00; Stop 07/03/18 at 18:59; Status DC Piperacillin Sod/ Tazobactam Sod 4.5 gm/Sodium Chloride 100 ml @ 200 mls/hr Q6HRS IV Last administered on 07/04/18at 05:29; Start 07/04/18 at 00:00; Stop 07/04/18 at 09:45; Status DC Lisinopril (Prinivil) 10 mg DAILY PO ; Start 07/04/18 at 10:00; Stop 07/04/18 at 10:04; Status DC Ziprasidone (Geodon) 80 mg BID PO Last administered on 07/05/18at 20:44; Start 07/04/18 at 10:00 Insulin Glargine (Lantus) 15 units DAILY SQ Last administered on 07/05/18at 08: 07; Start 07/04/18 at 10:00 Amlodipine Besylate (Norvasc) 10 mg DAILY PO Last administered on 07/04/18at 10: 22; Start 07/04/18 at 10:15; Stop 07/04/18 at 15:36; Status DC Tamsulosin HCl (Flomax) 0.4 mg QHS PO Last administered on 07/05/18at 20:44; Start 07/05/18 at 21:00 Tamsulosin HCl (Flomax) 0.4 mg 1X ONCE PO Last administered on 07/04/18at 12:42 ; Start 07/04/18 at 12:00; Stop 07/04/18 at 12:01; Status DC Labetalol HCl (Normodyne Iv Push) 20 mg PRN Q2HR PRN IVP HYPERTENSION, SEE COMMENTS; Start 07/04/18 at 11:45 Carvedilol (Coreg) 3.125 mg BIDWMEALS PO Last administered on 07/05/18at 17:12; Start 07/05/18 at 10:30 Active Scripts Active Reported Lisinopril 10 Mg Tablet 1 Tab PO DAILY Metformin Hcl 1,000 Mg Tablet 1,000 Mg PO BIDWMEALS Geodon (Ziprasidone Hcl) 80 Mg Capsule 1 Cap PO BID Vitals/I & O Vital Sign - Last 24 Hours 07/05/18 07/05/18 07/05/18 07/05/18 07:56 08:00 11:00 11:16 Temp 98.0 98.0 Pulse 108 103 Resp 20 20 B/P (MAP) 155/89 (111) 152/90 Pulse Ox 94 99 O2 Delivery Room Air Room Air Room Air 07/05/18 07/05/18 07/05/18 07/05/18 13:30 15:00 17:12 17:12 Temp 97.6 97.6 Pulse 102 102 Resp 20 18 20 B/P (MAP) 146/86 (106) 146/86 Pulse Ox 99 94 94 O2 Delivery Room Air Room Air Room Air 07/05/18 07/05/18 07/05/18 07/05/18 17:30 19:00 19:57 20:44 Temp 98.2 98.2 Pulse 102 Resp 20 20 B/P (MAP) 157/91 (113) Pulse Ox 94 94 O2 Delivery Room Air Room Air Room Air 07/05/18 07/05/18 07/05/18 07/05/18 21:44 22:12 22:42 23:00 Temp 98.0 98.0 Pulse 102 Resp 20 20 20 18 B/P (MAP) 159/76 (103) Pulse Ox 94 O2 Delivery Room Air Room Air Room Air Room Air 07/06/18 07/06/18 03:00 03:46 Temp 98.1 98.1 Pulse 103 Resp 17 20 B/P (MAP) 145/91 (109) Pulse Ox 93 O2 Delivery Room Air Room Air Intake and Output 07/05/18 07/05/18 07/06/18 15:00 23:00 07:00 Intake Total 900 ml 360 ml 2420 ml Output Total 4100 ml 1400 ml 1900 ml Balance -3200 ml -1040 ml 520 ml KEN HERZOG MD Jul 06, 2018 07:56
--- NOTE | 2018-07-06 08:49 | PDOC ---
SUBJECTIVE Subjective Pt resting comfortably. OBJECTIVE Objective Physical Exam: General appearance: sleeping, resting comfortably Head: Normocephalic, without obvious abnormality Eyes: conjunctivae/corneas clear. PERRL, EOM's intact. Fundi benign Lungs: regular respirations, non labored breathing Pelvic: tran catheter draining clear yellow urine Vital Signs Vital Signs Date Time Temp Pulse Resp B/P (MAP) Pulse Ox O2 Delivery O2 Flow Rate FiO2 07/06/18 07:00 98.5 107 20 135/82 (99) 93 Room Air 98.5 07/06/18 03:46 20 Room Air 07/06/18 03:00 98.1 103 17 145/91 (109) 93 Room Air 98.1 07/05/18 23:00 98.0 102 18 159/76 (103) 94 Room Air 98.0 07/05/18 22:42 20 Room Air 07/05/18 22:12 20 Room Air 07/05/18 21:44 20 Room Air 07/05/18 20:44 20 Room Air 07/05/18 19:57 Room Air 07/05/18 19:00 98.2 102 20 157/91 (113) 94 Room Air 98.2 07/05/18 17:30 94 07/05/18 17:12 102 146/86 07/05/18 17:12 20 94 Room Air 07/05/18 15:00 97.6 102 18 146/86 (106) 94 Room Air 97.6 07/05/18 13:30 20 99 Room Air 07/05/18 11:16 103 152/90 07/05/18 11:00 98.0 108 20 155/89 (111) 99 Room Air 98.0 I & O Intake and Output 07/06/18 07:00 Intake Total 3680 ml Output Total 7400 ml Balance -3720 ml Intake Oral 2680 ml IV Total 1000 ml Output Urine Total 7400 ml # Bowel Movements 2 PHYSICAL EXAM Physical Exam Physical Exam: General appearance: sleeping, resting comfortably Head: Normocephalic, without obvious abnormality Eyes: conjunctivae/corneas clear. PERRL, EOM's intact. Fundi benign Lungs: regular respirations, non labored breathing Pelvic: tran catheter draining clear yellow urine ASSESSMENT/PLAN Assessment/Plan Tran catheter-Will attempt voiding trial on patient tomorrow-orders written for nursing staff. Remove tran catheter on 07/07/18 at 0600. Encourage patient to drink and attempt to void every hour to hour and a half thereafter. Bladder scan patient between noon and 1 pm. Replace tran catheter for volume greater than 350. Continue daily flomax. Pt should go home on this medication whenever he does leave. Problems: (1) Tran catheter in place (2) Urinary retention COMMENT Lab Laboratory Tests Test 07/05/18 11:14 07/05/18 16:51 07/05/18 19:39 07/06/18 04:00 Glucose (Fingerstick) 239 mg/dL (70-99) 185 mg/dL (70-99) 176 mg/dL (70-99) Creatine Kinase 74614 U/L (39-308) Test 07/06/18 07:14 Glucose (Fingerstick) 192 mg/dL (70-99) SISI REN APRN Jul 06, 2018 08:49
[2018-07-06] MEDS: CARVEDILOL 3.125 MG TABLET. PO SCH ×2 (09:30→16:51)
[2018-07-06] MEDS: ZIPRASIDONE 20 MG CAPSULE PO SCH ×2 (09:32→20:36)
--- NOTE | 2018-07-06 09:35 | PDOC ---
SUBJECTIVE ROS No new concerns OBJECTIVE Vital Signs Vital Signs Date Time Temp Pulse Resp B/P (MAP) Pulse Ox O2 Delivery O2 Flow Rate FiO2 07/06/18 07:00 98.5 107 20 135/82 (99) 93 Room Air 98.5 I & 0 Intake and Output 07/06/18 07:01 Intake Total 3680 ml Output Total 7400 ml Balance -3720 ml Intake Oral 2680 ml IV Total 1000 ml Output Urine Total 7400 ml # Bowel Movements 2 PHYSICAL EXAM Physical Exam GEN.: nad HEENT: NECK: Supple. LUNGS: Clear to auscultation, non labored HEART: RRR, S1, S2 present. ABDOMEN: Soft, nontender. EXTREMITIES: No edema NEUROLOGIC: AxO x 3 SKIN: bl knee skin laceration from fall No CVA/SP tenderness DIAGNOSIS/ASSESSMENT Assessment & Plan TARYN- Etiology Rhabdomyolysis /Pre-renal CPK improving Renal function Improving, renal US and UA Normal Hyponatremia- Corrected for Glucose mildly low have been drinking lots of Soda, Urinary retention +-Brothers in place Urology on board, Voiding trial tomorrow Hypocalcemia- Sec to Rhabdo Avoid replacement unless pt symptomatic , to avoid Hypercalcemia, as pt improves Hyperkalemia- Resolved Hypotension- on admission Resolved with IVF DM- On metformin Will sign off COMMENT/RELEVANT DATA Meds Current Medications Medications (Trade) Dose Ordered Sig/Natasha Start Time Stop Time Status Last Admin Dose Admin Acetaminophen (Tylenol) 650 mg PRN Q6HRS PRN 07/03/18 17:00 07/06/18 06:12 650 MG Amlodipine Besylate (Norvasc) 10 mg DAILY 07/04/18 10:15 07/04/18 15:36 DC 07/04/18 10:22 10 MG Carvedilol (Coreg) 3.125 mg BIDWMEALS 07/05/18 10:30 07/05/18 17:12 3.125 MG Dextrose (Dextrose 50%-Water Syringe) 12.5 gm PRN Q15MIN PRN 07/03/18 17:00 Docusate Sodium (Colace) 100 mg PRN DAILY PRN 07/03/18 17:00 07/05/18 06:16 100 MG Heparin Sodium (Porcine) (Heparin Sq) 5,000 unit Q8HRS 07/03/18 22:00 07/06/18 05:44 5,000 UNIT Insulin Glargine (Lantus) 15 units DAILY 07/04/18 10:00 07/05/18 08:07 15 UNITS Insulin Human Lispro (HumaLOG) 0-9 UNITS TIDWMEALS 07/03/18 18:15 07/05/18 17:17 4 UNITS Labetalol HCl (Normodyne Iv Push) 20 mg PRN Q2HR PRN 07/04/18 11:45 Linezolid/Dextrose 300 ml @ 300 mls/hr 1X ONCE 07/03/18 18:00 07/03/18 18:59 DC 07/03/18 21:12 300 MLS/HR Lisinopril (Prinivil) 10 mg DAILY 07/04/18 10:00 07/04/18 10:04 DC Morphine Sulfate (Morphine Sulfate) 2 mg PRN Q2HR PRN 07/03/18 17:00 07/06/18 03:46 2 MG Neomycin/ Polymyxin/ Bacitracin (Triple Antibiotic Ointment) 1 pkt 1X ONCE 07/03/18 14:15 07/03/18 14:50 DC Ondansetron HCl (Zofran) 4 mg PRN Q6HRS PRN 07/03/18 17:00 Piperacillin Sod/ Tazobactam Sod (Zosyn Per Pharmacy) 1 each PRN DAILY PRN 07/03/18 17:00 07/04/18 16:19 DC Piperacillin Sod/ Tazobactam Sod 3.375 gm/Sodium Chloride 50 ml @ 100 mls/hr Q6HRS 07/04/18 00:00 UNV Piperacillin Sod/ Tazobactam Sod 4.5 gm/Sodium Chloride 100 ml @ 200 mls/hr Q6HRS 07/04/18 00:00 07/04/18 09:45 DC 07/04/18 05:29 200 MLS/HR Sodium Chloride 1,000 ml @ 125 mls/hr Q8H 07/03/18 17:00 07/06/18 05:45 125 MLS/HR Tamsulosin HCl (Flomax) 0.4 mg 1X ONCE 07/04/18 12:00 07/04/18 12:01 DC 07/04/18 12:42 0.4 MG Tramadol HCl (Ultram) 50 mg PRN Q6HRS PRN 07/03/18 17:00 07/05/18 20:44 50 MG Ziprasidone (Geodon) 80 mg BID 07/04/18 10:00 07/05/18 20:44 80 MG Lab Laboratory Tests Test 07/05/18 11:14 07/05/18 16:51 07/05/18 19:39 07/06/18 04:00 Glucose (Fingerstick) 239 mg/dL (70-99) 185 mg/dL (70-99) 176 mg/dL (70-99) Creatine Kinase 15457 U/L (39-308) Test 07/06/18 07:14 Glucose (Fingerstick) 192 mg/dL (70-99) Results All relevant outside records, renal labs, imaging studies, telemetry/EKG's were reviewed. JOSELO RAHMAN MD Jul 06, 2018 09:35
[2018-07-06] MEDS: INSULIN LISPRO 300 UNITS/3 ML INSULN.PEN. SQ SCH ×3 (09:41→16:55)
[2018-07-06] MEDS: INSULIN GLARGINE 300 UNITS/3 ML INSULN.PEN. SQ SCH (09:42)
[2018-07-06 10:03] LABS: ALBUMIN 2.4 g/dL (3.4-5.0); CALCIUM 8.6 mg/dL (8.5-10.1); CREATININE 1.1 mg/dL (0.7-1.3); GFR 69.2; PHOSPHORUS 2.3 mg/dL (2.6-4.7); POTASSIUM 4.1 mmol/L (3.5-5.1)
[2018-07-06 11:00] VITALS: BP 143/88
--- NOTE | 2018-07-06 11:16 | PDOC ---
Infectious Disease Note Subjective Subjective feeling good ROS ROS no n/v/d/sob Vital Sign Vital Signs Vital Signs Date Time Temp Pulse Resp B/P (MAP) Pulse Ox O2 Delivery O2 Flow Rate FiO2 07/06/18 09:30 107 135/82 07/06/18 07:00 98.5 20 93 Room Air 98.5 Physical Exam PHYSICAL EXAM GENERAL: Alert and oriented gentleman, not in any distress, not very cooperative. VITAL SIGNS: Stable, HEENT: NAD. NECK: Supple, no JVP, no lymphadenopathy. LUNGS: Clear. HEART: S1, S2 regular. ABDOMEN: Benign. EXTREMITIES: No edema or cyanosis. SKIN: Unremarkable except he has superficial abrasions on both knees. NEUROLOGIC: The patient does move all the extremities. Labs Lab Laboratory Tests Test 07/05/18 16:51 07/05/18 19:39 07/06/18 04:00 07/06/18 07:14 Glucose (Fingerstick) 185 mg/dL (70-99) 176 mg/dL (70-99) 192 mg/dL (70-99) Sodium Level 131 mmol/L (136-145) Potassium Level 4.1 mmol/L (3.5-5.1) Chloride Level 98 mmol/L (98-107) Carbon Dioxide Level 23 mmol/L (21-32) Anion Gap 10 (6-14) Blood Urea Nitrogen 14 mg/dL (8-26) Creatinine 1.1 mg/dL (0.7-1.3) Estimated GFR (Cockcroft-Gault) 69.2 Glucose Level 287 mg/dL (70-99) Calcium Level 8.6 mg/dL (8.5-10.1) Phosphorus Level 2.3 mg/dL (2.6-4.7) Creatine Kinase 31741 U/L (39-308) Albumin 2.4 g/dL (3.4-5.0) Micro Microbiology 07/03/18 Blood Culture - Preliminary, Resulted NO GROWTH AFTER 1 DAY Objective Assessment 1. The patient most likely had a seizure. Lactic acid of 30 that recovers very quickly has no other explanation ( except it could be lab error ). 2. Lactic acid secondary to seizure. 3. Elevated CPK secondary to #1. 4. Leukocytosis, reactive. 5. Dehydration with acute renal failure, which is improving with hydration. Plan Plan of Care off antibiotics fluids supportive care will s/o, call if questions ORTIZ CHOU MD Jul 06, 2018 11:16
--- NOTE | 2018-07-06 11:18 | PDOC ---
PROGRESS NOTES Chief Complaint Chief Complaint AMS, metabolic encephalopathy, possible seizure disorder, fall, syncope Acute rhabdomyolysis, CK climbing hypotension resolved with iv bolus lactate acidosis, with markedly high elevation and no pain TARYN, ATN, vs vasomotor hyperglycemia, dm2 htn, hld leukocytosis h/o mental issues mild malnutrition History of Present Illness History of Present Illness seizure likely from extent of CK elevation, discussed with ID and renal at length DC ssi, check hba1c need to verify home meds NS 125cc/h for now, 3L in ER, will repeat LA, BMP later repeat labs tmr dvt ppx PTOT ada DIET Vitals Vitals Vital Signs Date Time Temp Pulse Resp B/P (MAP) Pulse Ox O2 Delivery O2 Flow Rate FiO2 07/06/18 09:30 107 135/82 07/06/18 07:00 98.5 20 93 Room Air 98.5 Physical Exam Physical Exam GENERAL: Alert and oriented gentleman, not in any distress, not very cooperative. VITAL SIGNS: Stable, HEENT: NAD. NECK: Supple, no JVP, no lymphadenopathy. LUNGS: Clear. HEART: S1, S2 regular. ABDOMEN: Benign. EXTREMITIES: No edema or cyanosis. SKIN: Unremarkable except he has superficial abrasions on both knees. NEUROLOGIC: The patient does move all the extremities. General: Alert, Oriented X3, Cooperative, No acute distress Heart: Regular rate (sinus tach), Other (2/6 systolic murmur to LLS border) Lungs: Clear, Crackles Abdomen: Soft, Other (obese) Extremities: No cyanosis, Other (trace caroline le) Skin: Other (knee abrasion) Labs LABS Laboratory Tests Test 07/05/18 16:51 07/05/18 19:39 07/06/18 04:00 07/06/18 07:14 Glucose (Fingerstick) 185 mg/dL (70-99) 176 mg/dL (70-99) 192 mg/dL (70-99) Sodium Level 131 mmol/L (136-145) Potassium Level 4.1 mmol/L (3.5-5.1) Chloride Level 98 mmol/L (98-107) Carbon Dioxide Level 23 mmol/L (21-32) Anion Gap 10 (6-14) Blood Urea Nitrogen 14 mg/dL (8-26) Creatinine 1.1 mg/dL (0.7-1.3) Estimated GFR (Cockcroft-Gault) 69.2 Glucose Level 287 mg/dL (70-99) Calcium Level 8.6 mg/dL (8.5-10.1) Phosphorus Level 2.3 mg/dL (2.6-4.7) Creatine Kinase 26224 U/L (39-308) Albumin 2.4 g/dL (3.4-5.0) Assessment and Plan Assessmemt and Plan Problems Medical Problems: (1) Altered mental state Status: Acute (2) Hypotension Status: Acute (3) Lactic acidosis Status: Acute (4) Left knee pain Status: Acute (5) Left shoulder pain Status: Acute (6) Leukocytosis Status: Acute (7) Multiple abrasions Status: Acute (8) Renal insufficiency Status: Acute Comment Review of Relevant I have reviewed the following items murray (where applicable) has been applied. Labs Laboratory Tests Test 07/04/18 16:23 07/04/18 20:34 07/05/18 03:53 07/05/18 07:17 Glucose (Fingerstick) 200 mg/dL (70-99) 229 mg/dL (70-99) 197 mg/dL (70-99) Sodium Level 133 mmol/L (136-145) Potassium Level 4.3 mmol/L (3.5-5.1) Chloride Level 97 mmol/L (98-107) Carbon Dioxide Level 25 mmol/L (21-32) Anion Gap 11 (6-14) Blood Urea Nitrogen 13 mg/dL (8-26) Creatinine 1.2 mg/dL (0.7-1.3) Estimated GFR (Cockcroft-Gault) 62.6 Glucose Level 247 mg/dL (70-99) Calcium Level 7.8 mg/dL (8.5-10.1) Phosphorus Level 2.4 mg/dL (2.6-4.7) Creatine Kinase 67776 U/L (39-308) Albumin 2.8 g/dL (3.4-5.0) Test 07/05/18 11:14 07/05/18 16:51 07/05/18 19:39 07/06/18 04:00 Glucose (Fingerstick) 239 mg/dL (70-99) 185 mg/dL (70-99) 176 mg/dL (70-99) Sodium Level 131 mmol/L (136-145) Potassium Level 4.1 mmol/L (3.5-5.1) Chloride Level 98 mmol/L (98-107) Carbon Dioxide Level 23 mmol/L (21-32) Anion Gap 10 (6-14) Blood Urea Nitrogen 14 mg/dL (8-26) Creatinine 1.1 mg/dL (0.7-1.3) Estimated GFR (Cockcroft-Gault) 69.2 Glucose Level 287 mg/dL (70-99) Calcium Level 8.6 mg/dL (8.5-10.1) Phosphorus Level 2.3 mg/dL (2.6-4.7) Creatine Kinase 42791 U/L (39-308) Albumin 2.4 g/dL (3.4-5.0) Test 07/06/18 07:14 Glucose (Fingerstick) 192 mg/dL (70-99) Laboratory Tests Test 07/05/18 16:51 07/05/18 19:39 07/06/18 04:00 07/06/18 07:14 Glucose (Fingerstick) 185 mg/dL (70-99) 176 mg/dL (70-99) 192 mg/dL (70-99) Sodium Level 131 mmol/L (136-145) Potassium Level 4.1 mmol/L (3.5-5.1) Chloride Level 98 mmol/L (98-107) Carbon Dioxide Level 23 mmol/L (21-32) Anion Gap 10 (6-14) Blood Urea Nitrogen 14 mg/dL (8-26) Creatinine 1.1 mg/dL (0.7-1.3) Estimated GFR (Cockcroft-Gault) 69.2 Glucose Level 287 mg/dL (70-99) Calcium Level 8.6 mg/dL (8.5-10.1) Phosphorus Level 2.3 mg/dL (2.6-4.7) Creatine Kinase 23751 U/L (39-308) Albumin 2.4 g/dL (3.4-5.0) Microbiology 07/03/18 Blood Culture - Preliminary, Resulted NO GROWTH AFTER 2 DAYS Medications Current Medications Sodium Chloride 1,000 ml @ 1,000 mls/hr 1X ONCE IV Last administered on at 14:15; Start 07/03/18 at 14:15; Stop 07/03/18 at 15:14; Status DC Neomycin/ Polymyxin/ Bacitracin (Triple Antibiotic Ointment) 1 pkt 1X ONCE TP ; Start 07/03/18 at 14:15; Stop 07/03/18 at 14:50; Status DC Sodium Chloride 1,000 ml @ 1,000 mls/hr 1X ONCE IV Last administered on at 15:15; Start 07/03/18 at 15:15; Stop 07/03/18 at 16:14; Status DC Sodium Chloride 1,000 ml @ 1,000 mls/hr 1X ONCE IV Last administered on at 16:00; Start 07/03/18 at 16:00; Stop 07/03/18 at 16:59; Status DC Piperacillin Sod/ Tazobactam Sod 4.5 gm/Sodium Chloride 100 ml @ 200 mls/hr 1X ONCE IV ; Start 07/03/18 at 16:30; Stop 07/03/18 at 16:59; Status DC Ondansetron HCl (Zofran) 4 mg PRN Q8HRS PRN IV NAUSEA/VOMITING; Start 07/03/18 at 16:30; Stop 07/03/18 at 17:09; Status DC Insulin Human Lispro (HumaLOG) 0-5 UNITS TIDWMEALS SQ ; Start 07/03/18 at 17:00 ; Stop 07/03/18 at 17:00; Status DC Dextrose (Dextrose 50%-Water Syringe) 12.5 gm PRN Q15MIN PRN IV SEE COMMENTS; Start 07/03/18 at 16:30; Stop 07/03/18 at 17:10; Status DC Sodium Chloride 1,000 ml @ 125 mls/hr Q8H IV Last administered on 07/06/18at 05 :45; Start 07/03/18 at 17:00 Acetaminophen (Tylenol) 650 mg PRN Q6HRS PRN PO FEVER Last administered on 07/06at 09:32; Start 07/03/18 at 17:00 Ondansetron HCl (Zofran) 4 mg PRN Q6HRS PRN IV NAUSEA/VOMITING; Start 07/03/18 at 17:00 Morphine Sulfate (Morphine Sulfate) 2 mg PRN Q2HR PRN IV MODERATE TO SEVERE PAIN Last administered on 07/06/18at 03:46; Start 07/03/18 at 17:00 Tramadol HCl (Ultram) 50 mg PRN Q6HRS PRN PO MILD TO MODERATE PAIN Last administered on 07/05/18at 20:44; Start 07/03/18 at 17:00 Docusate Sodium (Colace) 100 mg PRN DAILY PRN PO CONSTIPATION Last administered on 07/05/18at 06:16; Start 07/03/18 at 17:00 Piperacillin Sod/ Tazobactam Sod 3.375 gm/Sodium Chloride 50 ml @ 100 mls/hr Q6HRS IV ; Start 07/04/18 at 00:00; Status UNV Piperacillin Sod/ Tazobactam Sod (Zosyn Per Pharmacy) 1 each PRN DAILY PRN MC SEE COMMENTS; Start 07/03/18 at 17:00; Stop 07/04/18 at 16:19; Status DC Linezolid/Dextrose 300 ml @ 300 mls/hr Q12HR IV Last administered on at 08:06; Start 07/04/18 at 09:00; Stop 07/04/18 at 09:45; Status DC Heparin Sodium (Porcine) (Heparin Sq) 5,000 unit Q8HRS SQ Last administered on 07/06/18at 05:44; Start 07/03/18 at 22:00 Insulin Human Lispro (HumaLOG) 0-9 UNITS TIDWMEALS SQ Last administered on 07/06at 09:41; Start 07/03/18 at 18:15 Dextrose (Dextrose 50%-Water Syringe) 12.5 gm PRN Q15MIN PRN IV SEE COMMENTS; Start 07/03/18 at 17:00 Linezolid/Dextrose 300 ml @ 300 mls/hr 1X ONCE IV Last administered on at 21:12; Start 07/03/18 at 18:00; Stop 07/03/18 at 18:59; Status DC Piperacillin Sod/ Tazobactam Sod 4.5 gm/Sodium Chloride 100 ml @ 200 mls/hr Q6HRS IV Last administered on 07/04/18at 05:29; Start 07/04/18 at 00:00; Stop 07/04/18 at 09:45; Status DC Lisinopril (Prinivil) 10 mg DAILY PO ; Start 07/04/18 at 10:00; Stop 07/04/18 at 10:04; Status DC Ziprasidone (Geodon) 80 mg BID PO Last administered on 07/06/18at 09:32; Start 07/04/18 at 10:00 Insulin Glargine (Lantus) 15 units DAILY SQ Last administered on 07/06/18at 09: 42; Start 07/04/18 at 10:00 Amlodipine Besylate (Norvasc) 10 mg DAILY PO Last administered on 07/04/18at 10: 22; Start 07/04/18 at 10:15; Stop 07/04/18 at 15:36; Status DC Tamsulosin HCl (Flomax) 0.4 mg QHS PO Last administered on 07/05/18at 20:44; Start 07/05/18 at 21:00 Tamsulosin HCl (Flomax) 0.4 mg 1X ONCE PO Last administered on 07/04/18at 12:42 ; Start 07/04/18 at 12:00; Stop 07/04/18 at 12:01; Status DC Labetalol HCl (Normodyne Iv Push) 20 mg PRN Q2HR PRN IVP HYPERTENSION, SEE COMMENTS; Start 07/04/18 at 11:45 Carvedilol (Coreg) 3.125 mg BIDWMEALS PO Last administered on 07/06/18at 09:30; Start 07/05/18 at 10:30 Active Scripts Active Reported Lisinopril 10 Mg Tablet 1 Tab PO DAILY Metformin Hcl 1,000 Mg Tablet 1,000 Mg PO BIDWMEALS Geodon (Ziprasidone Hcl) 80 Mg Capsule 1 Cap PO BID Vitals/I & O Vital Sign - Last 24 Hours 07/05/18 07/05/18 07/05/18 07/05/18 11:16 13:30 15:00 17:12 Temp 97.6 97.6 Pulse 103 102 Resp 20 18 20 B/P (MAP) 152/90 146/86 (106) Pulse Ox 99 94 94 O2 Delivery Room Air Room Air Room Air 07/05/18 07/05/18 07/05/18 07/05/18 17:12 17:30 19:00 19:57 Temp 98.2 98.2 Pulse 102 102 Resp 20 B/P (MAP) 146/86 157/91 (113) Pulse Ox 94 94 O2 Delivery Room Air Room Air 07/05/18 07/05/18 07/05/18 07/05/18 20:44 21:44 22:12 22:42 Resp 20 20 20 20 O2 Delivery Room Air Room Air Room Air Room Air 07/05/18 07/06/18 07/06/18 07/06/18 23:00 03:00 03:46 07:00 Temp 98.0 98.1 98.5 98.0 98.1 98.5 Pulse 102 103 107 Resp 18 17 20 20 B/P (MAP) 159/76 (103) 145/91 (109) 135/82 (99) Pulse Ox 94 93 93 O2 Delivery Room Air Room Air Room Air Room Air 07/06/18 09:30 Pulse 107 B/P (MAP) 135/82 Intake and Output 07/05/18 07/05/18 07/06/18 15:00 23:00 07:00 Intake Total 900 ml 360 ml 2420 ml Output Total 4100 ml 1400 ml 1900 ml Balance -3200 ml -1040 ml 520 ml KATHLEEN AU MD Jul 06, 2018 11:18
[2018-07-06] MEDS: traMADol 50 MG TABLET PO PRN ×2 (12:27→20:36)
[2018-07-06 15:00] VITALS: BP 138/93
[2018-07-06 19:00] VITALS: BP 130/77
[2018-07-06] MEDS: TAMSULOSIN 0.4 MG CAP.ER.24H. PO SCH (20:36)
[2018-07-06 23:00] VITALS: BP 139/91
[2018-07-07] MEDS: IV NORMAL SALINE 1000ML BAG 1,000 ML IV SCH ×3 (00:12→17:06)
[2018-07-07] MEDS: ACETAMINOPHEN 325 MG TABLET. PO PRN (02:14)
[2018-07-07 03:00] VITALS: BP 134/90
[2018-07-07] MEDS: HEPARIN PF for SUB-Q USE 5,000 UNIT/0.5 ML VIAL. SQ SCH ×3 (06:08→22:00)
[2018-07-07 07:00] VITALS: BP 138/102
--- NOTE | 2018-07-07 08:28 | PDOC ---
PROGRESS NOTES Chief Complaint Chief Complaint AMS, metabolic encephalopathy, possible seizure disorder, fall, syncope Acute rhabdomyolysis, CK climbing hypotension resolved with iv bolus lactate acidosis, with markedly high elevation and no pain TARYN, ATN, vs vasomotor hyperglycemia, dm2 htn, hld leukocytosis h/o mental issues mild malnutrition History of Present Illness History of Present Illness seizure likely from extent of CK elevation, discussed with patient. He is verbally abusive to staff repeatedly, however follows commands. CK still > 10, 000 today. Not ambulating Rhabdo - multifactorial. On IVF Acute renal failure - 2/2 rhabdo, improving, stopped renal labs, trending CK only now Acute encephalopathy - improved slightly, underlying psychotic disorder apparent with staff interaction past 24 hour. Avoid sedating meds DM - ssi, NS 125cc/h for now, 3L in ER dvt ppx PTOT ada DIET Vitals Vitals Vital Signs Date Time Temp Pulse Resp B/P (MAP) Pulse Ox O2 Delivery O2 Flow Rate FiO2 07/07/18 07:00 98.4 105 20 138/102 (114) 95 Room Air 98.4 Physical Exam Physical Exam GENERAL: Alert and oriented gentleman, not in any distress, not very cooperative. VITAL SIGNS: Stable, HEENT: NAD. NECK: Supple, no JVP, no lymphadenopathy. LUNGS: Clear. HEART: S1, S2 regular. ABDOMEN: Benign. EXTREMITIES: No edema or cyanosis. SKIN: Unremarkable except he has superficial abrasions on both knees. NEUROLOGIC: The patient does move all the extremities. General: Alert, Oriented X3, Cooperative, No acute distress Heart: Regular rate (sinus tach), Other (2/6 systolic murmur to LLS border) Lungs: Clear, Crackles Abdomen: Soft, Other (obese) Extremities: No cyanosis, Other (trace caroline le) Skin: Other (knee abrasion) Labs LABS Laboratory Tests Test 07/06/18 11:15 07/06/18 16:46 07/06/18 20:01 07/07/18 03:50 Glucose (Fingerstick) 217 mg/dL (70-99) 201 mg/dL (70-99) 187 mg/dL (70-99) Creatine Kinase 14872 U/L (39-308) Test 07/07/18 07:33 Glucose (Fingerstick) 251 mg/dL (70-99) Assessment and Plan Assessmemt and Plan Problems Medical Problems: (1) Altered mental state Status: Acute (2) Hypotension Status: Acute (3) Lactic acidosis Status: Acute (4) Left knee pain Status: Acute (5) Left shoulder pain Status: Acute (6) Leukocytosis Status: Acute (7) Multiple abrasions Status: Acute (8) Renal insufficiency Status: Acute Comment Review of Relevant I have reviewed the following items murray (where applicable) has been applied. Labs Laboratory Tests Test 07/05/18 11:14 07/05/18 16:51 07/05/18 19:39 07/06/18 04:00 Glucose (Fingerstick) 239 mg/dL (70-99) 185 mg/dL (70-99) 176 mg/dL (70-99) Sodium Level 131 mmol/L (136-145) Potassium Level 4.1 mmol/L (3.5-5.1) Chloride Level 98 mmol/L (98-107) Carbon Dioxide Level 23 mmol/L (21-32) Anion Gap 10 (6-14) Blood Urea Nitrogen 14 mg/dL (8-26) Creatinine 1.1 mg/dL (0.7-1.3) Estimated GFR (Cockcroft-Gault) 69.2 Glucose Level 287 mg/dL (70-99) Calcium Level 8.6 mg/dL (8.5-10.1) Phosphorus Level 2.3 mg/dL (2.6-4.7) Creatine Kinase 21924 U/L (39-308) Albumin 2.4 g/dL (3.4-5.0) Test 07/06/18 07:14 07/06/18 11:15 07/06/18 16:46 07/06/18 20:01 Glucose (Fingerstick) 192 mg/dL (70-99) 217 mg/dL (70-99) 201 mg/dL (70-99) 187 mg/dL (70-99) Test 07/07/18 03:50 07/07/18 07:33 Creatine Kinase 94599 U/L (39-308) Glucose (Fingerstick) 251 mg/dL (70-99) Laboratory Tests Test 07/06/18 11:15 07/06/18 16:46 07/06/18 20:01 07/07/18 03:50 Glucose (Fingerstick) 217 mg/dL (70-99) 201 mg/dL (70-99) 187 mg/dL (70-99) Creatine Kinase 39021 U/L (39-308) Test 07/07/18 07:33 Glucose (Fingerstick) 251 mg/dL (70-99) Microbiology 07/03/18 Blood Culture - Preliminary, Resulted NO GROWTH AFTER 3 DAYS Medications Current Medications Sodium Chloride 1,000 ml @ 1,000 mls/hr 1X ONCE IV Last administered on at 14:15; Start 07/03/18 at 14:15; Stop 07/03/18 at 15:14; Status DC Neomycin/ Polymyxin/ Bacitracin (Triple Antibiotic Ointment) 1 pkt 1X ONCE TP ; Start 07/03/18 at 14:15; Stop 07/03/18 at 14:50; Status DC Sodium Chloride 1,000 ml @ 1,000 mls/hr 1X ONCE IV Last administered on at 15:15; Start 07/03/18 at 15:15; Stop 07/03/18 at 16:14; Status DC Sodium Chloride 1,000 ml @ 1,000 mls/hr 1X ONCE IV Last administered on at 16:00; Start 07/03/18 at 16:00; Stop 07/03/18 at 16:59; Status DC Piperacillin Sod/ Tazobactam Sod 4.5 gm/Sodium Chloride 100 ml @ 200 mls/hr 1X ONCE IV ; Start 07/03/18 at 16:30; Stop 07/03/18 at 16:59; Status DC Ondansetron HCl (Zofran) 4 mg PRN Q8HRS PRN IV NAUSEA/VOMITING; Start 07/03/18 at 16:30; Stop 07/03/18 at 17:09; Status DC Insulin Human Lispro (HumaLOG) 0-5 UNITS TIDWMEALS SQ ; Start 07/03/18 at 17:00 ; Stop 07/03/18 at 17:00; Status DC Dextrose (Dextrose 50%-Water Syringe) 12.5 gm PRN Q15MIN PRN IV SEE COMMENTS; Start 07/03/18 at 16:30; Stop 07/03/18 at 17:10; Status DC Sodium Chloride 1,000 ml @ 125 mls/hr Q8H IV Last administered on 07/07/18at 00 :12; Start 07/03/18 at 17:00 Acetaminophen (Tylenol) 650 mg PRN Q6HRS PRN PO FEVER Last administered on 07/07at 02:14; Start 07/03/18 at 17:00 Ondansetron HCl (Zofran) 4 mg PRN Q6HRS PRN IV NAUSEA/VOMITING; Start 07/03/18 at 17:00 Morphine Sulfate (Morphine Sulfate) 2 mg PRN Q2HR PRN IV MODERATE TO SEVERE PAIN Last administered on 07/06/18 22:23; Start 07/03/18 at 17:00 Tramadol HCl (Ultram) 50 mg PRN Q6HRS PRN PO MILD TO MODERATE PAIN Last administered on 07/06/18 20:36; Start 07/03/18 at 17:00 Docusate Sodium (Colace) 100 mg PRN DAILY PRN PO CONSTIPATION Last administered on 07/05/18 06:16; Start 07/03/18 at 17:00 Piperacillin Sod/ Tazobactam Sod 3.375 gm/Sodium Chloride 50 ml @ 100 mls/hr Q6HRS IV ; Start 07/04/18 at 00:00; Status UNV Piperacillin Sod/ Tazobactam Sod (Zosyn Per Pharmacy) 1 each PRN DAILY PRN MC SEE COMMENTS; Start 07/03/18 at 17:00; Stop 07/04/18 at 16:19; Status DC Linezolid/Dextrose 300 ml @ 300 mls/hr Q12HR IV Last administered on at 08:06; Start 07/04/18 at 09:00; Stop 07/04/18 at 09:45; Status DC Heparin Sodium (Porcine) (Heparin Sq) 5,000 unit Q8HRS SQ Last administered on 07/07/18at 06:08; Start 07/03/18 at 22:00 Insulin Human Lispro (HumaLOG) 0-9 UNITS TIDWMEALS SQ Last administered on 07/06at 16:55; Start 07/03/18 at 18:15 Dextrose (Dextrose 50%-Water Syringe) 12.5 gm PRN Q15MIN PRN IV SEE COMMENTS; Start 07/03/18 at 17:00 Linezolid/Dextrose 300 ml @ 300 mls/hr 1X ONCE IV Last administered on at 21:12; Start 07/03/18 at 18:00; Stop 07/03/18 at 18:59; Status DC Piperacillin Sod/ Tazobactam Sod 4.5 gm/Sodium Chloride 100 ml @ 200 mls/hr Q6HRS IV Last administered on 07/04/18at 05:29; Start 07/04/18 at 00:00; Stop 07/04/18 at 09:45; Status DC Lisinopril (Prinivil) 10 mg DAILY PO ; Start 07/04/18 at 10:00; Stop 07/04/18 at 10:04; Status DC Ziprasidone (Geodon) 80 mg BID PO Last administered on 07/06/18at 20:36; Start 07/04/18 at 10:00 Insulin Glargine (Lantus) 15 units DAILY SQ Last administered on 07/06/18at 09: 42; Start 07/04/18 at 10:00 Amlodipine Besylate (Norvasc) 10 mg DAILY PO Last administered on 07/04/18at 10: 22; Start 07/04/18 at 10:15; Stop 07/04/18 at 15:36; Status DC Tamsulosin HCl (Flomax) 0.4 mg QHS PO Last administered on 07/06/18at 20:36; Start 07/05/18 at 21:00 Tamsulosin HCl (Flomax) 0.4 mg 1X ONCE PO Last administered on 07/04/18at 12:42 ; Start 07/04/18 at 12:00; Stop 07/04/18 at 12:01; Status DC Labetalol HCl (Normodyne Iv Push) 20 mg PRN Q2HR PRN IVP HYPERTENSION, SEE COMMENTS; Start 07/04/18 at 11:45 Carvedilol (Coreg) 3.125 mg BIDWMEALS PO Last administered on 07/06/18at 16:51; Start 07/05/18 at 10:30 Active Scripts Active Reported Lisinopril 10 Mg Tablet 1 Tab PO DAILY Metformin Hcl 1,000 Mg Tablet 1,000 Mg PO BIDWMEALS Geodon (Ziprasidone Hcl) 80 Mg Capsule 1 Cap PO BID Vitals/I & O Vital Sign - Last 24 Hours 07/06/18 07/06/18 07/06/18/5/18 09:30 11:00 12:27 15:00 Temp 98.6 100.2 98.6 100.2 Pulse 107 99 105 Resp 20 20 B/P (MAP) 135/82 143/88 (106) 138/93 (108) Pulse Ox 93 93 93 O2 Delivery Room Air Room Air Room Air 07/06/18 07/06/18 07/06/18 07/06/18 16:51 19:00 20:00 20:36 Temp 98.4 98.4 Pulse 105 97 Resp 20 B/P (MAP) 138/93 130/77 (94) Pulse Ox 94 93 O2 Delivery Room Air Room Air Room Air 07/06/18 07/06/18 07/06/18 07/07/18 21:36 22:23 23:00 03:00 Temp 99.5 98.7 99.5 98.7 Pulse 101 98 Resp 20 20 B/P (MAP) 139/91 (107) 134/90 (105) Pulse Ox 93 93 93 95 O2 Delivery Room Air Room Air Room Air Room Air 07/07/18 07:00 Temp 98.4 98.4 Pulse 105 Resp 20 B/P (MAP) 138/102 (114) Pulse Ox 95 O2 Delivery Room Air Intake and Output 07/06/18 07/06/18 07/07/18 15:00 23:00 07:00 Intake Total 340 ml 3280 ml 400 ml Output Total 5145 ml 3575 ml Balance 340 ml -1865 ml -3175 ml TRACY FLORENCE MD Jul 07, 2018 08:28
[2018-07-07] MEDS: MORPHINE SULFATE 2 MG/ML VIAL. IV PRN ×3 (08:30→22:49)
[2018-07-07] MEDS: traMADol 50 MG TABLET PO PRN ×2 (08:30→19:52)
[2018-07-07] MEDS: CARVEDILOL 3.125 MG TABLET. PO SCH ×2 (08:31→17:05)
[2018-07-07] MEDS: ZIPRASIDONE 20 MG CAPSULE PO SCH ×2 (08:31→19:53)
[2018-07-07] MEDS: INSULIN LISPRO 300 UNITS/3 ML INSULN.PEN. SQ SCH ×3 (08:42→17:08)
[2018-07-07] MEDS: INSULIN GLARGINE 300 UNITS/3 ML INSULN.PEN. SQ SCH (08:43)
[2018-07-07 10:30] VITALS: BP 137/88
--- NOTE | 2018-07-07 10:39 | PDOC ---
PROGRESS NOTE SUBJECTIVE: HPI: Catheter removed this AM. Reports voiding hourly since that time. At baseline void Q30 min during the daytime, no nocturia, strong stream, rare hesitancy. Problems: Problems Medical Problems: (1) Altered mental state Status: Acute (2) Hypotension Status: Acute (3) Lactic acidosis Status: Acute (4) Left knee pain Status: Acute (5) Left shoulder pain Status: Acute (6) Leukocytosis Status: Acute (7) Multiple abrasions Status: Acute (8) Renal insufficiency Status: Acute OBJECTIVE: Vital Signs: Vital Signs Date Time Temp Pulse Resp B/P (MAP) Pulse Ox O2 Delivery O2 Flow Rate FiO2 07/07/18 08:31 105 138/102 07/07/18 08:30 95 Room Air 07/07/18 08:30 Room Air 07/07/18 07:00 98.4 105 20 138/102 (114) 95 Room Air 98.4 07/07/18 03:00 98.7 98 20 134/90 (105) 95 Room Air 98.7 07/06/18 23:00 99.5 101 20 139/91 (107) 93 Room Air 99.5 07/06/18 22:23 93 Room Air 07/06/18 21:36 93 Room Air 07/06/18 20:36 93 Room Air 07/06/18 20:00 Room Air 07/06/18 19:00 98.4 97 20 130/77 (94) 94 Room Air 98.4 07/06/18 16:51 105 138/93 07/06/18 15:00 100.2 105 20 138/93 (108) 93 Room Air 100.2 07/06/18 12:27 93 Room Air 07/06/18 11:00 98.6 99 20 143/88 (106) 93 Room Air 98.6 I & O Intake and Output 07/07/18 07:00 Intake Total 4020 ml Output Total 8720 ml Balance -4700 ml Intake Oral 4020 ml Output Urine Total 8720 ml # Bowel Movements 3 PHYSICAL EXAM: Physical Exam: General: Pleasant, no acute distress, well groomed Eyes: conjunctiva anicteric ENT: moist oral mucosa Neck: Trachea midline Respiratory: unlabored breathing, not using accessory muscles Cardiovascular: normal temperature Skin: no rashes or skin lesions on visualized skin Psych: normal mood, affect. Alert and oriented x 3. LABS: No new ASSESSMENT & PLAN 58 yo M with urinary retention 2/2 acute encephalopathy. Now voiding with frequency, which per his report is his baseline. Suspect that this might be more of a chronic issue. Will obtain bladder scan following the next 3 voids to ensure adequate emptying Can f/u with his outside urologist upon discharge to further discuss his voiding complaints Will follow peripherally, please call if any acute changes Problem List: Problems Medical Problems: (1) Altered mental state Status: Acute (2) Hypotension Status: Acute (3) Lactic acidosis Status: Acute (4) Left knee pain Status: Acute (5) Left shoulder pain Status: Acute (6) Leukocytosis Status: Acute (7) Multiple abrasions Status: Acute (8) Renal insufficiency Status: Acute TERESA PERERA MD Jul 07, 2018 10:39
[2018-07-07 15:00] VITALS: BP 142/92
[2018-07-07 19:00] VITALS: BP 117/77
[2018-07-07] MEDS: TAMSULOSIN 0.4 MG CAP.ER.24H. PO SCH (19:53)
[2018-07-07 23:00] VITALS: BP 147/91
[2018-07-08] MEDS: IV NORMAL SALINE 1000ML BAG 1,000 ML IV SCH ×2 (00:30→09:44)
[2018-07-08 03:00] VITALS: BP 149/84
[2018-07-08] MEDS: traMADol 50 MG TABLET PO PRN (05:46)
[2018-07-08] MEDS: HEPARIN PF for SUB-Q USE 5,000 UNIT/0.5 ML VIAL. SQ SCH (05:51)
[2018-07-08 07:00] VITALS: BP 155/96
--- NOTE | 2018-07-08 07:35 | PDOC ---
PROGRESS NOTES Chief Complaint Chief Complaint AMS, metabolic encephalopathy, possible seizure disorder, fall, syncope Acute rhabdomyolysis, CK climbing hypotension resolved with iv bolus lactate acidosis, with markedly high elevation and no pain TARYN, ATN, vs vasomotor hyperglycemia, dm2 htn, hld leukocytosis h/o mental issues mild malnutrition History of Present Illness History of Present Illness seizure likely from extent of CK elevation, discussed with patient. He is verbally abusive to staff repeatedly, however follows commands. CK still > 10, 000 today. Not ambulating Rhabdo - multifactorial. On IVF Acute renal failure - 2/2 rhabdo, improving, stopped renal labs, trending CK only now Acute encephalopathy - improved slightly, underlying psychotic disorder apparent with staff interaction past 24 hour. Avoid sedating meds DM - ssi, NS 125cc/h for now, 3L in ER dvt ppx PTOT ada DIET Vitals Vitals Vital Signs Date Time Temp Pulse Resp B/P (MAP) Pulse Ox O2 Delivery O2 Flow Rate FiO2 07/08/18 05:46 20 Room Air 07/08/18 03:00 98.1 96 149/84 (105) 92 98.1 Physical Exam Physical Exam GENERAL: Alert and oriented gentleman, not in any distress, not very cooperative. VITAL SIGNS: Stable, HEENT: NAD. NECK: Supple, no JVP, no lymphadenopathy. LUNGS: Clear. HEART: S1, S2 regular. ABDOMEN: Benign. EXTREMITIES: No edema or cyanosis. SKIN: Unremarkable except he has superficial abrasions on both knees. NEUROLOGIC: The patient does move all the extremities. General: Alert, Oriented X3, Cooperative, No acute distress Heart: Regular rate (sinus tach), Other (2/6 systolic murmur to LLS border) Lungs: Clear, Crackles Abdomen: Soft, Other (obese) Extremities: No cyanosis, Other (trace caroline le) Skin: Other (knee abrasion) Labs LABS Laboratory Tests Test 07/07/18 11:48 07/07/18 16:41 07/07/18 19:41 07/08/18 00:12 Glucose (Fingerstick) 207 mg/dL (70-99) 242 mg/dL (70-99) 206 mg/dL (70-99) 179 mg/dL (70-99) Test 07/08/18 02:47 Glucose (Fingerstick) 213 mg/dL (70-99) Assessment and Plan Assessmemt and Plan Problems Medical Problems: (1) Altered mental state Status: Acute (2) Hypotension Status: Acute (3) Lactic acidosis Status: Acute (4) Left knee pain Status: Acute (5) Left shoulder pain Status: Acute (6) Leukocytosis Status: Acute (7) Multiple abrasions Status: Acute (8) Renal insufficiency Status: Acute Comment Review of Relevant I have reviewed the following items murray (where applicable) has been applied. Labs Laboratory Tests Test 07/06/18 11:15 07/06/18 16:46 07/06/18 20:01 07/07/18 03:50 Glucose (Fingerstick) 217 mg/dL (70-99) 201 mg/dL (70-99) 187 mg/dL (70-99) Creatine Kinase 34339 U/L (39-308) Test 07/07/18 07:33 07/07/18 11:48 07/07/18 16:41 07/07/18 19:41 Glucose (Fingerstick) 251 mg/dL (70-99) 207 mg/dL (70-99) 242 mg/dL (70-99) 206 mg/dL (70-99) Test 07/08/18 00:12 07/08/18 02:47 Glucose (Fingerstick) 179 mg/dL (70-99) 213 mg/dL (70-99) Laboratory Tests Test 07/07/18 11:48 07/07/18 16:41 07/07/18 19:41 07/08/18 00:12 Glucose (Fingerstick) 207 mg/dL (70-99) 242 mg/dL (70-99) 206 mg/dL (70-99) 179 mg/dL (70-99) Test 07/08/18 02:47 Glucose (Fingerstick) 213 mg/dL (70-99) Microbiology 07/03/18 Blood Culture - Preliminary, Resulted NO GROWTH AFTER 4 DAYS Medications Current Medications Sodium Chloride 1,000 ml @ 1,000 mls/hr 1X ONCE IV Last administered on at 14:15; Start 07/03/18 at 14:15; Stop 07/03/18 at 15:14; Status DC Neomycin/ Polymyxin/ Bacitracin (Triple Antibiotic Ointment) 1 pkt 1X ONCE TP ; Start 07/03/18 at 14:15; Stop 07/03/18 at 14:50; Status DC Sodium Chloride 1,000 ml @ 1,000 mls/hr 1X ONCE IV Last administered on at 15:15; Start 07/03/18 at 15:15; Stop 07/03/18 at 16:14; Status DC Sodium Chloride 1,000 ml @ 1,000 mls/hr 1X ONCE IV Last administered on at 16:00; Start 07/03/18 at 16:00; Stop 07/03/18 at 16:59; Status DC Piperacillin Sod/ Tazobactam Sod 4.5 gm/Sodium Chloride 100 ml @ 200 mls/hr 1X ONCE IV ; Start 07/03/18 at 16:30; Stop 07/03/18 at 16:59; Status DC Ondansetron HCl (Zofran) 4 mg PRN Q8HRS PRN IV NAUSEA/VOMITING; Start 07/03/18 at 16:30; Stop 07/03/18 at 17:09; Status DC Insulin Human Lispro (HumaLOG) 0-5 UNITS TIDWMEALS SQ ; Start 07/03/18 at 17:00 ; Stop 07/03/18 at 17:00; Status DC Dextrose (Dextrose 50%-Water Syringe) 12.5 gm PRN Q15MIN PRN IV SEE COMMENTS; Start 07/03/18 at 16:30; Stop 07/03/18 at 17:10; Status DC Sodium Chloride 1,000 ml @ 125 mls/hr Q8H IV Last administered on 07/08/18at 00 :30; Start 07/03/18 at 17:00 Acetaminophen (Tylenol) 650 mg PRN Q6HRS PRN PO FEVER Last administered on 07/07at 02:14; Start 07/03/18 at 17:00 Ondansetron HCl (Zofran) 4 mg PRN Q6HRS PRN IV NAUSEA/VOMITING; Start 07/03/18 at 17:00 Morphine Sulfate (Morphine Sulfate) 2 mg PRN Q2HR PRN IV MODERATE TO SEVERE PAIN Last administered on 07/07/18at 22:49; Start 07/03/18 at 17:00 Tramadol HCl (Ultram) 50 mg PRN Q6HRS PRN PO MILD TO MODERATE PAIN Last administered on 07/08/18at 05:46; Start 07/03/18 at 17:00 Docusate Sodium (Colace) 100 mg PRN DAILY PRN PO CONSTIPATION Last administered on 07/05/18at 06:16; Start 07/03/18 at 17:00 Piperacillin Sod/ Tazobactam Sod 3.375 gm/Sodium Chloride 50 ml @ 100 mls/hr Q6HRS IV ; Start 07/04/18 at 00:00; Status UNV Piperacillin Sod/ Tazobactam Sod (Zosyn Per Pharmacy) 1 each PRN DAILY PRN MC SEE COMMENTS; Start 07/03/18 at 17:00; Stop 07/04/18 at 16:19; Status DC Linezolid/Dextrose 300 ml @ 300 mls/hr Q12HR IV Last administered on at 08:06; Start 07/04/18 at 09:00; Stop 07/04/18 at 09:45; Status DC Heparin Sodium (Porcine) (Heparin Sq) 5,000 unit Q8HRS SQ Last administered on 07/08/18at 05:51; Start 07/03/18 at 22:00 Insulin Human Lispro (HumaLOG) 0-9 UNITS TIDWMEALS SQ Last administered on 07/07at 17:08; Start 07/03/18 at 18:15 Dextrose (Dextrose 50%-Water Syringe) 12.5 gm PRN Q15MIN PRN IV SEE COMMENTS; Start 07/03/18 at 17:00 Linezolid/Dextrose 300 ml @ 300 mls/hr 1X ONCE IV Last administered on at 21:12; Start 07/03/18 at 18:00; Stop 07/03/18 at 18:59; Status DC Piperacillin Sod/ Tazobactam Sod 4.5 gm/Sodium Chloride 100 ml @ 200 mls/hr Q6HRS IV Last administered on 07/04/18at 05:29; Start 07/04/18 at 00:00; Stop 07/04/18 at 09:45; Status DC Lisinopril (Prinivil) 10 mg DAILY PO ; Start 07/04/18 at 10:00; Stop 07/04/18 at 10:04; Status DC Ziprasidone (Geodon) 80 mg BID PO Last administered on 07/07/18 19:53; Start 07/04/18 at 10:00 Insulin Glargine (Lantus) 15 units DAILY SQ Last administered on 07/07/18at 08: 43; Start 07/04/18 at 10:00 Amlodipine Besylate (Norvasc) 10 mg DAILY PO Last administered on 07/04/18at 10: 22; Start 07/04/18 at 10:15; Stop 07/04/18 at 15:36; Status DC Tamsulosin HCl (Flomax) 0.4 mg QHS PO Last administered on 07/07/18at 19:53; Start 07/05/18 at 21:00 Tamsulosin HCl (Flomax) 0.4 mg 1X ONCE PO Last administered on 07/04/18at 12:42 ; Start 07/04/18 at 12:00; Stop 07/04/18 at 12:01; Status DC Labetalol HCl (Normodyne Iv Push) 20 mg PRN Q2HR PRN IVP HYPERTENSION, SEE COMMENTS; Start 07/04/18 at 11:45 Carvedilol (Coreg) 3.125 mg BIDWMEALS PO Last administered on 07/07/18 17:05; Start 07/05/18 at 10:30 Active Scripts Active Reported Lisinopril 10 Mg Tablet 1 Tab PO DAILY Metformin Hcl 1,000 Mg Tablet 1,000 Mg PO BIDWMEALS Geodon (Ziprasidone Hcl) 80 Mg Capsule 1 Cap PO BID Vitals/I & O Vital Sign - Last 24 Hours 07/07/18 07/07/18 07/07/18 07/07/18 08:00 08:30 08:30 08:31 Pulse 105 B/P (MAP) 138/102 Pulse Ox 95 O2 Delivery Room Air Room Air Room Air 07/07/18 07/07/18 07/07/18 07/07/18 09:00 09:30 10:30 15:00 Temp 97.8 97.8 97.8 97.8 Pulse 99 96 Resp 20 20 B/P (MAP) 137/88 (104) 142/92 (109) Pulse Ox 95 95 95 O2 Delivery Room Air Room Air Room Air 07/07/18 07/07/18 07/07/18 07/07/18 17:05 19:00 19:52 19:53 Temp 99.2 99.2 Pulse 96 96 Resp 18 20 20 B/P (MAP) 142/92 117/77 (90) Pulse Ox 93 O2 Delivery Room Air Room Air Room Air 07/07/18 07/07/18 07/07/18 07/07/18 20:00 20:52 22:49 23:00 Temp 97.9 97.9 Pulse 95 Resp 20 20 18 B/P (MAP) 147/91 (109) Pulse Ox 94 O2 Delivery Room Air Room Air Room Air 07/07/18 07/08/18 07/08/18 23:19 03:00 05:46 Temp 98.1 98.1 Pulse 96 Resp 20 18 20 B/P (MAP) 149/84 (105) Pulse Ox 92 O2 Delivery Room Air Room Air Room Air Intake and Output 07/07/18 07/07/18 07/08/18 15:00 23:00 07:00 Intake Total 600 ml 2890 ml 1500 ml Output Total 250 ml 1300 ml 900 ml Balance 350 ml 1590 ml 600 ml TRACY FLORENCE MD Jul 08, 2018 07:35
[2018-07-08] MEDS: ZIPRASIDONE 20 MG CAPSULE PO SCH (09:38)
[2018-07-08] MEDS: CARVEDILOL 3.125 MG TABLET. PO SCH (09:39)
[2018-07-08] MEDS: INSULIN LISPRO 300 UNITS/3 ML INSULN.PEN. SQ SCH ×2 (09:46→12:00)
[2018-07-08] MEDS: INSULIN GLARGINE 300 UNITS/3 ML INSULN.PEN. SQ SCH (09:47)
[2018-07-08 11:00] VITALS: BP 149/86
[2018-07-08] MEDS ORDERED: INSULIN LISPRO 300 UNITS/3 ML INSULN.PEN. SQ SCH (11:30)
[2018-07-09] MEDS ORDERED: CEPH500C PO (09:39)
== END 2018-07-08 12:50 | disposition home or self-care (01) | DRG 280 ==
LOC: ER 13:46 → 5 SOUTH 17:20
PROVIDERS: ADMIT Internal Medicine; ATTEND Internal Medicine
PROC: 4A00X4Z Measurement of Central Nervous Electrical Activity, External Approach (ICD-10-PCS; principal; 2018-07-05)
DX: I21.A1 Myocardial infarction type 2 (principal); N17.0 Acute kidney failure with tubular necrosis; T67.0XXA Heatstroke and sunstroke, initial encounter; E44.1 Mild protein-calorie malnutrition; E87.2 Acidosis; M62.82 Rhabdomyolysis; E87.1 Hypo-osmolality and hyponatremia; D72.829 Elevated white blood cell count, unspecified; D75.89 Other specified diseases of blood and blood-forming organs; E11.65 Type 2 diabetes mellitus with hyperglycemia; E66.9 Obesity, unspecified; E78.00 Pure hypercholesterolemia, unspecified; E78.5 Hyperlipidemia, unspecified; E86.0 Dehydration; F31.9 Bipolar disorder, unspecified; I10 Essential (primary) hypertension; W18.30XA Fall on same level, unspecified, initial encounter; Y93.01 Activity, walking, marching and hiking; M19.90 Unspecified osteoarthritis, unspecified site; I95.9 Hypotension, unspecified; R33.9 Retention of urine, unspecified; M25.512 Pain in left shoulder; M25.562 Pain in left knee; E83.51 Hypocalcemia; E87.5 Hyperkalemia; S80.212A Abrasion, left knee, initial encounter; S80.211A Abrasion, right knee, initial encounter; G40.909 Epilepsy, unspecified, not intractable, without status epilepticus; Z79.899 Other long term (current) drug therapy; Z82.49 Family history of ischemic heart disease and other diseases of the circulatory system; Y92.89 Other specified places as the place of occurrence of the external cause; Y99.8 Other external cause status; Z68.34 Body mass index [BMI] 34.0-34.9, adult; Z79.84 Long term (current) use of oral hypoglycemic drugs; Z87.891 Personal history of nicotine dependence; Z80.9 Family history of malignant neoplasm, unspecified
CPT/HCPCS: 36415; 70450; 70551; 71045; 72125; 73030; 73562; 76770; 78580; 80048; 80053; 80061; 80069; 80307; 81001; 82550; 82553; 82962; 83036; 83605; 83690; 83735; 83880; 84443; 84484; 85007; 85025; 85610; 87040; 93005; 93306; 95816; 96360; 96361; 96374; A9540; G0480; J1815; J2020; J2270; J2543; J7030; P9612; 97116; 97530; 99291-25; G0479

== ENCOUNTER 2018-07-09 09:25 | Emergency (ER) | payer MEDICARE ==
[~2018-07-09] VITALS: Ht 182.9 cm; Wt 122.5 kg
[2018-07-09 09:25] VITALS: BP 131/67
[~2018-07-09 09:25] MED LIST: LISI10TA2 PO; METF10007 PO; ZIPR80CA2 PO
[2018-07-09] MEDS ORDERED: CEPH500C PO (09:39)
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
== END 2018-07-09 09:56 | disposition home or self-care (01) ==
LOC: ER 09:25
DX: S00.31XA Abrasion of nose, initial encounter (principal); S80.211A Abrasion, right knee, initial encounter; F31.9 Bipolar disorder, unspecified; E11.9 Type 2 diabetes mellitus without complications; E78.00 Pure hypercholesterolemia, unspecified; I10 Essential (primary) hypertension; V89.2XXA Person injured in unspecified motor-vehicle accident, traffic, initial encounter; Y93.89 Activity, other specified; Y92.488 Other paved roadways as the place of occurrence of the external cause; Y99.8 Other external cause status
CPT/HCPCS: 99283